=== PATIENT | male | born 1965 | race Caucasian/White ===

== ENCOUNTER 2017-12-09 08:37 | Day surgery (SDC) | payer OTHER, SELFPAY ==
[2017-12-09 08:52] VITALS: BP 101/76; PULSE 89; RESP 16; TEMP 36.6; O2SAT 98; BMI 30.4
--- NOTE | 2017-12-09 10:07 | COLBX_PTH ---
PATIENT: MARIELY ELIZABETH LOC: EN U#:[id number] AGE/SX: 52/M ROOM: RE12/09/[address]: Dr. Edmundo King MD : 1965 BED: DIS: 12/09/2017 SPEC #: [id number] RECD: 12/09/17 11:32 STATUS: ZURI LORENZO #: [id number] CHERY: 12/09/17 10:[address]: Edmundo King DEPT: SURGICAL PATHOLOGY RECD BY: Divya Curtis ENTERED: 12/09/17 12:00 SP TYPE: COLON BX OTHR DR: Dr. Brandon Chen MD Tissues: Cecum, NOS Procedures: Surgery Specimen Level IV HEADER OPERATION: Colonoscopy PRE-OP DIAGNOSIS: Abdominal pain TISSUE SUBMITTED: Cecal polyp MICROSCOPIC DIAGNOSIS Cecal polyp, biopsy: Tubular adenoma. AM:elsi 12/12/17 COMMENT Case has been reviewed in consultation with Dr. Santillan who concurs with the above diagnosis. IDC:SJ MICROSCOPIC DESCRIPTION Slides are reviewed. GROSS DESCRIPTION Received in fixative is one container labeled with the patient's name and designated cecal polyp. The specimen consists of one irregular fragment of light gonzalez soft tissue that measures 0.3 x 0.2 x 0.2 cm. The specimen is totally submitted in one cassette. / CHALO:elsi 12/09/17 TC:5 CPT: 60523
[2017-12-09 10:20] VITALS: BP 101/76; BP 87/58; PULSE 78; RESP 16; TEMP 36.3; O2SAT 97
--- NOTE | 2017-12-09 10:23 | PCM.OPRPT ---
Problem List (1) Colonic thickening Status: Acute Report of Operation Date of Procedure: 12/09/17 Pre-Operative Diagnosis: Thickening of the distal transverse colon on CAT scan Post-Operative Diagnosis: Cecum polyp. Diverticulosis of the entire colon Surgery/Procedure Performed:: Colonoscopy with snare polypectomy Specimen's removed: Cecum polyp Description of Procedure: The major risks and benefits associated with the procedure were explained to the patient in detail. The patient verbalized understanding and agreement with the same. The patient was brought to the endoscopy suite. After adequate sedation was achieved, the patient was placed in the left lateral decubitus position and a digital rectal exam was performed. This examination was within normal limits. A well-lubricated colonoscope was then inserted into the rectum and advanced under direct visualization to the level of the cecum. The bowel prep was good. The cecum was identified by both visual and anatomic landmarks. A photograph was taken of the end of the cecum. The scope was then fully withdrawn while examining the color, texture, anatomy and integrity of the mucosa from the cecum to the anal canal. The findings were consistent with normal colonic mucosa. The patient had diverticulosis of the entire colon. He had a few very large diverticuli in the cecum. One of these contain a polyp which was removed with cautery snare. Over 6 minutes were taken to examine the colonic mucosa. There was no active inflammation. There were no other polyps. There was no thickening of the transverse colon that I identified. I did not find any colitis. Upon reaching the rectum the scope was retroflexed to examine the distal rectal vault. The scope was then straightened and was completely retrieved upon exiting the anal canal and the procedure was terminated. The patient was then transferred to the recovery room in stable condition. Recommendations for follow up: Dependent on pathology
[2017-12-09 10:25] VITALS: BP 101/76; BP 91/62; PULSE 70; RESP 16; O2SAT 99
[2017-12-09 10:30] VITALS: BP 101/76; BP 92/62; PULSE 75; RESP 16; O2SAT 99
[2017-12-09 10:35] VITALS: BP 101/76; BP 90/62; PULSE 64; RESP 16; TEMP 36.3; O2SAT 99
[2017-12-09 10:52] VITALS: BP 101/76
== END 2017-12-09 10:55 | disposition home or self-care (01) ==
LOC: EN 08:37 → AC 08:38
PROVIDERS: Family Provider Family Medicine; PCP Family Medicine; Visit Provider Surgery
PROC: 0DJD8ZZ Inspection of Lower Intestinal Tract, Via Natural or Artificial Opening Endoscopic (ICD-10-PCS; CPT 45378; principal; 2017-12-09 09:40)
DX: D12.0 Benign neoplasm of cecum (principal); K57.30 Diverticulosis of large intestine without perforation or abscess without bleeding; I10 Essential (primary) hypertension; E78.00 Pure hypercholesterolemia, unspecified; F17.220 Nicotine dependence, chewing tobacco, uncomplicated; Z79.899 Other long term (current) drug therapy
CPT/HCPCS: 45385; 88305; J7120

== ENCOUNTER → 2017-12-16 11:02 | Outpatient (CLI) | payer OTHER, SELFPAY ==
[2017-12-16 14:41] LABS: Vitamin B12 547 pg/mL (211-911); Vitamin D,25 Hydroxy 28.2 ng/mL (29.95-100.01)
[2017-12-16 14:52] LABS: ALB/GLOB Ratio 0.8 RATIO (0.9-2.4); AST(SGOT) 118 U/L (15-37); Alanine Aminotransfer ALT/SGPT 130 U/L (16-61); Albumin, Serum 3.6 g/dL (3.2-5.0); Alkaline Phosphatase 103 U/L (45-117); Anion Gap 11 (5-15); BUN 16 mg/dL (7-18); BUN/Creat Ratio 18.2 RATIO (10-20); Calcium,Total 9.1 mg/dL (8.5-10.1); Chloride 106 mmol/L (98-107); Cholesterol 200 mg/dL (200); Creatinine, Serum 0.88 mg/dL (0.70-1.30); EST Glomerular Filtration Rate 96 mL/min (>60); Est Glom Filt Rate - Afr Amer 116 mL/min (>60); Ferritin 771 ng/mL (26-388); GGTP 623 U/L (15-85); Globulin 4.3 g/dL (2.2-4.2); Glucose 87 mg/dL (74-106); High Density Lipoprotein 55 mg/dL; Magnesium 2.3 mg/dL (1.6-2.6); Potassium 3.7 mmol/L (3.5-5.1); Protein, Total 7.9 g/dL (6.4-8.2); Sodium Level 139 mmol/L (136-145); Triglycerides 470 mg/dL
[2017-12-20 14:36] LABS: Iron Binding Capacity,Total 316 ug/dL (250-450)
[2017-12-22 12:53] LABS: Hep C Antibodies <0.1 s/co ratio (0.0-0.9); Transferrin 255 mg/dL (200-370)
== END ==
PROVIDERS: Family Provider Family Medicine; PCP Family Medicine; Visit Provider Family Medicine
DX: I10 Essential (primary) hypertension (principal); E55.9 Vitamin D deficiency, unspecified; F10.10 Alcohol abuse, uncomplicated; R71.8 Other abnormality of red blood cells
CPT/HCPCS: 36415; 80053; 80061; 82306; 82607; 82728; 82977; 83550; 83735; 84466; 86803

== ENCOUNTER → 2018-02-16 11:14 | Outpatient (CLI) | payer OTHER, SELFPAY ==
[2018-02-16 13:18] LABS: Hematocrit 42.1 % (40-54); Hemoglobin 14.4 g/dl (13.0-16.5); Mean Corp Hgb Conc 34.2 g/gl (32-36); Mean Corpuscular Hgb 34.1 pg (27.0-32.0); Mean Corpuscular Volume 99.8 fL (80-94); Mean Platelet Vol. 10.5 fl (6.2-12.0); Platelet Count 160 K/mm3 (150-450); RBC Distribution Width CV 12.5 % (11.6-14.6); RBC Distribution Width SD 45.7 fl (35.1-43.9); Red Blood Count 4.22 M/mm3 (4.6-6.2); Scan Indicated on CBC? Y/N NO; White Blood Count 5.2 K/mm3 (4.4-11.0)
[2018-02-16 13:53] LABS: ALB/GLOB Ratio 0.8 RATIO (0.9-2.4); AST(SGOT) 111 U/L (15-37); Alanine Aminotransfer ALT/SGPT 100 U/L (16-61); Albumin, Serum 3.6 g/dL (3.2-5.0); Alkaline Phosphatase 94 U/L (45-117); Anion Gap 10 (5-15); BUN 13 mg/dL (7-18); BUN/Creat Ratio 12.7 RATIO (10-20); Chloride 102 mmol/L (98-107); Creatinine, Serum 1.02 mg/dL (0.70-1.30); EST Glomerular Filtration Rate 81 mL/min (>60); Est Glom Filt Rate - Afr Amer 98 mL/min (>60); Ferritin 507 ng/mL (26-388); GGTP 595 U/L (15-85); Globulin 4.3 g/dL (2.2-4.2); Glucose 121 mg/dL (74-106); PSA,Total - Annual Screen 0.56 ng/mL (0.00-4.00); Potassium 3.8 mmol/L (3.5-5.1); Protein, Total 7.9 g/dL (6.4-8.2); Sodium Level 134 mmol/L (136-145)
[2018-02-20 09:21] LABS: Iron 158 ug/dL (65-175)
[2018-02-21 09:25] LABS: Transferrin 262 mg/dL (200-370)
== END ==
PROVIDERS: Family Provider Family Medicine; PCP Family Medicine; Visit Provider Family Medicine
DX: R74.8 Abnormal levels of other serum enzymes (principal); Z12.5 Encounter for screening for malignant neoplasm of prostate
CPT/HCPCS: 36415; 80053; 82728; 82977; 83540; 84153; 84466; 85027; G0103

== ENCOUNTER → 2018-04-14 13:51 | Outpatient (CLI) | payer OTHER, SELFPAY ==
--- NOTE | 2018-04-14 13:56 | RAD_ITS ---
STUDY: X-RAY - RIGHT ELBOW REASON FOR EXAM: Male, 53 years old. PT FELL OFF A LADDER A MONTH AGO, CONTINUED PAIN TECHNIQUE: 3 view(s) of the elbow. COMPARISON: None. FINDINGS: Normal visualized humerus, radius and ulna. Normal radiocapitellar and ulnotrochlear articulations. Anterior humeral line and radiocapitellar line are preserved. The soft tissue structures are unremarkable. RAD/Elbow min 3 Views IMPRESSION: Normal x-ray examination of the elbow. Electronically Signed: Armin Gonzalez MD at 20:32 EDT , Service support ,
== END ==
PROVIDERS: Family Provider Family Medicine; PCP Family Medicine; Visit Provider Family Medicine
DX: M25.522 Pain in left elbow (principal)
CPT/HCPCS: 73080

== ENCOUNTER → 2018-08-30 11:54 | Outpatient (CLI) | payer OTHER, SELFPAY ==
[2018-08-30 14:39] LABS: Hematocrit 41.8 % (40-54); Hemoglobin 14.1 g/dl (13.0-16.5); Mean Corp Hgb Conc 33.7 g/gl (32-36); Mean Corpuscular Hgb 34.1 pg (27.0-32.0); Mean Platelet Vol. 10.4 fl (6.2-12.0); Platelet Count 189 K/mm3 (150-450); RBC Distribution Width CV 12.2 % (11.6-14.6); RBC Distribution Width SD 44.5 fl (35.1-43.9); Red Blood Count 4.14 M/mm3 (4.6-6.2); White Blood Count 8.9 K/mm3 (4.4-11.0)
[2018-08-30 14:53] LABS: BUN 20 mg/dL (7-18); Creatinine, Serum 1.14 mg/dL (0.70-1.30); Glucose 106 mg/dL (74-106); Vitamin D,25 Hydroxy 27.8 ng/mL (29.95-100.01)
[2018-08-30 14:54] LABS: ALB/GLOB Ratio 0.8 RATIO (0.9-2.4); AST(SGOT) 78 U/L (15-37); Alanine Aminotransfer ALT/SGPT 98 U/L (16-61); Albumin, Serum 3.7 g/dL (3.2-5.0); Alkaline Phosphatase 85 U/L (45-117); Anion Gap 9 (5-15); BUN/Creat Ratio 17.5 RATIO (10-20); Calcium,Total 8.9 mg/dL (8.5-10.1); Chloride 104 mmol/L (98-107); Cholesterol 205 mg/dL (200); EST Glomerular Filtration Rate 71 mL/min (>60); Est Glom Filt Rate - Afr Amer 86 mL/min (>60); Ferritin 430 ng/mL (26-388); GGTP 590 U/L (15-85); Globulin 4.4 g/dL (2.2-4.2); High Density Lipoprotein 49 mg/dL; Potassium 4.1 mmol/L (3.5-5.1); Protein, Total 8.1 g/dL (6.4-8.2); Sodium Level 134 mmol/L (136-145); Triglycerides 676 mg/dL
[2018-08-30 14:56] LABS: Scan Indicated on CBC? Y/N NO
== END ==
PROVIDERS: Family Provider Family Medicine; PCP Family Medicine; Visit Provider Family Medicine
DX: F10.10 Alcohol abuse, uncomplicated (principal); E78.5 Hyperlipidemia, unspecified; E55.9 Vitamin D deficiency, unspecified; R74.8 Abnormal levels of other serum enzymes
CPT/HCPCS: 36415; 80053; 80061; 82306; 82728; 82977; 85027

== ENCOUNTER → 2019-03-01 10:36 | Outpatient (CLI) | payer OTHER, SELFPAY ==
[2019-03-01 12:41] LABS: Absolute Lymphocyte Count 1.68 X10^3/ul (0.83-4.51); Absolute Neutrophil Count 4.7 X10^3/uL (2.0-7.7); Basophil# 0.06 X10^3/uL; Basophil% 0.8 % (0-1); Eosinophil# 0.09 X10^3/uL; Eosinophils% 1.2 % (0-5); Hematocrit 43.2 % (40-54); Hemoglobin 14.8 g/dl (13.0-16.5); Lymphocyte # 1.68 X10^3/ul (4.0); Lymphocyte % 22.8 % (19-41); Mean Corp Hgb Conc 34.3 g/gl (32-36); Mean Corpuscular Hgb 34.5 pg (27.0-32.0); Mean Corpuscular Volume 100.7 fL (80-94); Mean Platelet Vol. 10.2 fl (6.2-12.0); Monocyte# 0.88 X10^3/uL; Monocyte% 11.9 % (0-10); Neutrophil # 4.65 X10^3/uL (2.7-7.7); Neutrophil % 63.2 % (47-70); Platelet Count 179 K/mm3 (150-450); RBC Distribution Width CV 12.7 % (11.6-14.6); RBC Distribution Width SD 46.6 fl (35.1-43.9); Red Blood Count 4.29 M/mm3 (4.6-6.2); White Blood Count 7.4 K/mm3 (4.4-11.0)
[2019-03-01 12:44] LABS: POSITIVE COUNT NO; POSITIVE DIFFERENTIAL NO; POSITIVE MORPHOLOGY NO
[2019-03-01 12:54] LABS: ALB/GLOB Ratio 0.9 RATIO (0.9-2.4); AST(SGOT) 77 U/L (15-37); Alanine Aminotransfer ALT/SGPT 104 U/L (16-61); Albumin, Serum 3.9 g/dL (3.2-5.0); Alkaline Phosphatase 82 U/L (45-117); Anion Gap 7 (5-15); BUN 10 mg/dL (7-18); BUN/Creat Ratio 9.3 RATIO (10-20); Calcium,Total 9.3 mg/dL (8.5-10.1); Chloride 105 mmol/L (98-107); Creatinine, Serum 1.07 mg/dL (0.70-1.30); EST Glomerular Filtration Rate 76 mL/min (>60); Est Glom Filt Rate - Afr Amer 92 mL/min (>60); GGTP 476 U/L (15-85); Globulin 4.3 g/dL (2.2-4.2); Glucose 97 mg/dL (74-106); PSA,Total - Annual Screen 1.19 ng/mL (0.00-4.00); Potassium 4.1 mmol/L (3.5-5.1); Protein, Total 8.2 g/dL (6.4-8.2); Sodium Level 139 mmol/L (136-145); Uric Acid 7.6 mg/dL (3.5-7.2)
[2019-03-01 12:58] LABS: Vitamin D,25 Hydroxy 37.2 ng/mL (29.95-100.01)
[2019-03-05 09:58] LABS: Vitamin B1, Thiamine 130.1 nmol/L (66.5-200.0)
== END ==
PROVIDERS: Family Provider Family Medicine; PCP Family Medicine; Referring Provider Family Medicine; Visit Provider Family Medicine
DX: Z00.00 Encounter for general adult medical examination without abnormal findings (principal); Z12.5 Encounter for screening for malignant neoplasm of prostate; F10.10 Alcohol abuse, uncomplicated; E55.9 Vitamin D deficiency, unspecified; M10.9 Gout, unspecified
CPT/HCPCS: 36415; 80053; 82306; 82977; 84153; 84425; 84550; 85025; G0103

== ENCOUNTER → 2019-10-01 10:24 | Outpatient (CLI) | payer OTHER, SELFPAY ==
--- NOTE | 2019-10-01 10:29 | RAD_ITS ---
STUDY: X-RAY - UNILATERAL RIBS ( LEFT ) WITH CHEST REASON FOR EXAM: Male, 54 years old. left side rib pain/discomfort for a while, no injury TECHNIQUE - RIBS: 5 view(s) of the ribs. TECHNIQUE - CHEST: Single AP portable view of the chest. COMPARISON: None. FINDINGS - RIBS: Normal visualized ribs without a demonstrated fracture. FINDINGS - CHEST: There is a small left-sided calcified granuloma measuring 0.63 cm. Otherwise normal lungs are clear and expanded. There is no demonstrated pleural abnormality. Normal size heart. Normal mediastinum and petr. Normal visualized pulmonary arteries. Normal visualized aortic arch and descending thoracic aorta. Normal visualized thoracic spine. Normal visualized ribs, clavicles, and shoulders. There is no demonstrated abnormality of the visualized soft tissue structures of the upper abdomen. RAD/Ribs Uni Min 3V w/PA Chest IMPRESSION: RIBS: Unremarkable x-ray examination of the ribs with no acute fracture. CHEST: Small left-sided calcified granuloma, likely sequela of previous granulomatous infection. Otherwise normal x-ray examination of the chest. Electronically Signed: Britney Beckett MD at 2:10 EST , Service support ,
[2019-10-01 13:05] LABS: Absolute Lymphocyte Count 1.74 X10^3/uL (0.83-4.51); Absolute Neutrophil Count 5.9 X10^3/uL (2.0-7.7); Basophil# 0.09 X10^3/uL; Eosinophil# 0.09 X10^3/uL; Hematocrit 45.6 % (40-54); Hemoglobin 15.5 g/dL (13.0-16.5); Lymphocyte # 1.74 X10^3/ul (4.0); Lymphocyte % 19.9 % (19-41); Mean Corpuscular Hgb 33.5 pg (27.0-32.0); Mean Corpuscular Volume 98.7 fL (80-94); Monocyte# 0.89 X10^3/uL; Monocyte% 10.2 % (0-10); NRBC Flagged by Analyzer 0 % (0-5); Neutrophil # 5.92 X10^3/uL (2.7-7.7); Neutrophil % 67.6 % (47-70); Platelet Count 207 K/mm3 (150-450); RBC Distribution Width CV 11.5 % (11.6-14.6); RBC Distribution Width SD 41.9 fl (35.1-43.9); Red Blood Count 4.62 M/mm3 (4.6-6.2); White Blood Count 8.8 K/mm3 (4.4-11.0)
[2019-10-01 13:35] LABS: AST(SGOT) 73 U/L (15-37); Alanine Aminotransfer ALT/SGPT 100 U/L (16-61); Albumin, Serum 4.3 g/dL (3.2-5.0); Alkaline Phosphatase 78 U/L (45-117); Anion Gap 9 (5-15); BUN 15 mg/dL (7-18); Calcium,Total 9.6 mg/dL (8.5-10.1); Chloride 101 mmol/L (98-107); Cholesterol 225 mg/dL (200); Creatinine, Serum 1.07 mg/dL (0.70-1.30); EST Glomerular Filtration Rate 76 mL/min (>60); Est Glom Filt Rate - Afr Amer 92 mL/min (>60); GGTP 362 U/L (15-85); Globulin 4.3 g/dL (2.2-4.2); Glucose 99 mg/dL (74-106); High Density Lipoprotein 71 mg/dL; Potassium 4.5 mmol/L (3.5-5.1); Protein, Total 8.6 g/dL (6.4-8.2); Sodium Level 136 mmol/L (136-145); Triglycerides 476 mg/dL; Uric Acid 6.5 mg/dL (3.5-7.2)
[2019-10-01 13:40] LABS: Vitamin B12 662 pg/mL (211-911); Vitamin D,25 Hydroxy 18.5 ng/mL (29.95-100.01)
== END ==
PROVIDERS: Family Provider Family Medicine; PCP Family Medicine; Referring Provider Family Medicine; Visit Provider Family Medicine
DX: S23.41XA Sprain of ribs, initial encounter (principal); F10.10 Alcohol abuse, uncomplicated; M10.9 Gout, unspecified; E78.5 Hyperlipidemia, unspecified; E55.9 Vitamin D deficiency, unspecified
CPT/HCPCS: 36415; 71101; 80053; 80061; 82306; 82607; 82977; 84550; 85025

== ENCOUNTER → 2020-01-31 10:02 | Outpatient (CLI) | payer OTHER, SELFPAY ==
[2020-01-31 12:12] LABS: Hematocrit 41.6 % (40-54); Hemoglobin 14.1 g/dL (13.0-16.5); Mean Corp Hgb Conc 33.9 g/dL (32-36); Mean Corpuscular Hgb 33.3 pg (27.0-32.0); Mean Corpuscular Volume 98.1 fL (80-94); Platelet Count 173 K/mm3 (150-450); RBC Distribution Width CV 12.3 % (11.6-14.6); RBC Distribution Width SD 44.5 fl (35.1-43.9); Red Blood Count 4.24 M/mm3 (4.6-6.2); White Blood Count 8.6 K/mm3 (4.4-11.0)
[2020-01-31 12:34] LABS: Hemoglobin A1c 5.2 % (4.2-6.3)
[2020-01-31 12:37] LABS: AST(SGOT) 129 U/L (15-37); Alanine Aminotransfer ALT/SGPT 146 U/L (16-61); Albumin, Serum 4.2 g/dL (3.2-5.0); Alkaline Phosphatase 99 U/L (45-117); Anion Gap 9 (5-15); BUN 16 mg/dL (7-18); Calcium,Total 9.7 mg/dL (8.5-10.1); Chloride 106 mmol/L (98-107); Cholesterol 203 mg/dL (200); Creatinine, Serum 1.07 mg/dL (0.70-1.30); EST Glomerular Filtration Rate 76 mL/min (>60); Est Glom Filt Rate - Afr Amer 92 mL/min (>60); GGTP 900 U/L (15-85); Glucose 110 mg/dL (74-106); High Density Lipoprotein 72 mg/dL; PSA,Total - Annual Screen 1.12 ng/mL (0.00-4.00); Potassium 4.2 mmol/L (3.5-5.1); Protein, Total 8.2 g/dL (6.4-8.2); Sodium Level 138 mmol/L (136-145); Triglycerides 360 mg/dL; Very Low Density Lipoprotein 72 mg/dL (5-40)
[2020-01-31 12:49] LABS: Vitamin D,25 Hydroxy 31.9 ng/mL
== END ==
PROVIDERS: PCP Family Medicine; Referring Provider Family Medicine; Visit Provider Family Medicine
DX: Z00.00 Encounter for general adult medical examination without abnormal findings (principal); Z12.5 Encounter for screening for malignant neoplasm of prostate; F10.10 Alcohol abuse, uncomplicated; Y90.9 Presence of alcohol in blood, level not specified; E55.9 Vitamin D deficiency, unspecified; M10.9 Gout, unspecified
CPT/HCPCS: 36415; 80053; 80061; 82306; 82977; 83036; 84153; 85027; G0103

== ENCOUNTER → 2020-07-14 10:25 | Outpatient (CLI) | payer BC, SELFPAY ==
[2020-07-14 12:00] LABS: Hematocrit 38.5 % (40-54); Hemoglobin 13.1 g/dL (13.0-16.5); Mean Corpuscular Hgb 34.5 pg (27.0-32.0); Mean Corpuscular Volume 101.3 fL (80-94); Mean Platelet Vol. 9.6 fl (6.2-12.0); Platelet Count 188 K/mm3 (150-450); RBC Distribution Width CV 12.3 % (11.6-14.6); RBC Distribution Width SD 46.2 fl (35.1-43.9); White Blood Count 7.2 K/mm3 (4.4-11.0)
[2020-07-14 12:27] LABS: ALB/GLOB Ratio 0.8 RATIO (0.9-2.4); AST(SGOT) 106 U/L (15-37); Alanine Aminotransfer ALT/SGPT 109 U/L (16-61); Albumin, Serum 3.7 g/dL (3.2-5.0); Alkaline Phosphatase 81 U/L (45-117); Anion Gap 9 (5-15); BUN 16 mg/dL (7-18); BUN/Creat Ratio 12.3 RATIO (10-20); Calcium,Total 9.4 mg/dL (8.5-10.1); Chloride 106 mmol/L (98-107); Cholesterol 208 mg/dL (200); EST Glomerular Filtration Rate 60 mL/min (>60); Est Glom Filt Rate - Afr Amer 73 mL/min (>60); Ferritin 845 ng/mL (26-388); GGTP 583 U/L (15-85); Globulin 4.6 g/dL (2.2-4.2); Glucose 98 mg/dL (74-106); High Density Lipoprotein 67 mg/dL; Iron 152 ug/dL (65-175); Potassium 4.1 mmol/L (3.5-5.1); Protein, Total 8.3 g/dL (6.4-8.2); Sodium Level 138 mmol/L (136-145); Triglycerides 430 mg/dL
[2020-07-16 09:46] LABS: Vitamin B12 380 pg/mL (211-911); Vitamin D,25 Hydroxy 25.6 ng/mL
== END ==
PROVIDERS: PCP Family Medicine; Visit Provider Family Medicine
DX: F10.10 Alcohol abuse, uncomplicated (principal); R74.8 Abnormal levels of other serum enzymes; E78.5 Hyperlipidemia, unspecified; E55.9 Vitamin D deficiency, unspecified
CPT/HCPCS: 36415; 80053; 80061; 82306; 82607; 82728; 82977; 83540; 85027

== ENCOUNTER → 2020-08-13 10:17 | Outpatient (CLI) | payer BC, SELFPAY ==
--- NOTE | 2020-08-13 10:21 | US_ITS ---
STUDY: ABDOMINAL ULTRASOUND - RIGHT UPPER QUADRANT REASON FOR VISIT: Male, 55 years old H/O ALCOHOL ABUSE TECHNIQUE: Ultrasound evaluation of the right upper quadrant was performed with real-time and static spencer-scale imaging. TECHNICAL QUALITY: Adequate. COMPARISON: None. FINDINGS: Liver: The liver is enlarged and measures 19.2 cm. There is normal echogenicity of the liver. The bile ducts are within normal limits. There is hepatic color flow. The direction of portal flow is hepatopetal. There is no demonstrated mass lesion. Gallbladder: Normal distended gallbladder. The gallbladder wall is slightly thickened and measures 4.0 mm. There is a negative sonographic Prasad''s sign. There is no pericholecystic fluid. There are no gallstones. Common Bile Duct (C.B.D.): The common bile duct measures 7.0 mm. Pancreas: Normal size of the head, body and tail of the pancreas. There is normal echogenicity of the pancreas. There is no demonstrated pancreatic mass or cyst. Right Kidney: Normal size of the right kidney. The right kidney measures 11.5 cm x 6 cm x 7.4 cm. Normal renal cortex. The right cortex measures 2.2 cm. There is no demonstrated renal mass or cyst. There is no right hydronephrosis. US/Liver IMPRESSION: Slightly thickened gallbladder wall. Hepatomegaly. Electronically Signed: Lj Brown, at 15:34 EST , Service support ,
== END ==
PROVIDERS: PCP Family Medicine; Referring Provider Family Medicine; Visit Provider Family Medicine
DX: F10.10 Alcohol abuse, uncomplicated (principal)
CPT/HCPCS: 76705

== ENCOUNTER → 2020-12-29 11:59 | Outpatient (CLI) | payer OTHER, SELFPAY ==
[2020-12-29 15:00] LABS: Hematocrit 40.4 % (40-54); Hemoglobin 13.6 g/dL (13.0-16.5); Mean Corp Hgb Conc 33.7 g/dL (32-36); Mean Corpuscular Hgb 32.2 pg (27.0-32.0); Mean Corpuscular Volume 95.5 fL (80-94); Mean Platelet Vol. 10.2 fl (6.2-12.0); Platelet Count 191 K/mm3 (150-450); RBC Distribution Width CV 12.7 % (11.6-14.6); RBC Distribution Width SD 43.8 fl (35.1-43.9); Red Blood Count 4.23 M/mm3 (4.6-6.2); White Blood Count 9.1 K/mm3 (4.4-11.0)
[2020-12-29 15:09] LABS: International Normalized Ratio 1.1; Partial Thromboplast Time 26.7 Seconds (24.1-36.2); Prothrombin Time (Protime)PT. 13.9 SECONDS (11.7-14.9)
[2020-12-29 15:13] LABS: ALB/GLOB Ratio 1.1 RATIO (0.9-2.4); AST(SGOT) 23 U/L (15-37); Alanine Aminotransfer ALT/SGPT 34 U/L (16-61); Alkaline Phosphatase 61 U/L (45-117); Anion Gap 3 (5-15); BUN 20 mg/dL (7-18); Calcium,Total 9.4 mg/dL (8.5-10.1); Chloride 104 mmol/L (98-107); Creatinine, Serum 0.87 mg/dL (0.70-1.30); EST Glomerular Filtration Rate 96 mL/min (>60); Est Glom Filt Rate - Afr Amer 116 mL/min (>60); Ferritin 128 ng/mL (26-388); GGTP 54 U/L (15-85); Globulin 3.7 g/dL (2.2-4.2); Glucose 93 mg/dL (74-106); Potassium 4.1 mmol/L (3.5-5.1); Protein, Total 7.7 g/dL (6.4-8.2); Sodium Level 136 mmol/L (136-145)
[2020-12-29 15:14] LABS: Vitamin D,25 Hydroxy 24.2 ng/mL
[2020-12-29 15:25] LABS: Alcohol, Blood (Medical)-Serum < 3.0 mg/dL
== END ==
PROVIDERS: PCP Family Medicine; Visit Provider Family Medicine
DX: Z01.812 Encounter for preprocedural laboratory examination (principal); R74.8 Abnormal levels of other serum enzymes; E55.9 Vitamin D deficiency, unspecified; F10.10 Alcohol abuse, uncomplicated
CPT/HCPCS: 36415; 80053; 82077; 82306; 82728; 82977; 85027; 85610; 85730; 87635; U0002

== ENCOUNTER → 2021-05-01 08:46 | Outpatient (CLI) | payer OTHER, SELFPAY ==
[2021-05-01 10:11] LABS: Hematocrit 43.2 % (40-54); Hemoglobin 14.9 g/dL (13.0-16.5); Mean Corp Hgb Conc 34.5 g/dL (32-36); Mean Corpuscular Hgb 33.6 pg (27.0-32.0); Mean Corpuscular Volume 97.3 fL (80-94); Mean Platelet Vol. 10.2 fl (6.2-12.0); Platelet Count 264 K/mm3 (150-450); RBC Distribution Width CV 12.8 % (11.6-14.6); RBC Distribution Width SD 45.5 fl (35.1-43.9); Red Blood Count 4.44 M/mm3 (4.6-6.2); White Blood Count 7.4 K/mm3 (4.4-11.0)
[2021-05-01 10:42] LABS: AST(SGOT) 70 U/L (15-37); Alanine Aminotransfer ALT/SGPT 82 U/L (16-61); Alkaline Phosphatase 80 U/L (45-117); Anion Gap 10 (5-15); BUN 15 mg/dL (7-18); Calcium,Total 9.1 mg/dL (8.5-10.1); Chloride 105 mmol/L (98-107); Cholesterol 146 mg/dL (200); Creatinine, Serum 1.15 mg/dL (0.70-1.30); EST Glomerular Filtration Rate 69 mL/min (>60); Est Glom Filt Rate - Afr Amer 84 mL/min (>60); Globulin 4.2 g/dL (2.2-4.2); Glucose 117 mg/dL (74-106); High Density Lipoprotein 48 mg/dL; Potassium 4.5 mmol/L (3.5-5.1); Protein, Total 8.2 g/dL (6.4-8.2); Sodium Level 137 mmol/L (136-145); Triglycerides 635 mg/dL
[2021-05-01 14:13] LABS: Vitamin D,25 Hydroxy 28.5 ng/mL
== END ==
PROVIDERS: PCP Family Medicine; Referring Provider Family Medicine; Visit Provider Family Medicine
DX: I10 Essential (primary) hypertension (principal); E55.9 Vitamin D deficiency, unspecified; F10.10 Alcohol abuse, uncomplicated; R74.8 Abnormal levels of other serum enzymes
CPT/HCPCS: 36415; 80053; 80061; 82306; 85027

== ENCOUNTER → 2021-09-02 08:40 | Outpatient (CLI) | payer OTHER, SELFPAY ==
[2021-09-02 10:13] LABS: Absolute Lymphocyte Count 1.79 X10^3/uL (0.83-4.51); Absolute Neutrophil Count 3.2 X10^3/uL (2.0-7.7); Basophil# 0.05 X10^3/uL; Basophil% 0.9 % (0-1); Eosinophil# 0.08 X10^3/uL; Eosinophils% 1.4 % (0-5); Hematocrit 35.6 % (40-54); Hemoglobin 12.1 g/dL (13.0-16.5); Lymphocyte # 1.79 X10^3/ul (0.83-4.51); Lymphocyte % 31.5 % (19-41); Mean Platelet Vol. 10.2 fl (6.2-12.0); Monocyte# 0.54 X10^3/uL; Monocyte% 9.5 % (0-10); NRBC Flagged by Analyzer 0 % (0-5); Neutrophil % 56.3 % (47-70); Platelet Count 150 K/mm3 (150-450); RBC Distribution Width SD 51.4 fl (35.1-43.9); Red Blood Count 3.56 M/mm3 (4.6-6.2); White Blood Count 5.7 K/mm3 (4.4-11.0)
[2021-09-02 10:57] LABS: ALB/GLOB Ratio 0.8 RATIO (0.9-2.4); AST(SGOT) 80 U/L (15-37); Alanine Aminotransfer ALT/SGPT 94 U/L (16-61); Albumin, Serum 3.2 g/dL (3.2-5.0); Alkaline Phosphatase 88 U/L (45-117); Anion Gap 10 (5-15); BUN 8 mg/dL (7-18); BUN/Creat Ratio 7.3 RATIO (10-20); Calcium,Total 9.3 mg/dL (8.5-10.1); Chloride 104 mmol/L (98-107); Cholesterol 252 mg/dL (200); EST Glomerular Filtration Rate 73 mL/min (>60); Est Glom Filt Rate - Afr Amer 88 mL/min (>60); GGTP 480 U/L (15-85); Glucose 112 mg/dL (74-106); High Density Lipoprotein 41 mg/dL; PSA,Total - Annual Screen 1.24 ng/mL (0.00-4.00); Potassium 3.7 mmol/L (3.5-5.1); Protein, Total 7.2 g/dL (6.4-8.2); Sodium Level 140 mmol/L (136-145); Triglycerides 723 mg/dL
== END ==
PROVIDERS: PCP Family Medicine; Referring Provider Family Medicine; Visit Provider Family Medicine
DX: E55.9 Vitamin D deficiency, unspecified (principal); I10 Essential (primary) hypertension; F10.10 Alcohol abuse, uncomplicated; Z12.5 Encounter for screening for malignant neoplasm of prostate
CPT/HCPCS: 36415; 80053; 80061; 82977; 84153; 85025; 87086; G0103

== ENCOUNTER → 2022-08-04 | Outpatient (CLI) | payer OTHER, SELFPAY ==
--- NOTE | 2022-08-04 11:58 | RAD_ITS ---
EXAM: XR SOFT TISSUE NECK CLINICAL INDICATION: NODULE TECHNIQUE: Frontal and lateral views of the soft tissues of the neck. This report was created using [employer] report generation technology. COMPARISON: None. FINDINGS: AIRWAY: The visualized paranasal sinuses and visualized upper lungs are clear. BONES/JOINTS: The cervical vertebrae demonstrate normal curvature and alignment. Minimal degenerative disc space narrowing noted at the C5/6 level. The odontoid is intact. SOFT TISSUES: The epiglottis is slightly prominent/rounded, but the aryepiglottic folds are sharply defined, making epiglottitis unlikely. No precervical/retropharyngeal soft tissue swelling is noted. No radiopaque foreign body. VASCULATURE: Atherosclerotic vascular calcification seen in the left side of the neck. There is mild asymmetric soft tissue fullness in the left submandibular region as well as within the left supraclavicular region. RAD/Neck for Soft Tissue IMPRESSION: 1. Asymmetric soft tissue prominence in the left submandibular region and left supraclavicular region, which could be due to submandibular sialadenitis and/or adenopathy. Correlation with a neck CT may be of benefit, as clinically indicated. 2. Atherosclerotic vascular calcification within the neck. Electronically Signed: Torrey Wheatley MD at 6:37 EDT ,
[2022-08-04 15:02] LABS: Erythrocyte Sedimentation Rate 21 mm/hr (0-20)
[2022-08-04 15:04] LABS: Hematocrit 40.2 % (40-54); Hemoglobin 13.5 g/dL (13.0-16.5); Mean Corp Hgb Conc 33.6 g/dL (32-36); Mean Corpuscular Hgb 34.7 pg (27.0-32.0); Mean Corpuscular Volume 103.3 fL (80-94); Mean Platelet Vol. 10.6 fl (6.2-12.0); Platelet Count 154 K/mm3 (150-450); RBC Distribution Width CV 13.2 % (11.6-14.6); Red Blood Count 3.89 M/mm3 (4.6-6.2); White Blood Count 7.7 K/mm3 (4.4-11.0)
[2022-08-04 15:14] LABS: Vitamin B12 479 pg/mL (211-911); Vitamin D,25 Hydroxy 36.1 ng/mL
[2022-08-04 15:28] LABS: ALB/GLOB Ratio 0.8 RATIO (0.9-2.4); AST(SGOT) 164 U/L (15-37); Alanine Aminotransfer ALT/SGPT 145 U/L (16-61); Albumin, Serum 3.5 g/dL (3.2-5.0); Alkaline Phosphatase 150 U/L (45-117); Anion Gap 9 (5-15); BUN 16 mg/dL (7-18); BUN/Creat Ratio 14.2 RATIO (10-20); Calcium,Total 9.4 mg/dL (8.5-10.1); Chloride 102 mmol/L (98-107); Cholesterol 292 mg/dL (200); Creatinine, Serum 1.13 mg/dL (0.70-1.30); EST Glomerular Filtration Rate 71 mL/min (>60); Est Glom Filt Rate - Afr Amer 85 mL/min (>60); Ferritin 1190 ng/mL (26-388); GGTP 1679 U/L (15-85); Globulin 4.4 g/dL (2.2-4.2); Glucose 129 mg/dL (74-106); High Density Lipoprotein 25 mg/dL; Potassium 3.8 mmol/L (3.5-5.1); Protein, Total 7.9 g/dL (6.4-8.2); Sodium Level 135 mmol/L (136-145); Triglycerides 634 mg/dL; Uric Acid 7.3 mg/dL (3.5-7.2)
== END | disposition home or self-care (01) ==
LOC: MTLAB 11:56
PROVIDERS: PCP Family Medicine; Referring Provider Family Medicine; Visit Provider Family Medicine
DX: R22.1 Localized swelling, mass and lump, neck (principal); F10.10 Alcohol abuse, uncomplicated; Y90.9 Presence of alcohol in blood, level not specified; E78.5 Hyperlipidemia, unspecified; E55.9 Vitamin D deficiency, unspecified; M10.9 Gout, unspecified; Z12.5 Encounter for screening for malignant neoplasm of prostate
CPT/HCPCS: 36415; 70360; 80053; 80061; 82306; 82607; 82728; 82977; 84550; 85027; 85652

== ENCOUNTER → 2022-10-12 | Outpatient (CLI) | payer OTHER, SELFPAY ==
--- NOTE | 2022-10-12 07:18 | CT_ITS ---
STUDY: CT SOFT TISSUE NECK WITH CONTRAST REASON FOR EXAM: Male, 57 years old. Left-sided neck swelling. RADIATION DOSAGE (If Supplied By Facility): CTDIvol = ( 18.08 ) mGy, DLP = ( 501.37 ) mGycm TECHNIQUE: The patient was scanned in a multi-detector CT scanner. High resolution transaxial imaging was performed following intravenous administration of IV 75mL Isovue-370. Sagittal and coronal images were reconstructed. Individualized dose optimization techniques were used for this CT. COMPARISON: None. FINDINGS: Normal bilateral parotid glands. Normal bilateral assistant branch manager spaces. Normal bilateral parapharyngeal spaces. Normal bilateral carotid spaces. Normal bilateral sublingual and submandibular glands and spaces. Normal visualized nasopharynx. Normal retropharyngeal space. Normal perivertebral space. Normal visualized bilateral faucial tonsils. The visualized tongue, tongue base and oropharynx are normal. There are minimally enlarged lymph nodes of the neck, with preservation of normal caridad architecture, consistent with a reactive lymph hyperplasia. There is no demonstrated solid or cystic mass lesion. There is no abnormal contrast enhancement. Normal epiglottis, bilateral vallecula and hypopharynx. The pre-epiglottic and paraglottic adipose spaces are normal. Normal visualized bilateral piriform sinuses, aryepiglottic folds, vocal cords, and arytenoid-cricoid articulations. Normal subglottic trachea. Normal bilateral lobes of the thyroid gland. Normal visualized pulmonary apices. Normal visualized paranasal sinuses. Normal visualized cervical spine. CT/Soft Tissue Neck WITH Contrast IMPRESSION: Normal enhanced CT examination of the soft tissues of the neck. Electronically Signed: Lj Brown MD at 13:48 EST ,
--- NOTE | 2022-10-12 07:19 | US_ITS ---
STUDY: ABDOMINAL ULTRASOUND - RIGHT UPPER QUADRANT REASON FOR VISIT: Male, 57 years old FIBROSIS OF LIVER TECHNIQUE: Ultrasound evaluation of the right upper quadrant was performed with real-time and static spencer-scale imaging. TECHNICAL QUALITY: Adequate. COMPARISON: Comparison is made with prior study dated 08/13/2020. FINDINGS: Liver: The liver measures 16.9 cm. There is increased echogenicity consistent with fatty infiltration. The bile ducts are within normal limits. There is hepatic color flow. The direction of portal flow is hepatopetal. There is no demonstrated mass lesion. Gallbladder: Normal distended gallbladder. The gallbladder wall measures 1.2 mm. There is a negative sonographic Prasad''s sign. There is no pericholecystic fluid. There are no gallstones. Common Bile Duct (C.B.D.): The common bile duct measures 8.7 mm. Pancreas: Normal size of the head, body and tail of the pancreas. There is normal echogenicity of the pancreas. There is no demonstrated pancreatic mass or cyst. Right Kidney: Normal size of the right kidney. The right kidney measures 11.4 cm x 5.9 cm x 6.8 cm. Normal renal cortex. The right cortex measures 1.8 cm. There is no demonstrated renal mass or cyst. There is no right hydronephrosis. US/Abdomen Limited IMPRESSION: Fatty infiltration of the liver. Electronically Signed: Lj Brown MD at 13:52 EST ,
--- NOTE | 2022-10-12 07:19 | US_ITS ---
STUDY: ABDOMINAL ULTRASOUND - ELASTOGRAPHY REASON FOR VISIT: Male, 57 years old. Fatty infiltration of the liver. TECHNIQUE: Liver stiffness measurements were obtained on a VivoText RS 85 ultrasound machine using a CA 1-7 probe following the SRU guidelines. 3 measurements were obtained using a 2-D-SWE method. The IQR/M was 15% suggesting a quality data set. TECHNICAL QUALITY: Adequate. COMPARISON: Comparison is made with prior study done earlier today. FINDINGS: Liver: Fatty infiltration of the liver. Median liver stiffness measured 19 kPa. US/Elastography Parenchyma/Organ IMPRESSION: Liver stiffness measures 19 kPa compatible with F3-F4 (Moderate to severe liver fibrosis) Metavir score. Electronically Signed: Lj Brown MD at 13:52 EST ,
[2022-10-12 07:45] LABS: CREATININE FINGERSTICK 1.2 mg/dL (0.70-1.30); EGFR FINGERSTICK > 60.0000 mL/min (>60)
== END | disposition home or self-care (01) ==
LOC: US 07:17
PROVIDERS: PCP Family Medicine; Visit Provider Family Medicine
DX: R22.1 Localized swelling, mass and lump, neck (principal); K74.00 Hepatic fibrosis, unspecified
CPT/HCPCS: 70491; 76705; 76981; Q9967

== ENCOUNTER → 2023-01-31 | Outpatient (CLI) | payer OTHER, SELFPAY ==
[2023-01-31 12:18] LABS: Absolute Lymphocyte Count 1.65 X10^3/uL (0.83-4.51); Absolute Neutrophil Count 3.4 X10^3/uL (2.0-7.7); Basophil# 0.05 X10^3/uL; Basophil% 0.9 % (0-1); Eosinophil# 0.05 X10^3/uL; Eosinophils% 0.9 % (0-5); Hematocrit 40.8 % (40-54); Hemoglobin 14.3 g/dL (13.0-16.5); Lymphocyte # 1.65 X10^3/ul (0.83-4.51); Mean Corpuscular Hgb 34.6 pg (27.0-32.0); Mean Corpuscular Volume 98.8 fL (80-94); Mean Platelet Vol. 10.2 fl (6.2-12.0); Monocyte# 0.53 X10^3/uL; Monocyte% 9.3 % (0-10); NRBC Flagged by Analyzer 0 % (0-5); Neutrophil # 3.38 X10^3/uL (2.7-7.7); Neutrophil % 59.5 % (47-70); Platelet Count 130 K/mm3 (150-450); RBC Distribution Width CV 12.2 % (11.6-14.6); RBC Distribution Width SD 44.9 fl (35.1-43.9); Red Blood Count 4.13 M/mm3 (4.6-6.2); White Blood Count 5.7 K/mm3 (4.4-11.0)
[2023-01-31 12:34] LABS: Vitamin D,25 Hydroxy 28.4 ng/mL
[2023-01-31 14:04] LABS: ALB/GLOB Ratio 0.8 RATIO (0.9-2.4); AST(SGOT) 152 U/L (15-37); Alanine Aminotransfer ALT/SGPT 130 U/L (16-61); Albumin, Serum 3.3 g/dL (3.2-5.0); Alkaline Phosphatase 156 U/L (45-117); Anion Gap 8 (5-15); BUN 18 mg/dL (7-18); BUN/Creat Ratio 17.6 RATIO (10-20); Calcium,Total 8.7 mg/dL (8.5-10.1); Chloride 104 mmol/L (98-107); Creatinine, Serum 1.02 mg/dL (0.70-1.30); EST Glomerular Filtration Rate 79 mL/min (>60); Est Glom Filt Rate - Afr Amer 96 mL/min (>60); Ferritin 754 ng/mL (26-388); GGTP 1550 U/L (15-85); Globulin 4.3 g/dL (2.2-4.2); Glucose 140 mg/dL (74-106); Potassium 3.8 mmol/L (3.5-5.1); Protein, Total 7.6 g/dL (6.4-8.2); Sodium Level 130 mmol/L (136-145)
[2023-02-06 15:07] LABS: Vitamin B1, Thiamine 163.1 nmol/L (66.5-200.0)
== END | disposition home or self-care (01) ==
LOC: MTLAB 10:36
PROVIDERS: PCP Family Medicine; Referring Provider Family Medicine; Visit Provider Family Medicine
DX: F10.10 Alcohol abuse, uncomplicated (principal)
CPT/HCPCS: 36415; 80053; 82306; 82728; 82977; 84425; 85025

== ENCOUNTER → 2023-02-07 | Outpatient (CLI) | payer OTHER, SELFPAY ==
[2023-02-07 15:08] LABS: International Normalized Ratio 1.3; Prothrombin Time (Protime)PT. 16.2 SECONDS (11.7-14.9)
[2023-02-07 15:36] LABS: CRP < 2.90 mg/L (0.0-3.0); LDH 316 U/L (87-241)
[2023-02-07 15:44] LABS: Erythrocyte Sedimentation Rate 15 mm/hr (0-20)
[2023-02-07 15:56] LABS: HIV - WCH Non-Reactive (Nonreactive)
[2023-02-09 14:09] LABS: Anti-Centromere B Ab <0.2 AI (0.0-0.9); Anti-Chromatin <0.2 AI (0.0-0.9); Anti-Jo <0.2 AI (0.0-0.9); Anti-Mitochondrial AB <20.0 Units (0.0-20.0); Anti-Scleroderma-70 AB <0.2 AI (0.0-0.9); Anti-dsDNA Ab 1 IU/mL (0-9); RNP Ab <0.2 AI (0.0-0.9); SJOGREN'S Anti-SS-A test < 0.2 AI (0.0-0.9); SJOGREN'S Anti-SS-B test < 0.2 AI (0.0-0.9); Smith Ab <0.2 AI (0.0-0.9)
[2023-02-10 21:07] LABS: AFP, Tumor Marker 7.3 ng/mL (0.0-8.4); Angiotensin Convert Enzyme 120 U/L (14-82); Anti-Smooth Muscle ABS 10 Units (0-19); Copper, Serum or Plasma 72 ug/dL (69-132); Cytoplasmic Ab (C-ANCA) <1:20 titer (Neg:<1:20); HEPATITIS B SURFACE AG Negative (Negative); Haptoglobin 99 mg/dL (29-370); Hep C Antibodies Non Reactive (Non Reactive); Hepatitis A IgM Antibody Negative (Negative); Hepatitis B Core AB IgM Negative (Negative); Perinuclear Ab (P-ANCA) <1:20 titer (Neg:<1:20)
== END | disposition home or self-care (01) ==
LOC: LAB 14:29
PROVIDERS: Nurse Practitioner Adult Health; PCP Family Medicine; Referring Provider Internal Medicine Gastroenterology; Visit Provider Internal Medicine Gastroenterology
DX: K74.00 Hepatic fibrosis, unspecified (principal); R74.8 Abnormal levels of other serum enzymes
CPT/HCPCS: 80074; 82105; 82140; 82164; 82390; 82525; 83010; 83036; 83516; 83615; 85610; 85652; 86140; 86225; 86235; 86256; 86703

== ENCOUNTER → 2023-02-25 | Outpatient (CLI) | payer OTHER, SELFPAY ==
[2023-02-25] VITALS (8 sets, daily range): BP systolic 104–121; BP diastolic 67–83; PULSE 81–87; RESP 16–18; TEMP 36.8; O2SAT 93–97; BMI 31.3
--- NOTE | 2023-02-25 08:01 | CT_ITS ---
PROCEDURE: CT DIRECTED CORE LIVER BIOPSY INDICATION: Male, 58 years old. Liver stiffness 19 kpa PHYSICIAN: Dr. Kevin Pink CONSENT: Written informed consent was obtained having explained the risks, benefits and alternatives in detail with the patient who accepted the risks and agreed to proceed. Laboratory review and clinical assessment was performed. CONSCIOUS SEDATION PROTOCOL: The Drugs used were: 2 mg Versed, IV., and 50 mcg Fentanyl, IV. The sedation time was: 22 minutes. Conscious sedation was started at 8:50 AM and terminated at 9:12 AM The conscious sedation protocol was independently monitored. RADIATION DOSAGE (If Supplied By Facility): CTDIvol = ( 24 ) mGy, DLP = ( 680.45 ) mGycm Individualized dose optimization techniques were used for this CT. TECHNIQUE: Using CT image guidance with image documentation, a suitable location in the left lobe of the liver was identified. Using an anterior approach, puncture of the liver was uneventful with an 18-gauge core needle system. 3, 18-gauge core samples were obtained, and submitted in formalin to the pathologist for further assessment. Followup CT scan revealed no distinct sequelae. CT/Biopsy/Inj or Needle Placement IMPRESSION: 1. CT directed core needle biopsy of the liver, using CT image guidance with image documentation as described. 2. Conscious Sedation protocol utilized with independent monitoring. Electronically Signed: Lj Brown MD at 9:46 EDT ,
[2023-02-25 08:27] LABS: Platelet Count 154 K/mm3 (150-450)
[2023-02-25] MEDS: fentaNYL 100 MCG/2 ML Ampul IV (08:51)
[2023-02-25] MEDS: Midazolam 2 MG/2 ML Syringe IV (08:51)
[2023-02-25 09:04] LABS: International Normalized Ratio 1.4
[2023-02-25] MEDS: Lidocaine 2% (20 ml mdv) 20 ML Vial INFILT (09:05)
--- NOTE | 2023-02-25 09:10 | LIV_PTH ---
PATIENT: MARIELY ELIZABETH LOC: [place] U#:[id number] AGE/SX: 58/M ROOM: RE02/25/[address]: ADRIAN Ellison : 1965 BED: DIS: 02/25/2023 SPEC #: [id number] RECD: 02/25/23 09:35 STATUS: ZURI REAmy #: [id number] CHERY: 02/25/23 09:[address]: Jaylene Win NP DEPT: SURGICAL PATHOLOGY RECD BY: Mercedes Bellamy ENTERED: 02/25/23 10:37 SP TYPE: LIVER RES OTHR DR: Dr. Brandon Chen MD Tissues: Liver, NOS Procedures: PAS with Diastase (control) Trichrome (control) Special Stain Group II PAS Stain (control) Surgery Specimen Level V Retic (control) Iron Stain (control) HEADER OPERATION: CT-guided liver biopsy PRE-OP DIAGNOSIS: Cirrhosis TISSUE SUBMITTED: Liver 13-gauge x3 MICROSCOPIC DIAGNOSIS Liver, CT-guided core biopsy: Consistent with cirrhosis. See microscopic description and comment. CHALO:elsi 02/28/2023 COMMENT Correlation with clinical, radiologic and laboratory findings and appropriate follow up are necessary. MICROSCOPIC DESCRIPTION Slides are reviewed. The specimen shows liver parenchymal tissue with distortion of normal lobular architecture into multiple nodules divided by fibrous septae. Hepatocytes show focal macrovesicular steatosis. Fibrous septae show mild to focal moderate chronic inflammation predominantly consisting of lymphocytes. Interface inflammation is not seen. Iron stain shows trace amount of iron in the hepatocytes. Trichrome and reticulin stains highlight the fibrous septae. PAS and PASD do not show any abnormal accumulation of protein. All stains are performed with appropriate matched controls. GROSS DESCRIPTION Received is one container labeled with the patient's name and not further designated. The specimen consists of three elongated fragments of gonzalez soft tissue each measuring 2.0 cm in length and 0.1 cm in diameter. The specimen is totally submitted in one cassette. / CHALO:elsi 02/25/2023 TC:5 CPT: 13326, 56035 x5
[2023-02-25 09:21] LABS: Partial Thromboplast Time 30.1 Seconds (24.1-36.2)
== END | disposition home or self-care (01) ==
PROVIDERS: PCP Family Medicine; Referring Provider Nurse Practitioner Adult Health; Visit Provider Nurse Practitioner Adult Health
DX: K74.60 Unspecified cirrhosis of liver (principal)
CPT/HCPCS: 47000; 36415; 77012; 85049; 85610; 85730; 88307; 88313; 99156; J7050

== ENCOUNTER → 2023-04-11 | Outpatient (CLI) | payer OTHER, SELFPAY ==
--- NOTE | 2023-04-11 08:31 | CT_ITS ---
EXAM: CT ABDOMEN AND PELVIS WITHOUT AND WITH INTRAVENOUS CONTRAST CLINICAL INDICATION: cirrhosis, diarrhea -- triple phase TECHNIQUE: Helically acquired images were obtained of the abdomen and pelvis without and with intravenous contrast. This CT exam was performed using one or more of the following dose reduction techniques: automated exposure control, adjustment of the mA and/or kV according to patient size, and/or use of iterative reconstruction technique. CONTRAST: IV 100mL Isovue-370 COMPARISON: No relevant prior studies available. FINDINGS: LOWER THORAX: Unremarkable. Lung bases are clear. No cardiomegaly. No significant pericardial effusion. ABDOMEN: LIVER: Unremarkable. Homogeneous. No focal mass. GALLBLADDER AND BILE DUCTS: Unremarkable. No calcified gallstones. No gallbladder distention or wall edema. No intra- or extrahepatic biliary ductal dilation. PANCREAS: Unremarkable. No focal cystic or solid mass. SPLEEN: Unremarkable. Normal size without focal cystic or solid mass. ADRENALS: Unremarkable. No nodules. KIDNEYS AND URETERS: There is a nonobstructing calyceal stone in the right kidney. Normal renal size and position. STOMACH AND BOWEL: There is sigmoid diverticulosis with no evidence of diverticulitis. No stomach or bowel distention. PELVIS: APPENDIX: No evidence of acute appendicitis. BLADDER: Unremarkable. REPRODUCTIVE: Unremarkable as visualized. No mass. ABDOMEN and PELVIS: INTRAPERITONEAL SPACE: Unremarkable. No ascites or other fluid collection. No free air. BONES/JOINTS: Unremarkable. No suspicious lytic or blastic abnormality. SOFT TISSUES: Unremarkable. No discrete abdominal or pelvic wall hernia. VASCULATURE: Unremarkable. Abdominal aorta is non-dilated. LYMPH NODES: Unremarkable. No enlarged lymph nodes. CT/CT Abd/Pelvis W/WO Contrast IMPRESSION: No acute findings in the abdomen or pelvis. Electronically Signed: Karel Dale MD at 23:46 EDT ,
[2023-04-11 08:55] LABS: CREATININE FINGERSTICK 1.4 mg/dL (0.70-1.30)
== END | disposition home or self-care (01) ==
LOC: CT 08:28
PROVIDERS: PCP Family Medicine; Referring Provider Internal Medicine Gastroenterology; Visit Provider Internal Medicine Gastroenterology
DX: K74.60 Unspecified cirrhosis of liver (principal); R19.7 Diarrhea, unspecified
CPT/HCPCS: 74178; Q9967; A4216

== ENCOUNTER 2023-05-02 06:54 | Day surgery (SDC) | payer OTHER, SELFPAY ==
[2023-05-02] VITALS (7 sets, daily range): BP systolic 109–121; BP diastolic 70–76; PULSE 78–98; RESP 16; TEMP 36.5–36.8; O2SAT 96–99; BMI 30.9
--- NOTE | 2023-05-02 07:11 | HP.PCM_ITS ---
History and Physical Date of Admission: 05/02/23 MARIELY ELIZABETH, is a 58 M who presents to the office today for liver fibrosis. He is accompanied by his . He has elevated liver enzymes. He drinks 12 beers per day, not interested in quitting or cutting back. Liver elastography in 10/2022 shows severe liver stiffness of 19 kpa. Recent platelets are low. He denies jaundice; but said she thinks his eyes have looked yellow. No bleeding, no ascites, no confusion, no edema, no skin changes. No nausea, vomiting, dysphagia, abd pain. He denies bowel concerns, but notes he has watery diarrhea every morning, pt blames the beer. PRN loperamide. No melena or hematochezia. Hx of tubular adenoma in cecum 5 yrs ago. He has elevated triglycerides, not on medication for cholesterol. 01/2023 labs: platelets 130, sodium 130, ferritin 754, GGT 1550, AST 152, ALT 130, alk phos 156 07/2022 labs: trigs 634 2017 colonoscopy: diverticulosis, cecal tubular adenoma 10/12/22 Liver elastography 19 kpa, liver US fatty liver, liver measures 16.9 cm Comorbidities: alcohol abuse, gout, dyslipidemia, HTN PSH: hemorrhoidectomy, umbilical hernia repair ROS Const Constitutional: No fatigue ENT ENT: No difficulty swallowing Gastro GI: Positive for diarrhea; No abdominal pain, belching, bloating, change in bowel habits, change in stool character, coffee ground emesis, constipation, cramping, heartburn, difficulty swallowing, feeling full early, excessive flatus, incontinent of stools, Vomiting blood/hematemesis, Blood in stool, loose stools, Black,tarry stools, nausea/dyspepsia, pain with swallowing, vomiting or other Musc Musculoskeletal: No joint pain Skin Skin: No yellowing of the eye or itchy eyes Psych Psychiatric: No anxiety and No depression Endo Endocrine: No fatigue Aller/Imm Allergy/Immunologic: No itchy eyes Butch/Lymp Hematologic/Lymphatic: No easy bleeding or easy bruising Exam Const General: cooperative and no acute distress Orientation: alert, awake and oriented x3 Eyes Sclera: sclerae normal Resp Effort & Inspection: normal respiratory effort GI Inspection: distended Skin General: no rashes or lesions noted Neuro Gait: normal gait Psych Mood: congruent mood Quality Reporting Tobacco Screening ([facility] 138) Smoking Status: Current every day smoker Assessment and Plan Assessment and Plan (1) Liver fibrosis: Status: Chronic Plan: 58 yr old male w/ liver fibrosis, likely cirrhosis, due to alcohol abuse. Comorbid hypertriglceridemia. Not interested in quitting/cutting back on alcohol, 12 beers per day. Labs to complete liver eval Liver biopsy, expect cirrhosis Will call pt with results of labs and bx EGD and Colonoscopy, office f/u 2 wks after Needs med(s) for elevated trigs He is on NSBB for HTN. Will eval for varices on EGD Consider CT abd (2) Abnormal liver enzymes: Status: Acute Orders: Orders HIV - [facility] Today K74.00 - Hepatic fibrosis, unspecified, R74.8 - Abnormal levels of other serum enzymes CRP Today K74.00 - Hepatic fibrosis, unspecified, R74.8 - Abnormal levels of other serum enzymes LDH Today K74.00 - Hepatic fibrosis, unspecified, R74.8 - Abnormal levels of other serum enzymes Hemoglobin A1c Today K74.00 - Hepatic fibrosis, unspecified, R74.8 - Abnormal levels of other serum enzymes Prothrombin Time w/INR Today K74.00 - Hepatic fibrosis, unspecified, R74.8 - Abnormal levels of other serum enzymes Erythrocyte Sed Rate Today K74.00 - Hepatic fibrosis, unspecified, R74.8 - Abnormal levels of other serum enzymes Anti-Mitochondrial AB Today K74.00 - Hepatic fibrosis, unspecified, R74.8 - Abnormal levels of other serum enzymes DUSTIN Comprehensive Panel Today K74.00 - Hepatic fibrosis, unspecified, R74.8 - Abnormal levels of other serum enzymes Hepatitis Panel Acute Today K74.00 - Hepatic fibrosis, unspecified, R74.8 - Abnormal levels of other serum enzymes Angiotensin Convert Enzyme Today K74.00 - Hepatic fibrosis, unspecified, R74.8 - Abnormal levels of other serum enzymes AFP, Tumor Marker Today K74.00 - Hepatic fibrosis, unspecified, R74.8 - Abnormal levels of other serum enzymes ANCA Today K74.00 - Hepatic fibrosis, unspecified, R74.8 - Abnormal levels of other serum enzymes Anti-Smooth Muscle ABS Today K74.00 - Hepatic fibrosis, unspecified, R74.8 - Abnormal levels of other serum enzymes Ceruloplasmin Today K74.00 - Hepatic fibrosis, unspecified, R74.8 - Abnormal levels of other serum enzymes Copper, Serum or Plasma Today K74.00 - Hepatic fibrosis, unspecified, R74.8 - Abnormal levels of other serum enzymes Haptoglobin Today K74.00 - Hepatic fibrosis, unspecified, R74.8 - Abnormal levels of other serum enzymes Ammonia Today K74.00 - Hepatic fibrosis, unspecified, R74.8 - Abnormal levels of other serum enzymes Biopsy/Inj or Needle Placement Today K74.00 - Hepatic fibrosis, unspecified, R74.8 - Abnormal levels of other serum enzymes Medications: Discontinued hydroxyzine HCl Discontinued Reason: Pt no longer taking 25 mg PO QHS I have examined the patient and the H&P has been reviewed. There are no clinical changes since date of exam.
[2023-05-02] MEDS: Lactated Ringers 1,000 ML 15 ML IV (07:35)
--- NOTE | 2023-05-02 08:00 | COLBX_PTH ---
PATIENT: MARIELY ELIZABETH LOC: EN U#:[id number] AGE/SX: 58/M ROOM: RE05/02/[address]: Dr. Juarez Mcdowell DO : 1965 BED: DIS: 05/02/2023 SPEC #: [id number] RECD: 05/02/23 11:21 STATUS: ZURI BJ #: [id number] CHERY: 05/02/23 08:[address]: Juarez Mcdowell DEPT: SURGICAL PATHOLOGY RECD BY: Divya uCrtis ENTERED: 05/02/23 13:29 SP TYPE: COLON BX OTHR DR: Dr. Brandon Chen MD Tissues: A - Gastric mucous membrane B - POLYP C - Ascending colon Procedures: Surgery Specimen Level IV HEADER OPERATION: Colonoscopy, EGD ([facility]), biopsy, polypectomy PRE-OP DIAGNOSIS: Liver fibrosis, abnormal liver enzymes TISSUE SUBMITTED: A - Gastric body biopsy, B - Polyp splenic flexure, C - Polyp ascending colon MICROSCOPIC DIAGNOSIS A. Gastric body, biopsy: Mild gastritis. See microscopic description and comment. B. Splenic flexure polyp, polypectomy: Tubular adenoma. C. Ascending colon polyp, polypectomy: Fragments of tubular adenoma. SJ:rg 05/03/2023 COMMENT A. The results of immunohistochemistry for Helicobacter pylori will be reported separately ([id number]). MICROSCOPIC DESCRIPTION Slides are reviewed. A. The specimen shows fragments of gastric mucosa with chronic inflammatory cell infiltrates in the lamina propria consisting of lymphocytes and plasma cells, consistent with mild chronic gastritis. GROSS DESCRIPTION A - Received in fixative is one container labeled with the patient's name and designated gastric body. The specimen consists of two irregular fragments of light gonzalez soft tissue that in aggregate measure 0.8 x 0.4 x 0.1 cm. The specimen is totally submitted in one cassette. B - Received in fixative is one container labeled with the patient's name and designated polyp splenic flexure. The specimen consists of a gonzalez-pink polyp measuring 0.6 x 0.5 x 0.3 cm. The specimen is totally submitted in one cassette. C - Received in fixative is one container labeled with the patient's name and designated polyp ascending colon. The specimen consists of multiple irregular fragments of light gonzalez soft tissue that in aggregate measure 1.0 x 0.6 x 0.3 cm. The specimen is totally submitted in one cassette. / SJ:rg 05/02/2023 TC:1 CPT: 93540 x3
--- NOTE | 2023-05-02 08:46 | OP.EGD_ITS ---
Patient Name: Johnathon Bhandari Procedure Date: 05/02/2023 8:13 AM Date of : 1965 Age: 58 Procedure: Upper GI endoscopy Indications: Follow-up of esophageal varices Providers: Juarez Mcdowell DO Medicines: Monitored Anesthesia Care Patient Profile: This is a 58 year old male. Refer to note in patient chart for documentation of history and physical. Patient has symptoms of chronic nausea. Complications: No immediate complications. Procedure: Pre-Anesthesia Assessment: - Prior to the procedure, a History and Physical was performed, and patient medications and allergies were reviewed. The risks and benefits of the procedure and the sedation options and risks were discussed with the patient. All questions were answered and informed consent was obtained. Patient identification and proposed procedure were verified by the physician. Mental Status Examination: normal. Prophylactic Antibiotics: The patient does not require prophylactic antibiotics. Prior Anticoagulants: The patient has taken no previous anticoagulant or antiplatelet agents. After reviewing the risks and benefits, the patient was deemed in satisfactory condition to undergo the procedure. The anesthesia plan was to use monitored anesthesia care (MAC). Immediately prior to administration of medications, the patient was re-assessed for adequacy to receive sedatives. The heart rate, respiratory rate, oxygen saturations, blood pressure, adequacy of pulmonary ventilation, and response to care were monitored throughout the procedure. The physical status of the patient was re-assessed after the procedure. After obtaining informed consent, the endoscope was passed under direct vision. Throughout the procedure, the patient's blood pressure, pulse, and oxygen saturations were monitored continuously. The Endoscope was introduced through the mouth, and advanced to the second part of duodenum. The upper GI endoscopy was accomplished without difficulty. The patient tolerated the procedure well. Scope In: 8:23:37 AM Scope Out: 8:25:21 AM Total Procedure Duration Time 0 hours 1 minute 44 seconds Findings: Non-severe esophagitis with no bleeding was found 39 to 40 cm from the incisors. Severe portal hypertensive gastropathy was found in the entire examined stomach. Biopsies were taken with a cold forceps for histology. Verification of patient identification for the specimen was done. Estimated blood loss was minimal. Many non-bleeding superficial duodenal ulcers with no stigmata of bleeding were found in the duodenal bulb. The largest lesion was 6 mm in largest dimension. Impression: - Non-severe reflux esophagitis. - Portal hypertensive gastropathy. Biopsied. - Multiple non-bleeding duodenal ulcers with no stigmata of bleeding. Recommendation: - Use Protonix (pantoprazole) 20 mg PO BID. - Continue present medications. Procedure Code(s): --- Professional --- 12865, Esophagogastroduodenoscopy, flexible, transoral; with biopsy, single or multiple CPT copyright 2017 [employer]. All rights reserved. The codes documented in this report are preliminary and upon cushion builder review may be revised to meet current compliance requirements. Juarez Mcdowell DO 05/02/2023 8:46:08 AM This report has been signed electronically. Number of Addenda: 0 Note Initiated On: 05/02/2023 8:13 AM
--- NOTE | 2023-05-02 08:47 | OP.CCLET_ITS ---
05/02/2023 Serge Chen [address] [place] [address] Re : Upper GI endoscopy procedure for Johnathon Bhandari Dear Dr. Chen This procedure was performed on Tuesday, May 02, 2023. My impressions and recommendations are as follows: Impressions : - Non-severe reflux esophagitis. - Portal hypertensive gastropathy. Biopsied. - Multiple non-bleeding duodenal ulcers with no stigmata of bleeding. Recommendations : - Use Protonix (pantoprazole) 20 mg PO BID. - Continue present medications. My findings are described in the full procedure note, which is enclosed. If I can be of further assistance, please feel free to contact me at . Sincerely, Juarez Mcdowell, 05/02/2023 8:46:08 AM This report has been signed electronically.
--- NOTE | 2023-05-02 08:52 | OP.COLON_ITS ---
Patient Name: Johnathon Bhandari Procedure Date: 05/02/2023 8:26 AM Date of : 1965 Age: 58 Procedure: Colonoscopy Indications: High risk colon cancer surveillance: Personal history of colonic polyps Providers: Juarez Mcdowell DO Medicines: Monitored Anesthesia Care Patient Profile: This is a 58 year old male. Refer to note in patient chart for documentation of history and physical. Patient has symptoms of chronic nausea. Last Colonoscopy: 3 years ago. Complications: No immediate complications. Procedure: Pre-Anesthesia Assessment: - Prior to the procedure, a History and Physical was performed, and patient medications and allergies were reviewed. The risks and benefits of the procedure and the sedation options and risks were discussed with the patient. All questions were answered and informed consent was obtained. Patient identification and proposed procedure were verified by the physician. Mental Status Examination: normal. Prophylactic Antibiotics: The patient does not require prophylactic antibiotics. Prior Anticoagulants: The patient has taken no previous anticoagulant or antiplatelet agents. After reviewing the risks and benefits, the patient was deemed in satisfactory condition to undergo the procedure. The anesthesia plan was to use monitored anesthesia care (MAC). Immediately prior to administration of medications, the patient was re-assessed for adequacy to receive sedatives. The heart rate, respiratory rate, oxygen saturations, blood pressure, adequacy of pulmonary ventilation, and response to care were monitored throughout the procedure. The physical status of the patient was re-assessed after the procedure. After I obtained informed consent, the scope was passed under direct vision. Throughout the procedure, the patient's blood pressure, pulse, and oxygen saturations were monitored continuously. The pediatric colonoscope was introduced through the anus and advanced to the cecum, identified by the appendiceal orifice, IC valve and transillumination. The colonoscopy was performed without difficulty. The patient tolerated the procedure well. The quality of the bowel preparation was adequate. Scope In: 8:28:00 AM Scope Withdrawal Time 0 hours 5 minutes 37 seconds Scope Out: 8:39:12 AM Total Procedure Duration Time 0 hours 11 minutes 12 seconds Findings: The perianal and digital rectal examinations were normal. Non-bleeding internal hemorrhoids were found during retroflexion. The hemorrhoids were Grade II (internal hemorrhoids that prolapse but reduce spontaneously). Two sessile polyps were found in the splenic flexure and ascending colon. The polyps were 1 to 2 mm in size. These polyps were removed with a hot snare. Resection and retrieval were complete. Verification of patient identification for the specimen was done. Estimated blood loss was minimal. Multiple small and large-mouthed diverticula were found in the entire colon. Impression: - Non-bleeding internal hemorrhoids. - Two 1 to 2 mm polyps at the splenic flexure and in the ascending colon, removed with a hot snare. Resected and retrieved. - Diverticulosis in the entire examined colon. Recommendation: - Discharge patient to home. - Resume previous diet. - Continue present medications. - Await pathology results. - Repeat colonoscopy in 3 years for surveillance. Procedure Code(s): --- Professional --- 22511, RT, Colonoscopy, flexible; with removal of tumor(s), polyp(s), or other lesion(s) by snare technique CPT copyright 2017 [employer]. All rights reserved. The codes documented in this report are preliminary and upon explosive ordnance technician review may be revised to meet current compliance requirements. Juarez Mcdowell DO 05/02/2023 8:52:10 AM This report has been signed electronically. Number of Addenda: 0 Note Initiated On: 05/02/2023 8:26 AM
--- NOTE | 2023-05-02 08:53 | OP.CCLET_ITS ---
05/02/2023 Serge Chen [address] [place] [address] Re : Colonoscopy procedure for Johnathon Bhandari Dear Dr. Chen This procedure was performed on Tuesday, May 02, 2023. My impressions and recommendations are as follows: Impressions : - Non-bleeding internal hemorrhoids. - Two 1 to 2 mm polyps at the splenic flexure and in the ascending colon, removed with a hot snare. Resected and retrieved. - Diverticulosis in the entire examined colon. Recommendations : - Discharge patient to home. - Resume previous diet. - Continue present medications. - Await pathology results. - Repeat colonoscopy in 3 years for surveillance. My findings are described in the full procedure note, which is enclosed. If I can be of further assistance, please feel free to contact me at . Sincerely, Juarez Mcdowell, 05/02/2023 8:52:10 AM This report has been signed electronically.
--- NOTE | 2023-05-02 09:00 | IMM_PTH ---
PATIENT: MARIELY ELIZABETH LOC: EN U#:[id number] AGE/SX: 58/M ROOM: RE05/02/[address]: Dr. Juarez Mcdowell DO : 1965 BED: DIS: 05/02/2023 SPEC #: [id number] RECD: 05/02/23 14:21 STATUS: ZURI REAmy #: [id number] CHERY: 05/02/23 09:[address]: Juarez Mcdowell DEPT: IMMUNOHISTOCHEMISTRY RECD BY: Katy Somers ENTERED: 05/02/23 14:22 SP TYPE: IMMUNO OTHR DR: Dr. Brandon Chen MD Tissues: A - Stomach, NOS Procedures: H Pylori (initial) PHYSICIAN & INSTITUTION [place] [address] SPECIMEN INFORMATION: Tissue Source: A - Gastric body Clinical Info: Liver fibrosis, abnormal liver enzymes Specimen Number: [id number] CPT code: 89824 METHODOLOGY: Deparaffinized sections of prefer/formalin-fixed tissue or PAP/DQ stained slides are incubated with monoclonal/polyclonal antibodies/oligonucleotide probes. Localization is made via biotin free immunoperoxidase method. Appropriate controls are performed and reacted as expected. Results on target cell population are indicated in the following table: RESULTS: ANTIBODY / CLONE RESULT Block A H Pylori (polyclonal) negative These tests were developed and their performance characteristics determined by [facility]. They may not have been cleared or approved by the U.S. Food and Drug Administration. The FDA has determined that such clearance or approval is not necessary. The above immunohistochemical/dualISH markers are ordered and reviewed by the Pathologist. INTERPRETATION: A. Gastric body, biopsy: Negative for Helicobacter pylori organisms. SJ:elsi 05/03/2023
== END 2023-05-02 09:37 | disposition home or self-care (01) ==
LOC: EN 07:01 → AC 07:02
PROVIDERS: PCP Family Medicine; Referring Provider Family Medicine; Visit Provider Internal Medicine Gastroenterology
PROC: 0DJD8ZZ Inspection of Lower Intestinal Tract, Via Natural or Artificial Opening Endoscopic (ICD-10-PCS; CPT 45378; principal; 2023-05-02 07:55)
DX: Z12.11 Encounter for screening for malignant neoplasm of colon (principal); K76.6 Portal hypertension; D12.2 Benign neoplasm of ascending colon; D12.3 Benign neoplasm of transverse colon; K31.89 Other diseases of stomach and duodenum; K21.00 Gastro-esophageal reflux disease with esophagitis, without bleeding; K26.9 Duodenal ulcer, unspecified as acute or chronic, without hemorrhage or perforation; K64.1 Second degree hemorrhoids; K57.30 Diverticulosis of large intestine without perforation or abscess without bleeding; K74.00 Hepatic fibrosis, unspecified; K29.70 Gastritis, unspecified, without bleeding; I10 Essential (primary) hypertension; F10.10 Alcohol abuse, uncomplicated; Y90.9 Presence of alcohol in blood, level not specified; F17.220 Nicotine dependence, chewing tobacco, uncomplicated; Z79.899 Other long term (current) drug therapy; Z86.010 Personal history of colon polyps
CPT/HCPCS: 45385; 43239; 88305; 88342; J7120; J2405

== ENCOUNTER → 2023-07-15 | Outpatient (CLI) | payer OTHER, SELFPAY ==
[2023-07-15 11:39] LABS: Erythrocyte Sedimentation Rate 5 mm/hr (0-20)
[2023-07-15 11:40] LABS: Absolute Lymphocyte Count 1.74 X10^3/uL (0.83-4.51); Absolute Neutrophil Count 4.6 X10^3/uL (2.0-7.7); Basophil# 0.09 X10^3/uL; Basophil% 1.3 % (0-1); Eosinophil# 0.05 X10^3/uL; Eosinophils% 0.7 % (0-5); Hematocrit 43.1 % (40-54); Hemoglobin 14.9 g/dL (13.0-16.5); Lymphocyte # 1.74 X10^3/ul (0.83-4.51); Lymphocyte % 24.2 % (19-41); Mean Corp Hgb Conc 34.6 g/dL (32-36); Mean Corpuscular Hgb 34.6 pg (27.0-32.0); Mean Platelet Vol. 9.6 fl (6.2-12.0); Monocyte% 9.7 % (0-10); NRBC Flagged by Analyzer 0 % (0-5); Neutrophil # 4.59 X10^3/uL (2.7-7.7); Neutrophil % 63.8 % (47-70); Platelet Count 170 K/mm3 (150-450); RBC Distribution Width CV 12.4 % (11.6-14.6); RBC Distribution Width SD 45.9 fl (35.1-43.9); Red Blood Count 4.31 M/mm3 (4.6-6.2); White Blood Count 7.2 K/mm3 (4.4-11.0)
[2023-07-15 11:50] LABS: International Normalized Ratio 1.3; Prothrombin Time (Protime)PT. 16.6 SECONDS (11.7-14.9)
[2023-07-15 12:22] LABS: ALB/GLOB Ratio 0.8 RATIO (0.9-2.4); AST(SGOT) 116 U/L (15-37); Alanine Aminotransfer ALT/SGPT 131 U/L (16-61); Albumin, Serum 3.9 g/dL (3.2-5.0); Alkaline Phosphatase 123 U/L (45-117); Anion Gap 7 (5-15); BUN 17 mg/dL (7-18); BUN/Creat Ratio 14.3 RATIO (10-20); CRP < 2.90 mg/L (0.0-3.0); Calcium,Total 9.3 mg/dL (8.5-10.1); Chloride 102 mmol/L (98-107); Cholesterol 205 mg/dL (200); Creatinine, Serum 1.19 mg/dL (0.70-1.30); EST Glomerular Filtration Rate 66 mL/min (>60); Est Glom Filt Rate - Afr Amer 80 mL/min (>60); Globulin 4.7 g/dL (2.2-4.2); Glucose 131 mg/dL (74-106); High Density Lipoprotein 42 mg/dL; LDH 226 U/L (87-241); Potassium 4.3 mmol/L (3.5-5.1); Protein, Total 8.6 g/dL (6.4-8.2); Sodium Level 135 mmol/L (136-145); Triglycerides 932 mg/dL
== END | disposition home or self-care (01) ==
LOC: LAB 10:19
PROVIDERS: PCP Family Medicine; Referring Provider Internal Medicine Gastroenterology; Visit Provider Internal Medicine Gastroenterology
DX: K70.30 Alcoholic cirrhosis of liver without ascites (principal); R74.8 Abnormal levels of other serum enzymes; R19.7 Diarrhea, unspecified
CPT/HCPCS: 36415; 80053; 80061; 82140; 83615; 85025; 85610; 85652; 86140

== ENCOUNTER → 2023-08-19 | Outpatient (CLI) | payer OTHER, SELFPAY ==
--- NOTE | 2023-08-19 09:20 | US_ITS ---
STUDY: ABDOMINAL ULTRASOUND - RIGHT UPPER QUADRANT; ELASTOGRAPHY REASON FOR VISIT: Male, 58 years old. Fatty infiltration of the liver. TECHNIQUE: Ultrasound evaluation of the right upper quadrant was performed with real-time and static spencer-scale imaging. Point quantification shear wave elastography was performed ([facility]). TECHNICAL QUALITY: Adequate. COMPARISON: Comparison is made with prior ultrasound dated October 12, 2022. FINDINGS: Liver: The liver is enlarged and measures 19.3 cm. There is increased echogenicity consistent with fatty infiltration. The bile ducts are within normal limits. There is hepatic color flow. The direction of portal flow is hepatopetal. There is no demonstrated mass lesion. Median liver stiffness measured 25 kPa. Gallbladder: Normal distended gallbladder. The gallbladder wall measures 2.7 mm. There is a negative sonographic Prasad''s sign. There is no pericholecystic fluid. There are no gallstones. Common Bile Duct (C.B.D.): The common bile duct measures 8.4 mm. Pancreas: There is increased echogenicity of the pancreas. There is no demonstrated pancreatic mass or cyst. Right Kidney: Normal size of the right kidney. The right kidney measures 11.1 cm x 7.3 cm x 6.6 cm. Normal renal cortex. The right cortex measures 1.4 cm. There is no demonstrated renal mass or cyst. There is no right hydronephrosis. US/ABD Limited w/ Elastography IMPRESSION: 1. Liver stiffness measures 25 kPa compatible with F3-F4 (Moderate to severe liver fibrosis) Metavir score. Electronically Signed: Lj Brown MD at 15:08 EST ,
[2023-08-23 14:09] LABS: Pancreatic Elastase, Fecal 249 (>200)
[2023-08-25 13:08] LABS: Calprotectin, Stool 68 ug/g (0-120)
== END | disposition home or self-care (01) ==
LOC: US 09:12
PROVIDERS: PCP Family Medicine; Referring Provider Internal Medicine Gastroenterology; Visit Provider Internal Medicine Gastroenterology
DX: K70.30 Alcoholic cirrhosis of liver without ascites (principal); R19.7 Diarrhea, unspecified
CPT/HCPCS: 76705; 76981; 82653; 83630; 83993; 87177; 87209; 87329; 87493; 87506

== ENCOUNTER → 2023-10-24 | Outpatient (CLI) | payer OTHER, SELFPAY ==
--- OUTSIDE RECORDS SUMMARY | 2023-10-24 08:19 | XMS RPT_ITS | CCD ---
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 0 06/01/2023 Active Problems Problem Classification Problem Date Documented Date Episodic/Chronic Alcohol-related disorders (2 sources) Ascites due to alcoholic hepatitis; Translations: [Alcoholic hepatitis with ascites] Onset: 08-19-2023 08-18-2023 Chronic Noninfectious gastroenteritis (2 sources) Chronic diarrhea; Translations: [Noninfective gastroenteritis and colitis, unspecified] Onset: 08-19-2023 08-18-2023 Episodic Results Test Name Value Interpretation Reference Range Facil ity Vital Signs Date Time Vital Sign Value Performing Clinician Faci lity 08-18-2023 16:08-0500 Body height 175.3 cm Corina Doe MD Work Phone: [facility] 08-18-2023 16:08-0500 Body weight 100.06 kg Corina Doe MD Work Phone: [facility] 08-18-2023 16:08-0500 Diastolic blood pressure 84 mm[Hg] Corina Doe MD Work Phone: [facility] 08-18-2023 16:08-0500 Heart rate 89 /min Corina Doe MD Work Phone: [facility] 08-18-2023 16:08-0500 Systolic blood pressure 138 mm[Hg] Corina Doe MD Work Phone: [facility] Encounters Encounter Date Encounter Type Care Provider Facility Start: 08-19-2023 End: 08-20-2023 [facility] Start: 08-18-2023 End: 08-18-2023 ambulatory [facility] Facility:[facility] Start: 08-18-2023 End: 08-18-2023 Office outpatient new 60 minutes Corina Doe MD Work Phone: [facility] [place] Plan of Treatment Date Care Activity Detail Author Start: 08-18-2023 End: 11-17-2023 C reactive protein [Mass/volume] in Serum or Plasma C-REACTIVE PROTEIN (CRP) Lab Routine Chronic diarrhea Expected: 08/18/2023, Expires: 11/17/2023 [facility] Work Phone: Payers Date Payer Category Payer Private Health Insurance [employer] ETNA POS [id number] 2020-Present [phone] [address] [place] [address] POS [id number] 2020 Private Health Insurance [id number] Social History Date Type Detail Facility Start: 08-18-2023 Tobacco smoking stat us NHIS Never smoked tobacco [facility] Start: 08-18-2023 Tobacco use and exposure User of smo keless tobacco [facility] of tobacco use [facility] Start: 08-18-2023 Alcohol intake Current drinke r of alcohol (finding) [facility] Start: 08-18-2023 [facility] Start: 08-18-2023 Tobacco use panel [facility] National Score (1-10 0), lower number is lower risk 59 [facility] Start: 08-18-2023 Tobacco Comment Chewing tobacc o 30 years, daily use [facility] Start: 08-18-2023 Alcohol Comment Has cut back f rom 12 pk daily in the last 3/4 weeks, as of 08/18/23 [facility] Start: 1965 Sex Assigned At Not on file [facility] Progress note 08-18-2023 Note Date & Type Note Facility 08-18-2023 Note HNO ID: [id number] Author: Corina Doe MD Service: ? Author Type: Physician Type: Progress Notes Filed: 08/20/2023 4:41 PM Note Text: CHIEF COMPLAINT: Patient presents with: Liver Disease: Cirrhosis stage 4, [place] workup[facility] [place] [facility] Johnathon Bhandari is a 58 year old male who presents for Liver Disease (Cirrhosis stage 4, full workup, [place] [facility] HPI 58 YOM with alcoholic hepatitis and likeley cirrhosis MELD 3.0 11. Per previous notes He drinks 12 beers per day, not interested in quitting or cutting back . Liver elastography in Oct 2022 with 19 kPa. (F4) Comprehensive workup done in [place]. EtOH use disorder. Associated with diarrhea when he drinks. For second opinion. He knows that he needs to get help to stop drinking. AST and ALT x2-3 ULN. EGD and colonoscopy April 2023 ([facility]) Impression: - Non-severe reflux esophagitis. - Portal hypertensive gastropathy. Biopsied. - Multiple non-bleeding duodenal ulcers with no stigmata of bleeding. - Non-bleeding internal hemorrhoids. - Two 1 to 2 mm polyps at the splenic flexure and in the ascending colon, removed with a hot snare. Resected and retrieved. - Diverticulosis in the entire examined colon. Recommendation: - Discharge patient to home. - Resume previous diet. Path A. Gastric body, biopsy: Mild gastritis. See microscopic description and comment. B. Splenic flexure polyp, polypectomy: Tubular adenoma. C. Ascending colon polyp, polypectomy: Fragments of tubular adenoma. CTAP April 2023 LOWER THORAX: Unremarkable. Lung bases are clear. No cardiomegaly. No significant pericardial effusion. ABDOMEN: LIVER: Unremarkable. Homogeneous. No focal mass. GALLBLADDER AND BILE DUCTS: Unremarkable. No calcified gallstones. No gallbladder distention or wall edema. No intra- or extrahepatic biliary ductal dilation. PANCREAS: Unremarkable. No focal cystic or solid mass. Record Review: [facility] / Outside records reviewed. PAST MEDICAL HISTORY Diagnosis Date Cirrhosis with alcoholism (HCC) Essential hypertension Mixed hyperlipidemia Neck nodule Nicotine dependence Wears glasses PAST SURGICAL HISTORY Procedure Laterality Date COLONOSCOPY SCREENING 05/02/2023 2 tubular adenomas, internal hemorrhoids, diverticulosis throughout colon EGD W/O BRSH SPEC VARICIES INJ 05/02/2023 severe portal hypertenive gastropathy in entire examined stomach, reflux esophagitis HEMORRHOIDECTOMY HERNIA REPAIR HX LIVER BIOPSY 02/25/2023 results consistent with cirrhosis, [facility] LIVER ELASTOGRAPHY 10/12/2022 F 3-4, [facility] REPAIR ROTATOR CUFF,ACUTE Right Allergies: ALLERGIES Not on File Medications: amLODIPine (NORVASC) 5 mg tablet Take 1 tablet by mouth every afternoon. carvedilol (COREG) 12.5 mg tablet Take 1 tablet by mouth every 12 hours. ergocalciferol 50,000 unit capsule (VITAMIN D2, DRISDOL) 1 (ONE) CAPSULE EVERY WEEK losartan (COZAAR) 100 mg tablet Take 1 tablet by mouth every afternoon. XIFAXAN 550 mg tablet 550 MG ORALLY TWICE A DAY pantoprazole DR (PROTONIX) 20 mg tablet Take 1 tablet by mouth every 12 hours. sildenafil (VIAGRA) 100 mg tablet 1 (ONE) TABLET 1 HOUR BEFORE DESIRED INTERCOURSE. FAMILY HISTORY Problem Relation Age of Onset Breast Cancer Mother Cancer Maternal Grandmother smoked/alcohol usage Cancer Maternal Grandfather smoked/alcohol usage Colon Cancer No Family History Pancreatic Cancer No Family History Employer And Job Title: None on file Years Of Education Completed: Not specified Marital Status: Social History Tobacco Use Smoking status: Never Smokeless tobacco: Current Types: Chew Tobacco comments: Chewing tobacco 30 years, daily use Substance Use Topics Alcohol use: Yes Alcohol/week: 4.0 standard drinks of alcohol Types: 4 Cans of beer per week Comment: Has cut back from 12 pk daily in the last 3/4 weeks, as of 08/18/23 Drug use: Never Review of Systems: Review of Systems Gastrointestinal: Positive for diarrhea. All other systems reviewed and are negative. Are you taking any blood thinners? No Physical Examination: BP 138/84 Pulse 89 Ht 5' 9 (1.75m) Wt 220 lb 9.6 oz (100.1kg) BMI 32.56 kg/(m2). Physical Exam HENT: Head: Normocephalic. Abdominal: General: There is no distension. Tenderness: There is no abdominal tenderness. Neurological: Mental Status: He is alert. ASSESSMENT: 1. Alcoholic hepatitis - With possible cirrhosis. - Discussed the need to stop EtOH and repeating labs and imaging to see if F4 -> F3/2. - CBC + DIFF; Future - COMP METABOLIC PANEL; Future - PROTHROMBIN TIME/PT; Future 2. Chronic diarrhea - DDX maldigestion, malabsorption, infalmmatory diarrhea. - Will start workup. - He will follow up in [place], but will think about following up at [facility] at [place]. - C. DIFFICILE PCR - CALPROT (more content not included)... [facility] History of Present illness Narrative 08-18-2023 Corina Doe MD - 08/18/2023 4:06 PM EST Note Date & Type Note Facility 08-18-2023 History of Presen t illness Narrative CHIEF COMPLAINT: Patient presents with: Liver Disease: Cirrhosis stage 4, full workup, [place] [facility] Johnathon Bhandari is a 58 year old male who presents for Liver Disease (Cirrhosis stage 4, full workup, [place] [facility] HPI 58 YOF with alcoholic hepatitis and likeley cirrhosis MELD 3.0 11. Per previous notes He drinks 12 beers per day, not interested in quitting or cutting back . Liver elastography in Oct 2022 with 19 kPa. (F4) Comprehensive workup done in [place]. EtOH use disorder. Associated with diarrhea when he drinks. For second opinion. He knows that he needs to get help to stop drinking. AST and ALT x2-3 ULN. EGD and colonoscopy April 2023 ([facility]) Impression: - Non-severe reflux esophagitis. - Portal hypertensive gastropathy. Biopsied. - Multiple non-bleeding duodenal ulcers with no stigmata of bleeding. - Non-bleeding internal hemorrhoids. - Two 1 to 2 mm polyps at the splenic flexure and in the ascending colon, removed with a hot snare. Resected and retrieved. - Diverticulosis in the entire examined colon. Recommendation: - Discharge patient to home. - Resume previous diet. Path A. Gastric body, biopsy: Mild gastritis. See microscopic description and comment. B. Splenic flexure polyp, polypectomy: Tubular adenoma. C. Ascending colon polyp, polypectomy: Fragments of tubular adenoma. CTAP April 2023 LOWER THORAX: Unremarkable. Lung bases are clear. No cardiomegaly. No significant pericardial effusion. ABDOMEN: LIVER: Unremarkable. Homogeneous. No focal mass. GALLBLADDER AND BILE DUCTS: Unremarkable. No calcified gallstones. No gallbladder distention or wall edema. No intra- or extrahepatic biliary ductal dilation. PANCREAS: Unremarkable. No focal cystic or solid mass. Record Review: [facility] / Outside records reviewed. PAST MEDICAL HISTORY Diagnosis Date Cirrhosis with alcoholism (HCC) Essential hypertension Mixed hyperlipidemia Neck nodule Nicotine dependence Wears glasses PAST SURGICAL HISTORY Procedure Laterality Date COLONOSCOPY SCREENING 05/02/2023 2 tubular adenomas, internal hemorrhoids, diverticulosis throughout colon EGD W/O BRSH SPEC VARICIES INJ 05/02/2023 severe portal hypertenive gastropathy in entire examined stomach, reflux esophagitis HEMORRHOIDECTOMY HERNIA REPAIR HX LIVER BIOPSY 02/25/2023 results consistent with cirrhosis, [facility] LIVER ELASTOGRAPHY 10/12/2022 F 3-4, [facility] REPAIR ROTATOR CUFF,ACUTE Right Allergies: ALLERGIES Not on File Medications: amLODIPine (NORVASC) 5 mg tablet Take 1 tablet by mouth every afternoon. carvedilol (COREG) 12.5 mg tablet Take 1 tablet by mouth every 12 hours. ergocalciferol 50,000 unit capsule (VITAMIN D2, DRISDOL) 1 (ONE) CAPSULE EVERY WEEK losartan (COZAAR) 100 mg tablet Take 1 tablet by mouth every afternoon. XIFAXAN 550 mg tablet 550 MG ORALLY TWICE A DAY pantoprazole DR (PROTONIX) 20 mg tablet Take 1 tablet by mouth every 12 hours. sildenafil (VIAGRA) 100 mg tablet 1 (ONE) TABLET 1 HOUR BEFORE DESIRED INTERCOURSE. FAMILY HISTORY Problem Relation Age of Onset Breast Cancer Mother Cancer Maternal Grandmother smoked/alcohol usage Cancer Maternal Grandfather smoked/alcohol usage Colon Cancer No Family History Pancreatic Cancer No Family History Employer And Job Title: None on file Years Of Education Completed: Not specified Marital Status: Social History Tobacco Use Smoking status: Never Smokeless tobacco: Current Types: Chew Tobacco comments: Chewing tobacco 30 years, daily use Substance Use Topics Alcohol use: Yes Alcohol/week: 4.0 standard drinks of alcohol Types: 4 Cans of beer per week Comment: Has cut back from 12 pk daily in the last 3/4 weeks, as of 08/18/23 Drug use: Never Review of Systems: Review of Systems Gastrointestinal: Positive for diarrhea. All other systems reviewed and are negative. Are you taking any blood thinners? No Physical Examination: BP 138/84 Pulse 89 Ht 5' 9 (1.75m) Wt 220 lb 9.6 oz (100.1kg) BMI 32.56 kg/(m^2). Physical Exam HENT: Head: Normocephalic. Abdominal: General: There is no distension. Tenderness: There is no abdominal tenderness. Neurological: Mental Status: He is alert. ASSESSMENT: 1. Alcoholic hepatitis - With possible cirrhosis. - Discussed the need to stop EtOH and repeating labs and imaging to see if F4 -> F3/2. - CBC + DIFF; Future - COMP METABOLIC PANEL; Future - PROTHROMBIN TIME/PT; Future 2. Chronic diarrhea - DDX maldigestion, malabsorption, infalmmatory diarrhea. - Will start workup. - He will follow up in [place], but will think about following up at [facility] at [place]. - C. DIFFICILE PCR - CALPROTECTIN,FECAL - CELIAC SCREEN WITH REFLEX; Future - C-REACTIVE PROTEIN (CRP); Future - ENTERIC BACTERIAL PANEL BY PCR - FAT, FECAL QUAL - PANC ELASTASE, FECAL - POTASSIUM STOOL - SODIUM, STOOL - TSH BLD; Future RTC PRN Corina Doe MD DATE: 08/18/23 TIME: 4:08 PM documented in this encounter [facility] Evaluation note Note Date & Type Note Facility documented in this encounter [facility] Summary Purpose Family History No Family History Records Found Advance Directives No Advanced Directives Records Found Additional Source Comments Source Comments (unrecognize d section and content) In the event this informatio n is protected by the Federal Confidentiality of Alcohol and Drug Abuse Patient Records regulations: The Federal rules restrict any use of the information to criminally investigate or prosecute any alcohol or drug abuse patient.[facility] Reason for Visit (unrecogniz ed section and content) Care Teams (unrecognized sec tion and content) (unrecognized sect ion and content) No Status Records Found INFORMATION SOURCE (unrecogn ized section and content) FOR RECORDS PERTAINING TO PATIENTS WHO ARE OR HAVE BEEN ENROLLED IN A CHEMICAL DEPENDENCY/SUBSTANCEABUSE PROGRAM, SOME INFORMATION MAY BE OMITTED. This clinical summary was aggregated from multiple sources. Caution should be exercised in using it in the provision of clinical care. This summary normalizes information from multiple sources, and as a consequence, information in this document may materially change the coding, format and clinical context of patient data. In addition, data may be omitted in some cases. CLINICAL DECISIONS SHOULD BE BASED ON THE PRIMARY CLINICAL RECORDS. [employer] [facility]. provides no warranty or guarantee of the accuracy or completeness of information in this document.
[2023-10-24 08:39] LABS: Absolute Lymphocyte Count 1.67 X10^3/uL (0.83-4.51); Absolute Neutrophil Count 3.7 X10^3/uL (2.0-7.7); Basophil# 0.07 X10^3/uL; Basophil% 1.1 % (0-1); Eosinophil# 0.16 X10^3/uL; Eosinophils% 2.5 % (0-5); Hematocrit 41.6 % (40-54); Hemoglobin 13.9 g/dL (13.0-16.5); Lymphocyte # 1.67 X10^3/ul (0.83-4.51); Lymphocyte % 26.3 % (19-41); Mean Corp Hgb Conc 33.4 g/dL (32-36); Mean Corpuscular Hgb 33.9 pg (27.0-32.0); Mean Corpuscular Volume 101.5 fL (80-94); Mean Platelet Vol. 9.4 fl (6.2-12.0); Monocyte# 0.68 X10^3/uL; Monocyte% 10.7 % (0-10); NRBC Flagged by Analyzer 0 % (0-5); Neutrophil # 3.74 X10^3/uL (2.7-7.7); Neutrophil % 59.1 % (47-70); Platelet Count 124 K/mm3 (150-450); RBC Distribution Width CV 11.7 % (11.6-14.6); RBC Distribution Width SD 43.8 fl (35.1-43.9); White Blood Count 6.3 K/mm3 (4.4-11.0)
[2023-10-24 08:50] LABS: International Normalized Ratio 1.2; Prothrombin Time (Protime)PT. 15.2 SECONDS (11.7-14.9)
[2023-10-24 13:02] LABS: ALB/GLOB Ratio 0.9 RATIO (0.9-2.4); AST(SGOT) 65 U/L (15-37); Alanine Aminotransfer ALT/SGPT 84 U/L (16-61); Albumin, Serum 3.8 g/dL (3.2-5.0); Alkaline Phosphatase 105 U/L (45-117); Anion Gap 9 (5-15); BUN 11 mg/dL (7-18); BUN/Creat Ratio 10.8 RATIO (10-20); CRP < 2.90 mg/L (0.0-3.0); Calcium,Total 9.4 mg/dL (8.5-10.1); Chloride 107 mmol/L (98-107); Creatinine, Serum 1.02 mg/dL (0.70-1.30); EST Glomerular Filtration Rate 79 mL/min (>60); Est Glom Filt Rate - Afr Amer 96 mL/min (>60); Globulin 4.2 g/dL (2.2-4.2); Glucose 122 mg/dL (74-106); Potassium 3.9 mmol/L (3.5-5.1); Sodium Level 139 mmol/L (136-145)
[2023-10-25 04:08] LABS: AFP, Tumor Marker 5.2 ng/mL (0.0-8.4)
[2023-10-25 13:07] LABS: ANTINUCLEAR ANTIBODIES DIRECT Negative (Negative)
== END | disposition home or self-care (01) ==
LOC: LAB 08:04
PROVIDERS: PCP Family Medicine; Referring Provider Internal Medicine; Visit Provider Internal Medicine
DX: K70.30 Alcoholic cirrhosis of liver without ascites (principal)
CPT/HCPCS: 36415; 80053; 82105; 82140; 85025; 85610; 86038; 86140; 86225; 86235

== ENCOUNTER → 2024-02-13 | Outpatient (CLI) | payer OTHER, SELFPAY ==
[2024-02-13 11:13] LABS: Absolute Lymphocyte Count 2.23 X10^3/uL (0.83-4.51); Absolute Neutrophil Count 3.2 X10^3/uL (2.0-7.7); Basophil# 0.04 X10^3/uL; Basophil% 0.6 % (0-1); Eosinophil# 0.15 X10^3/uL; Eosinophils% 2.3 % (0-5); Hematocrit 40.7 % (40-54); Hemoglobin 13.6 g/dL (13.0-16.5); Lymphocyte # 2.23 X10^3/ul (0.83-4.51); Lymphocyte % 34.4 % (19-41); Mean Corp Hgb Conc 33.4 g/dL (32-36); Mean Corpuscular Volume 101.8 fL (80-94); Mean Platelet Vol. 9.7 fl (6.2-12.0); Monocyte# 0.86 X10^3/uL; Monocyte% 13.3 % (0-10); NRBC Flagged by Analyzer 0 % (0-5); Neutrophil % 49.2 % (47-70); Platelet Count 123 K/mm3 (150-450); RBC Distribution Width CV 12.4 % (11.6-14.6); White Blood Count 6.5 K/mm3 (4.4-11.0)
[2024-02-13 11:24] LABS: International Normalized Ratio 1.3; Prothrombin Time (Protime)PT. 15.8 SECONDS (11.7-14.9)
[2024-02-13 11:34] LABS: Hemoglobin A1c 4.6 % (3.8-5.6)
[2024-02-13 11:58] LABS: Vitamin B12 488 pg/mL (211-911)
[2024-02-13 12:37] LABS: ALB/GLOB Ratio 0.9 RATIO (0.9-2.4); AST(SGOT) 64 U/L (15-37); Alanine Aminotransfer ALT/SGPT 64 U/L (16-61); Albumin, Serum 3.8 g/dL (3.2-5.0); Alkaline Phosphatase 93 U/L (45-117); Anion Gap 6 (5-15); BUN 16 mg/dL (7-18); BUN/Creat Ratio 15.4 RATIO (10-20); CRP < 2.90 mg/L (0.0-3.0); Calcium,Total 9.5 mg/dL (8.5-10.1); Chloride 103 mmol/L (98-107); Cholesterol 134 mg/dL (200); Creatinine, Serum 1.04 mg/dL (0.70-1.30); EST Glomerular Filtration Rate 77 mL/min (>60); Est Glom Filt Rate - Afr Amer 93 mL/min (>60); Ferritin 156 ng/mL (26-388); GGTP 585 U/L (15-85); Globulin 4.4 g/dL (2.2-4.2); Glucose 106 mg/dL (74-106); High Density Lipoprotein 57 mg/dL; Iron 121 ug/dL (65-175); Iron Binding Capacity,Total 431 ug/dL (250-450); Magnesium 2.5 mg/dL (1.6-2.6); PERCENT IRON SATURATION 28.1 % (15.0-55.0); Phosphorus 2.3 mg/dL (2.5-4.9); Potassium 3.8 mmol/L (3.5-5.1); Protein, Total 8.2 g/dL (6.4-8.2); Sodium Level 133 mmol/L (136-145); Thyroid Stim Hormone (TSH) 1.41 uIU/mL (0.358-3.74); Triglycerides 162 mg/dL; Very Low Density Lipoprotein 32 mg/dL (5-40)
[2024-02-16 04:07] LABS: AFP, Tumor Marker 7.6 ng/mL (0.0-8.4); Vitamin B1, Thiamine 114.8 nmol/L (66.5-200.0)
== END | disposition home or self-care (01) ==
LOC: LAB 10:29
PROVIDERS: PCP Family Medicine; Referring Provider Internal Medicine; Visit Provider Internal Medicine
DX: E78.1 Pure hyperglyceridemia (principal); K70.30 Alcoholic cirrhosis of liver without ascites
CPT/HCPCS: 80053; 80061; 82105; 82607; 82728; 82746; 82977; 83036; 83540; 83550; 83735; 84100; 84425; 84443; 85025; 85610; 86140

== ENCOUNTER → 2024-03-27 | Outpatient (CLI) | payer OTHER, SELFPAY ==
--- NOTE | 2024-03-27 07:34 | US_ITS ---
STUDY: ABDOMINAL ULTRASOUND - RIGHT UPPER QUADRANT; ELASTOGRAPHY REASON FOR VISIT: Male, 59 years old. Alcoholic sclerosis. TECHNIQUE: Ultrasound evaluation of the right upper quadrant was performed with real-time and static spencer-scale imaging. Point quantification shear wave elastography was performed ([employer]). TECHNICAL QUALITY: Adequate. COMPARISON: Comparison is made with prior study August 19, 2023. FINDINGS: Liver: The liver is enlarged and measures 21.1 cm. There is increased echogenicity consistent with fatty infiltration. The bile ducts are within normal limits. There is hepatic color flow. The direction of portal flow is hepatopetal. There is no demonstrated mass lesion. Median liver stiffness measured 14.3 kPa. Gallbladder: Normal distended gallbladder. The gallbladder wall measures 1.8 mm. There is a negative sonographic Prasad''s sign. There is no pericholecystic fluid. There are no gallstones. Common Bile Duct (C.B.D.): The common bile duct measures 7.9 mm. Pancreas: There is normal echogenicity of the visualized pancreas. There is no demonstrated pancreatic mass or cyst. Right Kidney: Normal size of the right kidney. The right kidney measures 11.4 cm x 6.3 cm x 6.7 cm. Normal renal cortex. The right cortex measures 1.5 cm. There is no demonstrated renal mass or cyst. There is no right hydronephrosis. US/ABD Limited w/ Elastography IMPRESSION: 1. Liver stiffness measures 14.3 kPa compatible with F3-F4 (Moderate to severe liver fibrosis) Metavir score. Electronically Signed: Lj Brown MD at 13:29 EDT ,
== END | disposition home or self-care (01) ==
LOC: US 07:28
PROVIDERS: PCP Family Medicine; Referring Provider Internal Medicine; Visit Provider Internal Medicine
DX: K70.30 Alcoholic cirrhosis of liver without ascites (principal)
CPT/HCPCS: 76705; 76981

== ENCOUNTER → 2024-08-27 | Outpatient (CLI) | payer OTHER, SELFPAY ==
--- NOTE | 2024-08-27 07:47 | ECHOD_ITS ---
Reason For Study: Edema Procedure This was a 2D Doppler, Color Flow transthoracic echocardiogram. Exam performed in department. Left Ventricle Normal LV size. Left ventricular systolic function is normal. The left ventricular ejection fraction is 65 %. No regional wall motion abnormalities noted. Right Ventricle Normal RV size. Normal systolic function. Atria Normal left atrium. Normal right atrium. Mitral Valve Normal mitral valve. Tricuspid Valve Normal tricuspid valve. Aortic Valve Normal aortic valve. Pulmonic Valve Normal pulmonic valve. Great Vessels Normal aortic root. The pulmonary artery is normal size. Inferior vena cava collapse with respiration. Pericardium/Pleural No pericardial effusion. MMode/2D Measurements & Calculations LVIDd: 5.2 cm IVSd: 1.0 cm Ao root diam: 3.7 cm LVIDs: 3.3 cm LVPWd: 0.98 cm RVDd: 3.9 cm FS: 35.7 % LAV(MOD-bp): 62.8 ml LVAd ap4: 33.4 cm2 SV(MOD-sp4): 68.1 ml LAV(MOD-bp) Indexed: 28.9 ml/m2 LVLd ap4: 8.0 cm SI(MOD-sp4): 31.4 ml/m2 LAV(MOD-sp2): 60.4 ml EDV(MOD-sp4): 111.0 ml LAV(MOD-sp4): 61.5 ml EDV(sp4-el): 118.2 ml LVAs ap4: 19.0 cm2 LVLs ap4: 7.1 cm ESV(MOD-sp4): 42.9 ml ESV(sp4-el): 42.9 ml EF(MOD-sp4): 61.4 % EF(sp4-el): 63.7 % SV(sp4-el): 75.3 ml LA A4 area: 21.1 cm2 LA dimension(2D): 4.3 cm RA A4 area: 17.7 cm2 Time Measurements MV dec time: 0.25 sec Doppler Measurements & Calculations MV E max nish: 78.7 cm/sec Lat Peak E' Nish: 11.7 cm/sec Med Peak E' Nish: 8.5 cm/sec MV A max nish: 86.7 cm/sec E/E' lat: 6.7 E/E' med: 9.3 MV E/A: 0.91 MV V2 max: 107.1 cm/sec MV P1/2t max nish: 88.0 cm/sec Ao V2 max: 138.4 cm/sec MV max P.6 mmHg MV P1/2t: 83.0 msec Ao max P.7 mmHg MV V2 mean: 59.7 cm/sec Ao V2 mean: 97.4 cm/sec MV mean P.7 mmHg MV dec slope: 310.7 cm/sec2 Ao mean P.3 mmHg MV V2 VTI: 27.1 cm MVA(P1/2t): 2.7 cm2 Ao V2 VTI: 33.3 cm AV (velocity ratio): 0.81 LV V1 max: 115.4 cm/sec PA V2 max: 113.6 cm/sec LV V1 max P.3 mmHg PI dec slope: 135.1 cm/sec2 LV V1 mean P.6 mmHg LV V1 mean: 75.9 cm/sec LV V1 VTI: 26.9 cm ECHO/Echo Complete Interpretation Summary Normal LV size. Left ventricular systolic function is normal. The left ventricular ejection fraction is 65 %. Structurally normal valves. Ordering Physician: Miladys Knapp Referring Physician: Miladys Knapp Performed By: Steven Skinner RCS
--- NOTE | 2024-08-27 07:47 | US_ITS ---
INDICATION: acsites EXAMINATION: Ultrasound US Abdomen Limited (quadrant) TECHNIQUE: Lynch scale and color doppler imaging was performed of the 4 abdominal quadrants. COMPARISON: October 12, 2022 FINDINGS: No free fluid is visualized. No discrete solid or cystic lesions are identified. US/Abdomen Limited IMPRESSION: No ascites identified. Electronically Signed: Carmenza Fox MD at 8:03 EST ,
[2024-08-27 09:33] LABS: Absolute Lymphocyte Count 1.95 X10^3/uL (0.83-4.51); Absolute Neutrophil Count 3.7 X10^3/uL (2.0-7.7); Basophil# 0.07 X10^3/uL; Basophil% 1.1 % (0-1); Eosinophil# 0.14 X10^3/uL; Eosinophils% 2.1 % (0-5); Hematocrit 42.9 % (40-54); Hemoglobin 14.4 g/dL (13.0-16.5); Lymphocyte # 1.95 X10^3/ul (0.83-4.51); Lymphocyte % 29.3 % (19-41); Mean Corp Hgb Conc 33.6 g/dL (32-36); Mean Corpuscular Hgb 32.3 pg (27.0-32.0); Mean Corpuscular Volume 96.2 fL (80-94); Mean Platelet Vol. 9.6 fl (6.2-12.0); Monocyte# 0.73 X10^3/uL; NRBC Flagged by Analyzer 0 % (0-5); Neutrophil # 3.73 X10^3/uL (2.7-7.7); Platelet Count 128 K/mm3 (150-450); RBC Distribution Width CV 13.7 % (11.6-14.6); RBC Distribution Width SD 48.9 fl (35.1-43.9); Red Blood Count 4.46 M/mm3 (4.6-6.2); White Blood Count 6.7 K/mm3 (4.4-11.0)
[2024-08-27 09:44] LABS: Color, Urine Straw (Yellow); Glucose, Dipstick Normal (Normal); Ketone-Dipstick Negative (Negative); Leukocyte Esterase-Dipstick Negative /ul (Negative); Nitrite-Dipstick Negative (Negative); Occult Blood-Urine 25 /ul (Negative); Protein-Dipstick Negative (Negative); Specific Gravity, Urine 1.015 (1.002-1.030); Urine Bilirubin Dipstick Negative (Negative); Urine Clarity Clear (Clear); Urine Urobilinogen Normal (Normal)
[2024-08-27 09:45] LABS: International Normalized Ratio 1.2; Prothrombin Time (Protime)PT. 14.8 SECONDS (11.7-14.9)
[2024-08-27 09:53] LABS: Erythrocyte Sedimentation Rate 21 mm/hr (0-20)
[2024-08-27 10:10] LABS: Vitamin B12 491 pg/mL (211-911)
[2024-08-27 10:15] LABS: Hemoglobin A1c 5.2 % (3.8-5.6)
[2024-08-27 10:31] LABS: ALB/GLOB Ratio 0.8 RATIO (0.9-2.4); AST(SGOT) 82 U/L (15-37); Alanine Aminotransfer ALT/SGPT 77 U/L (16-61); Albumin, Serum 3.8 g/dL (3.2-5.0); Alkaline Phosphatase 121 U/L (45-117); Anion Gap 6 (5-15); BUN 15 mg/dL (7-18); BUN/Creat Ratio 14.2 RATIO (10-20); CRP < 2.90 mg/L (0.0-3.0); Calcium,Total 9.4 mg/dL (8.5-10.1); Chloride 104 mmol/L (98-107); Cholesterol 159 mg/dL (200); Creatinine, Serum 1.06 mg/dL (0.70-1.30); EST Glomerular Filtration Rate 75 mL/min (>60); Est Glom Filt Rate - Afr Amer 91 mL/min (>60); Ferritin 180 ng/mL (26-388); Globulin 4.5 g/dL (2.2-4.2); Glucose 117 mg/dL (74-106); High Density Lipoprotein 63 mg/dL; Iron 264 ug/dL (65-175); Iron Binding Capacity,Total 410 ug/dL (250-450); Magnesium 1.9 mg/dL (1.6-2.6); PERCENT IRON SATURATION 64.4 % (15.0-55.0); Phosphorus 2.8 mg/dL (2.5-4.9); Potassium 4.2 mmol/L (3.5-5.1); Protein, Total 8.3 g/dL (6.4-8.2); Sodium Level 138 mmol/L (136-145); Triglycerides 164 mg/dL; Very Low Density Lipoprotein 33 mg/dL (5-40)
[2024-08-30 14:10] LABS: AFP, Tumor Marker 6.9 ng/mL (0.0-8.4); GGTP 510 IU/L (0-65); Vitamin B1, Thiamine 125.9 nmol/L (66.5-200.0)
== END | disposition home or self-care (01) ==
PROVIDERS: PCP Family Medicine; Referring Provider Student in an Organized Health Care Education/Training Program; Visit Provider Student in an Organized Health Care Education/Training Program
DX: K70.31 Alcoholic cirrhosis of liver with ascites (principal)
CPT/HCPCS: 36415; 76705; 80053; 80061; 81002; 82105; 82607; 82728; 82746; 82977; 83036; 83540; 83550; 83735; 84100; 84425; 84443; 85025; 85610; 85652; 86140; 87086; 93306

== ENCOUNTER 2025-04-01 08:33 | Outpatient (CLI) | payer OTHER, SELFPAY ==
[2025-04-01 10:28] LABS: Hematocrit 41.7 % (40-54); Hemoglobin 14.1 g/dL (13.0-16.5); Mean Corp Hgb Conc 33.8 g/dL (32-36); Mean Corpuscular Hgb 33.6 pg (27.0-32.0); Mean Corpuscular Volume 99.3 fL (80-94); Mean Platelet Vol. 9.9 fl (6.2-12.0); Platelet Count 133 K/mm3 (150-450); RBC Distribution Width CV 13.2 % (11.6-14.6); RBC Distribution Width SD 48.2 fl (35.1-43.9); White Blood Count 8.2 K/mm3 (4.4-11.0)
[2025-04-01 11:11] LABS: Uric Acid 6.9 mg/dL (3.5-7.2)
[2025-04-01 11:13] LABS: PSA,Total - Annual Screen 1.04 ng/mL (0.02-4.00); Vitamin D,25 Hydroxy 41.4 ng/mL (30-100)
[2025-04-01 11:13] LABS: ALB/GLOB Ratio 1.2 RATIO (0.9-2.4); AST(SGOT) 78 U/L (<=37); Alanine Aminotransfer ALT/SGPT 79 U/L (<=46); Albumin, Serum 4.2 g/dL (3.4-4.8); Alkaline Phosphatase 124 U/L (40-129); Anion Gap 13 (5-15); BUN 12 mg/dL (4-19); BUN/Creat Ratio 12.6 RATIO (10-20); Calcium,Total 9.6 mg/dL (7.6-11.0); Carbon Dioxide 21.2 mmol/L (21.0-32.0); Chloride 106 mmol/L (98-108); Creatinine, Serum 0.99 mg/dL (0.70-1.20); EST Glomerular Filtration Rate 87 (>60); Ferritin 193 ng/mL (37-417); Globulin 3.5 g/dL (2.2-4.2); Glucose 114 mg/dL (70-99); Protein, Total 7.7 g/dL (5.9-8.4); Sodium Level 140 mmol/L (133-145); Total Bilirubin 0.79 mg/dL (0.00-1.30); Vitamin B12 526 pg/mL (180-914)
[2025-04-02 04:07] LABS: GGTP 490 IU/L (0-65)
== END 2025-04-01 23:59 | disposition home or self-care (01) ==
LOC: MFPLAB 08:33
PROVIDERS: PCP Family Medicine; Visit Provider Family Medicine
DX: M10.9 Gout, unspecified (principal); Z12.5 Encounter for screening for malignant neoplasm of prostate; F10.10 Alcohol abuse, uncomplicated; E55.9 Vitamin D deficiency, unspecified
CPT/HCPCS: 36415; 80053; 82306; 82607; 82728; 82977; 84153; 84550; 85027; G0103

== ENCOUNTER → 2025-04-25 | Outpatient (CLI) | payer OTHER, SELFPAY ==
--- NOTE | 2025-04-25 15:06 | RAD_ITS ---
EXAM: XR Lumbosacral Spine Complete with Flexion/Extension, 6 or More Views CLINICAL INDICATION: DORSALGIA TECHNIQUE: Lateral, frontal, oblique and lateral flexion/extension views of the lumbar spine and sacrum. COMPARISON: No relevant prior studies available. FINDINGS: VERTEBRAE: Anterior spondylolisthesis of L4 over L5 by 5 mm, which reduces to 1 mm with extension and increases to 8 mm on flexion. Multilevel endplate degenerative changes and disc degeneration visualized spine, most prominent at L5-S1. Moderate facet arthropathy of L3-S1. No acute fracture. SACRUM/COCCYX: Unremarkable as visualized. No acute fracture. DISC SPACES: See above. SOFT TISSUES: Unremarkable. RAD/L/S Spine w Bend Min 6 Vw IMPRESSION: 1. Anterior spondylolisthesis of L4 over L5 by 5 mm, which reduces to 1 mm wit h extension and increases to 8 mm on flexion. 2. Degenerative changes as above. Reading Location: [facility]
== END | disposition home or self-care (01) ==
LOC: MTRAD 15:05
PROVIDERS: PCP Family Medicine; Referring Provider Family Medicine; Visit Provider Family Medicine
DX: M54.50 Low back pain, unspecified (principal)
CPT/HCPCS: 72114

== ENCOUNTER 2025-05-16 08:30 | Outpatient (RCR) | payer OTHER, SELFPAY ==
--- NOTE | 2025-05-10 08:46 | HP.PTEVAL_ITS ---
Patient's Visit Information Visit Information Visit Information: MARIELY ELIZABETH is a 60 year old M referred to Physical Therapy by Dr. Brandon Chen MD with a diagnosis of LBP. Date of Evaluation: 05/10/25 Physical Therapist: Toni Cowart, DPT, OCS, CSCS Visit Plan Frequency: 2x /Week Duration: 4-6 Weeks Plan: 2x/week for 3-6 weeks IEE HEP: trunk rotation, PPU, pelvic tilt all 10-20x 2x/day, more improtantly, sit only with towel roll and minimize sitting in favor of walking and hook lying or prone lying t0o relax. treeat with instruction in and progression of pelvic and lumbar ROM, mat based core strength and HS, quad stretches to HEP with pics. May use TENs and ice if needed. Subjective Subjective: R sided scaitic pain. Preseent for 2-3 weeks starting in butt. H/o back pain but not this bad. Hurts to sit and has to stop after 15 min and walk around when driving. Walking is no problem. Sleep is not a problem. Morning is OK. No numbness or tingling then says knee down and has to wait when stands up for curculation. 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 Hobbies: farming and woodworking and can do them, careful with lifting heavier items. Basic aDLs: sits dwon to get shoes on b/c cannot stand on R leg Pain R leg and back.: Pain Intensity (Out of 10): 4 Pain Intensity Range: 0 and 7 Comment: walking is OK, sitting is worse. Objective Objective: R antalgia in gait is obvious today adn worse after sitting, I gait. Trasnfer bed and chair I, but slow. Very stiff spine, pelvis and walking. Minimal peelvic motion supine. Posture is lordotic lumbar and kyphotic thoracic region with a forward head. Lumbar AROM ext is mod limited and feels good, Flexion is poor and hesitant, SB is WFL. repeated ext feeels good, NE on motion. reflexes 1/3 patella and achilles B Sensation LE WNL to gross light touch B strength LE knees and ankles 5/5, hip flexion abd, ext 3+, weakness evident in core but painful to rotate (especially R)and trnsition out of chair. No myotomal abnormalities in LE. + R SLR and slump test. HS max tight at -40 90/90 test, quads mod tight with hip pain R side on femoral neerve stretch Balance/Special Test Scores Oswestry Low Back Score: 13 Goals Goal 1:: I appropriate HEP to limit future problems with back(strength, pelvic and l/s ROM, leg streetches) Goal Time Frame: 4-6 Weeks Goal 2:: Pain in LB 80% better at 1/10 at worst and able to sit 20 minutes without increased pain Goal Time Frame: 4-6 Weeks Goal 3:: walk without antalgia in R LE Goal Time Frame: 4-6 Weeks Goal 4:: oswestry score 3 or better Goal Time Frame: 4-6 Weeks Goal 5:: drive 30 minutes without having to stop Goal Time Frame: 4-6 Weeks Rehabilitation Potential Physical Therapy Diagnosis: instability in spine causing pain and difficult funciton. Rehabilitation Potential: Fair Anticipated Interventions Patient/Client Instruction: Educate patient on: Condition and Plan of Care For the Purpose of:: To decrease pain, To increase ROM, To improve nutrient delivery to tissue, To improve muscle performance and motor function, To increase tolerance to activity/condition/position and To improve gait and locomotor functions Therapeutic Exercise to Include: Strength training, Postural training, Flexibilty training, Passive ROM, Active ROM and Dynamic Lumbar Stabilization For the Purpose of:: To decrease pain, To increase ROM, To improve nutrient delivery to tissue, To improve muscle performance and motor function and To increase tolerance to activity/condition/position Manual Therapy Techniques to Include: Mobilization, Passive ROM and Soft tissue mobilization For the Purpose of:: To decrease pain, To increase ROM, To improve nutrient delivery to tissue, To improve muscle performance and motor function, To increase tolerance to activity/condition/position, To improve ability of physical actions for home/community/work/leisure and To improve gait and locomotor functions Cryotherapy (ice pack, ice massage): Yes For the Purpose of:: To decrease pain and To decrease swelling/inflammation Text: Thank you for the opportunity to evaluate your patient. For Medicare and Medicare HMO plans, please review the plan of care and approve it. It will need to be FAXED BACK to us at [phone] for Medicare purposes. For Medicare only, by signing this I certify the plan of care. Please let me know if there are questions or concerns regarding this plan of care. Physician Signature: Date:
--- NOTE | 2025-08-06 10:23 | HP.PT.NRP ---
Patient Information Patient Information: MARIELY ELIZABETH was seen in my office for initial evaluation on 05/10/25. The following Plan of Care was established for this patient: POC Established Initial Frequency: 2x /Week Initial Duration: 4-6 Weeks Anticipated Interventions Patient/Client Instruction: Educate patient on: Condition and Plan of Care For the Purpose of:: To decrease pain, To increase ROM, To improve nutrient delivery to tissue, To improve muscle performance and motor function, To increase tolerance to activity/condition/position and To improve gait and locomotor functions Therapeutic Exercise to Include: Strength training, Postural training, Flexibilty training, Passive ROM, Active ROM and Dynamic Lumbar Stabilization For the Purpose of:: To decrease pain, To increase ROM, To improve nutrient delivery to tissue, To improve muscle performance and motor function and To increase tolerance to activity/condition/position Manual Therapy Techniques to Include: Mobilization, Passive ROM and Soft tissue mobilization For the Purpose of:: To decrease pain, To increase ROM, To improve nutrient delivery to tissue, To improve muscle performance and motor function, To increase tolerance to activity/condition/position, To improve ability of physical actions for home/community/work/leisure and To improve gait and locomotor functions Cryotherapy (ice pack, ice massage): Yes For the Purpose of:: To decrease pain and To decrease swelling/inflammation Last Seen Last Seen: This patient was last seen in our office 05/16/25. Pertinent comments regarding their Physical therapy will appear below: Pt seen 2 visits of POC and then no showed 2x. At this point, it has elizabeth over 2 months and I will disocntinue from my care. At this point I will be discontinuing this patient from physical therapy. I would be happy to see this patient again in the future if found appropriate by the physician. Thank you! Toni Cowart, DPT, OCS, CSCS Balance/Gait/Functional tests Balance/Special Test Scores Oswestry Low Back Score: 13
== END 2025-05-16 19:00 | disposition home or self-care (01) ==
LOC: PT 08:30
PROVIDERS: PCP Family Medicine; Referring Provider Family Medicine; Visit Provider Family Medicine
DX: M54.9 Dorsalgia, unspecified (principal)
CPT/HCPCS: 97110; 97161

== ENCOUNTER 2025-10-01 09:27 | Outpatient (CLI) | payer OTHER, SELFPAY ==
--- OUTSIDE RECORDS SUMMARY | 2025-10-01 09:50 | XMS RPT_ITS | CCD ---
Author Organization [facility] Care Team Providers Care Production Machine Computer Operator Name Role Phone Dr. Serge Chen Primary Care Provider [phone] Dr. Serge Chen Referring Provider Audelia SUPERVISOR FUNCTIONAL TESTING, SUPERVISOR FUNCTIONAL TESTING-C Jaylene Carballo Attending Provider [phone] Friend[address] Pizarro Attending Provider [phone] Pizarro Other Provider [phone] Kayleen Chen MD Primary Care Provider CORINA STOLL Attending Unavailable KAYLEEN CHEN Primary Care UnavailCORINA Conley Referring Unavailable KAYLEEN CHEN Primary Care UnavailDr. Serge Odonnell Primary Care Provider [phone] Dr. Serge Chen Referring Provider FriendDr. Pizarro Attending Provider FriendDr. Pizarro Other Provider [phone] Serge Chen Primary Care Provider [phone] Dr. Serge Chen Referring Provider FriendDr. Pizarro Attending Provider Dr. Chris Costello Attending Provider Dr. Kayleen Chen Primary Care Provider [phone] Dr. Kayleen Chen Referring Provider Dr. Chris Costello Attending Provider [phone] Dr. Kayleen Chen MD Primary Care Provider Dr. Kayleen Chen MD Attending Provider Dr. Kayleen Chen MD Referring Provider Kayleen Chen Primary Care Unavailable Will Lopes Attending Unavailable Kayleen Chen Primary Care Unavailable Lisbeth Wyatt Attending Unavailable Kayleen Chen Referring Unavailable Miladys Knapp Attending Unavailable Miladys Knapp Referring Unavailable Kayleen Chen Primary Care Unavailable Kayleen Chen Primary Care Unavailable Kayleen Chen Attending Unavailable Kayleen Chen Referring Unavailable Kayleen Chen Primary Care Unavailable Kayleen Chen Attending Unavailable Kayleen Chen Referring Unavailable Kayleen Chen Primary Care Unavailable Kayleen Chen Attending Unavailable Medications Current Medications Medication Drug Class(es) Dates Sig (Normalized) Sig (Original) amLODIPine 5 mg oral tablet (11 sources) Dihydropyridine Calcium Channel Francisco Start: 10-21-2017 take 1 tablet by mouth once daily Amlodipine 5 mg tablet Active 5 mg PO daily October 21, 2017 1:00am Comment on above: Take 1 tablet by carlton th every afternoon. carvedilol 12.5 mg oral tablet (13 sources) alpha-Adrenergic Francisco, beta-Adrenergic Francisco Start: 09-03-2024 take 1 tablet by mouth twice daily Carvedilol 12.5 mg tablet Active 12.5 mg PO TWICE A DAY September 03, 2024 9:02am Start: 06-01-2023 take 1 tablet by carlton th every twelve hours carvedilol (COREG) 12.5 mg tablet Take 1 tablet by mouth every 12 hours. 0 06/01/2023 Active Start: 10-21-2017 End: 09-03-2024 take 1 tablet by mouth once daily Carvedilol 12.5 mg tablet Discontinued 12.5 mg PO DAILY October 21, 2017 1:00am September 03, 2024 9:05am Start: 10-21-2017 take 12.5 mg by mout h twice daily Carvedilol Active 12.5 MG PO TWICE A DAY October 21, 2017 12:00am Comment on above: Take 1 tablet by carlton th every 12 hours. cholecalciferol 1.25 mg oral capsule (10 sources) Vitamin D Start: 09-03-20 take 1 capsule by mouth every week Cholecalciferol (Vitamin D3) 1,250 mcg (50,000 unit) capsule Active 1250 ug PO EVERY WEEK September 03, 2024 9:03am Start: 11-09-2022 End: 09-03-2024 take 1 capsule by mouth every month Cholecalciferol (Vitamin D3) 1,250 mcg (50,000 unit) capsule Discontinued 1250 ug PO EVERY MONTH November 09, 2022 1:00am September 03, 2024 9:05am escitalopram 10 mg oral tablet (4 sources) Serotonin Reuptake Inhibitor Start: 09-26-2024 take 2 tablets by mouth once daily Escitalopram Oxalate 10 mg tablet Active 20 mg PO daily September 26, 2024 12:27pm Start: 09-03-2024 End: 09-26-2024 take 1 tablet by mouth once daily Escitalopram Oxalate 10 mg tablet Discontinued 10 mg PO daily September 03, 2024 1:00am September 26, 2024 12:34pm fenofibrate 54 mg oral tablet (6 sources) Peroxisome Proliferator Receptor alpha Agonist Start: 10-24-2023 End: 05-12-2024 take 1 tablet by mouth once daily Fenofibrate 54 mg tablet Active 54 mg PO DAILY 30 6 May 12, 2024 9:56pm icosapent ethyl 1000 mg oral capsule (2 sources) Start: 09-24-2024 Icosapent Ethy l (Vascepa) 1 gram capsule Active 2 g PO TWICE A DAY September 24, 2024 1:00am losartan potassium 100 mg oral tablet (9 sources) Angiotensin 2 Receptor Francisco Start: 11-09-2022 take 1 tablet by mouth once daily Losartan 100 mg tablet Active 100 mg PO DAILY November 09, 2022 1:00am Comment on above: Take 1 tablet by carlton th every afternoon. Epoiskyf-Zwi-Lgiot- Vit K-Lycop 400-20-370 mcg tablet (2 sources) Start: 09-03-2024 Fvsrjiac-Hqd-S olic -Vit K-Lycop 400-20-370 mcg tablet Active 1 {tbl} PO daily September 03, 2024 1:00am pantoprazole 20 mg delayed release oral tablet (20 sources) Proton Pump Inhibitor Start: 06-10-2024 End: 09-03-2024 take 1 tablet by mouth twice daily Pantoprazole 20 mg tablet,delayed release (DR/EC) Active 20 mg PO TWICE A DAY 180 September 03, 2024 9:34am Start: 05-02-2023 End: 06-10-2024 take 1 tablet by mouth every twelve hours Pantoprazole 20 mg tablet,delayed release (/EC) Discontinued 0 .ROUTE .COMPLEX 180 November 28, 2023 1:23pm June 10, 2024 10:41am 20 MG ORALLY EVERY 12 HOURS Comment on above: Take 1 tablet by carlton th every 12 hours. Vit C,Z-Xy-Mixge-Lutein -Zeaxan (Preservision Areds-2) 250-90-40-1 mg capsule (2 sources) Start: 09-03-2024 take 2 capsules by mouth twice daily Vit C,J-Ju-Prbnt-Lutein -Zeaxan (Preservision Areds-2) 250-90-40-1 mg capsule Active 1 {tbl} PO TWICE A DAY September 03, 2024 1:00am Completed/Discontinued Medications Medication Drug Class(es) Dates Sig (Normalized) Sig (Original) atorvastatin 20 mg oral tablet (10 sources) HMG-CoA Reductase Inhibitor Start: 10-21-2017 End: 11-09-2022 take 1 tablet by mouth once daily Atorvastatin 20 mg tablet Discontinued 20 mg PO daily October 21, 2017 1:00am November 09, 2022 2:15pm ergocalciferol 1.25 mg oral capsule (1 source) Provitamin D2 Compound Start: 06-01-2023 ergocalciferol 50,000 unit capsule (VITAMIN D2, DRISDOL) 1 (ONE) CAPSULE EVERY WEEK 0 06/01/2023 Active Comment on above: 1 (ONE) CAPSULE EVER Y WEEK gemfibrozil 600 mg oral tablet (10 sources) Peroxisome Proliferator Receptor alpha Agonist Start: 10-21-2017 End: 11-09-2022 take 1 tablet by mouth twice daily Gemfibrozil 600 mg tablet Discontinued 600 mg PO TWICE A DAY October 21, 2017 1:00am November 09, 2022 2:15pm hydrOXYzine hydrochloride 25 mg oral tablet (8 sources) Antihistamine Start: 11-09-2022 End: 02-07-2023 take 1 tablet by mouth at bedtime Hydroxyzine Hcl 25 mg tablet Discontinued 25 mg PO AT BEDTIME November 09, 2022 1:00am February 07, 2023 2:09pm irbesartan 300 mg oral tablet (10 sources) Angiotensin 2 Receptor Francisco Start: 10-21-2017 End: 11-09-2022 take 1 tablet by mouth once daily Irbesartan 300 mg tablet Discontinued 300 mg PO daily October 21, 2017 1:00am November 09, 2022 2:15pm potassium phosphate 155 mg / sodium phosphate, dibasic 852 mg / sodium phosphate, monobasic 130 mg oral tablet (3 sources) Start: 02-13-2024 End: 02-20-2024 Sod Phos Di, Barnwell-K Phos Barnwell 250 mg tablet Discontinued 1 {tbl} PO TWICE A DAY 14 7 0 February 13, 2024 12:00am February 19, 2024 12:00am February 20, 2024 12:06am rifAXIMin 550 mg oral tablet (20 sources) Rifamycin Antibacterial Start: 03-02-2023 End: 09-03-2024 take 1 tablet by mouth twice daily Rifaximin (Xifaxan) 550 mg tablet Discontinued 550 mg PO TWICE A DAY 60 30 6 May 12, 2024 9:55pm September 03, 2024 9:34am Comment on above: 550 MG ORALLY TWICE A DAY sildenafil 100 mg oral tablet (1 source) Phosphodiesterase 5 Inhibitor Start: 04-23-2023 sildenafil (VIAGRA) 100 mg tablet 1 (ONE) TABLET 1 HOUR BEFORE DESIRED INTERCOURSE. 0 04/23/2023 Active Comment on above: 1 (ONE) TABLET 1 NAMAN R BEFORE DESIRED INTERCOURSE. Problems Active Problems Problem Classification Problem Date Documented Da te Episodic/Chronic Alcohol-related disorders (14 sources) Ascites due to alcoholic hepatitis; Translations: [Alcoholic hepatitis with ascites] Onset: 08-19-2023 08-18-2023 Chronic Disorders of lipid metabolism (7 sources) Hypertriglyceridemia; Translations: [Pure hyperglyceridemia] 10-24-2023 Chronic Gout and other crystal arthropathies (2 sources) Gout, unspecified; Translations: [Gout, unspecified] Onset: 04-05-2025 Chronic Noninfectious gastroenteritis (2 sources) Chronic diarrhea; Translations: [Noninfective gastroenteritis and colitis, unspecified] Onset: 08-19-2023 08-18-2023 Episodic Other gastrointestinal disorders (10 sources) Disorder of colon; Translations: [Disease of intestine, unspecified] 12-09-2017 Episodic Other gastrointestinal disorders (8 sources) Diarrhea; Translations: [Diarrhea, unspecified] 03-02-2023 Episodic Other gastrointestinal disorders (2 sources) Diarrhea, unspecified; Translations: [Diarrhea] 07-15-2023 Episodic Other liver diseases (8 sources) Cirrhosis of liver; Translations: [Unspecified cirrhosis of liver] 03-02-2023 Chronic Other liver diseases (11 sources) Hepatic fibrosis; Translations: [Hepatic fibrosis] 02-07-2023 Chronic Other liver diseases (8 sources) Liver enzymes abnormal; Translations: [Abnormal levels of other serum enzymes] 02-07-2023 Episodic Other liver diseases (3 sources) Abnormal levels of other serum enzymes; Translations: [Other nonspecific abnormal serum enzyme levels] 02-07-2023 Episodic Unclassified (1 source) Low back pain, unspecified; Translations: [Low back pain, unspecified] Onset: 04-30-2025 Past or Other Problems Problem Classification Problem Date Documented Da te Episodic/Chronic Other screening for suspected conditions (not mental disorders or infectious disease) (2 sources) Encounter for screening for malignant neoplasm of prostate; Translations: [Screening for malignant neoplasms of prostate] Onset: 04-05-2025 Episodic Results Test Name Value Interpretation Reference Range Facility Inital Evaluation (1) - PTon 05-10-2025 Inital Evaluation (1) - PT [facility] [address] [place] [address] [address] [place] [address] / REHABILITATION SERVICES INITIAL EVALUATION MR#: [id number] Acct: [id number] Name: MARIELY BHANDARI Rep #: [id number] : 1965 60 From: Toni Cowart DPT, VINITA, CSCS Referring Dr.: Dr. Kayleen Chen MD Status: REG RCR Insurance: [employer] SELF PAY INSURANCE Patient's Visit Information Visit Information Visit Information: MARIELY BHANDARI is a 60 year old M referred to Physical Therapy by Dr. Kayleen Chen MD with a diagnosis of LBP. Date of Evaluation: 05/10/25 Physical Therapist: Toni Cowart DPT, OCS, CSCS Visit Plan Frequency: 2x /Week Duration: 4-6 Weeks Plan: 2x/week for 3-6 weeks IEE HEP: trunk rotation, PPU, pelvic tilt all 10-20x 2x/day, more improtantly, sit only with towel roll and minimize sitting in favor of walking and hook lying or prone lying t0o relax. treeat with instruction in and progression of pelvic and lumbar ROM, mat based core strength and HS, quad stretches to HEP with pics. May use TENs and ice if needed. Subjective Subjective: R sided scaitic pain. Preseent for 2-3 weeks starting in butt. H/o back pain but not this bad. Hurts to sit and has to stop after 15 min and walk around when driving. Walking is no problem. Sleep is not a problem. Morning is OK. No numbness or tingling then says knee down and has to wait when stands up for curculation. 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 Hobbies: farming and woodworking and can do them, careful with lifting heavier items. Basic aDLs: sits dwon to get shoes on b/c cannot stand on R leg Pain R leg and back.: Pain Intensity (Out of 10): 4 Pain Intensity Range: 0 and 7 Comment: walking is OK, sitting is worse. Objective Objective: R antalgia in gait is obvious today adn worse after sitting, I gait. Trasnfer bed and chair I, but slow. Very stiff spine, pelvis and walking. Minimal peelvic motion supine. Posture is lordotic lumbar and kyphotic thoracic region with a forward head. Lumbar AROM ext is mod limited and feels good, Flexion is poor and hesitant, SB is WFL. repeated ext feeels good, NE on motion. reflexes 1/3 patella and achilles B Sensation LE WNL to gross light touch B strength LE knees and ankles 5/5, hip flexion abd, ext 3+, weakness evident in core but painful to rotate (especially R)and trnsition out of chair. No myotomal abnormalities in LE. + R SLR and slump test. HS max tight at -40 90/90 test, quads mod tight with hip pain R side on femoral neerve stretch Balance/Special Test Scores Oswestry Low Back Score: 13 Goals Goal 1:: I appropriate HEP to limit future problems with back(strength, pelvic and l/s ROM, leg streetches) Goal Time Frame: 4-6 Weeks Goal 2:: Pain in LB 80% better at 1/10 at worst and able to sit 20 minutes without increased pain Goal Time Frame: 4-6 Weeks Goal 3:: walk without antalgia in R LE Goal Time Frame: 4-6 Weeks Goal 4:: oswestry score 3 or better Goal Time Frame: 4-6 Weeks Goal 5:: drive 30 minutes without having to stop Goal Time Frame: 4-6 Weeks Rehabilitation Potential Physical Therapy Diagnosis: instability in spine causing pain and difficult funciton. Rehabilitation Potential: Fair Anticipated Interventions Patient/Client Instruction: Educate patient on: Condition and Plan of Care For the Purpose of:: To decrease pain, To increase ROM, To improve nutrient delivery to tissue, To improve muscle performance and motor function, To increase tolerance to activity/condition/posit ion and To improve gait and locomotor functions Therapeutic Exercise to Include: Strength training, Postural training, Flexibilty training, Passive ROM, Active ROM and Dynamic Lumbar Stabilization For the Purpose of:: To decrease pain, To increase ROM, To improve nutrient delivery to tissue, To improve muscle performance and motor function and To increase tolerance to activity/condi tion/position Manual Therapy Techniques to Include: Mobilization, Passive ROM and Soft tissue mobilization For the Purpose of:: To decrease pain, To increase ROM, To improve nutrient delivery to tissue, To improve muscle performance and motor function, To increase tolerance to activity/condition/posit ion, To improve ability of physical actions for home/community/work/leis ure and To improve gait and locomotor functions Cryotherapy (ice pack, ice massage): Yes For the Purpose of:: To decrease pain and To decrease swelling/inflammation Text: Thank you for the opportunity to evaluate your patient. For Medicare and Medicare HMO plans, please review the plan of care and approve it. It will need to be FAXED BACK to us at [phone] for Medicare purposes. For Medicare only, by signing this I certify the plan of care. Please let me know if th (more content not included)... Normal [facility] L/S Spine w Bend Min 6 Vwon 04-25-2025 L/S Spine w Bend Min 6 Vw [facility] [address] [place] [address] L/S Spine w Bend Min 6 Vw MR#: [id number] Acct: [id number] Name: MARIELY BHANDARI Rep #: [id number] : 1965 M 60 From: Yaw Arroyo MD PCP: Dr. Kayleen Chen MD Status: REG CLI Study: L/S Spine w Bend Min 6 Vw Date of Exam: Exam# [id number] Ordering Dr: Kayleen Chen EXAM: XR Lumbosacral Spine Complete with Flexion/Extension, 6 or More Views CLINICAL INDICATION: DORSALGIA TECHNIQUE: Lateral, frontal, oblique and lateral flexion/extension views of the lumbar spine and sacrum. COMPARISON: No relevant prior studies available. FINDINGS: VERTEBRAE: Anterior spondylolisthesis of L4 over L5 by 5 mm, which reduces to 1 mm with extension and increases to 8 mm on flexion. Multilevel endplate degenerative changes and disc degeneration visualized spine, most prominent at L5-S1. Moderate facet arthropathy of L3-S1. No acute fracture. SACRUM/COCCYX: Unremarkable as visualized. No acute fracture. DISC SPACES: See above. SOFT TISSUES: Unremarkable. RAD/L/S Spine w Bend Min 6 Vw IMPRESSION: 1. Anterior spondylolisthesis of L4 over L5 by 5 mm, which reduces to 1 mm with extension and increases to 8 mm on flexion. 2. Degenerative changes as above. Reading Location: [facility] CC: Dr. Kayleen Chen MD Butcher: Signed Normal [facility] L501.5101on 04-02-2025 GGTP 490 IU/L Abnormal 0-65 [facility] Comment on above: Order Comment: Order Date: 04/01/25 Order Info: [id number] - GGTP Result Comment: Perf ormed at: - [facility] [address] [id number] [place], [place] [id number] Direct Entry Midwife: Mil Hinton PhD, Phone: [phone] Performed By: #### L 501.6822, L1000500, L500.2892, L547.4961 #### [facility] [address] [place] [address], [id number] Anion gap in Serum or Plasma Ordered By: aKyleen Chen on 04-01-2025 Anion gap [Moles/Vol] 13 mmol/L 5-15 [facility] BUN/creatinine ratioOrdered By: Kayleen Chen on 04-01-2025 Urea nitrogen/Creatinine [Mass ratio] 12.6 mg/mg 10-20 [facility] Bilirubin, totalOrdered By: Kayleen Chen on 04-01-2025 Bilirubin [Mass/Vol] 0.79 mg/dL 0.00-1.30 [facility] CBC-Complete Blood Cnt No Di ffon 04-01-2025 Erythrocyte distribution width (RBC) [Ratio] 13.2 % Normal 11.6-14.6 [facility] Comment on above: Order Comment: Order Date: 04/01/25 Order Info: [id number] - CBC Performed By: #### L 501.5101, L100.0500, L500.4050, L503.6550 #### [facility] [address] [place], [address] Hematocrit (Bld) [Volume fraction] 41.7 % Normal 40-54 [facility] Comment on above: Order Comment: Order Date: 04/01/25 Order Info: [id number] - CBC Performed By: #### L 501.5101, L100.0500, L500.4050, L503.6550 #### [facility] [address] [place], [address] Hemoglobin (Bld) [Mass/Vol] 14.1 g/dL Normal 13.0-16.5 [facility] Comment on above: Order Comment: Order Date: 04/01/25 Order Info: [id number] - CBC Performed By: #### L 501.5101, L100.0500, L500.4050, L503.6550 #### [facility] [address] [place], [address] MCH (RBC) [Entitic mass] 33.6 pg High 27.0-32.0 [facility] Comment on above: Order Comment: Order Date: 04/01/25 Order Info: [id number] - CBC Performed By: #### L 501.5101, L100.0500, L500.4050, L503.6550 #### [facility] [address] [place], [address] MCHC (RBC) [Mass/Vol] 33.8 g/dL Normal 32-36 [facility] Comment on above: Order Comment: Order Date: 04/01/25 Order Info: [id number] - CBC Performed By: #### L 501.5101, L100.0500, L500.4050, L503.6550 #### [facility] [address] [place], [address] MCV (RBC) [Entitic vol] 99.3 fL High 80-94 [facility] Comment on above: Order Comment: Order Date: 04/01/25 Order Info: [id number] - CBC Performed By: #### L 501.5101, L100.0500, L500.4050, L503.6550 #### [facility] [address] [place], [address] Platelet mean volume (Bld) [Entitic vol] 9.9 fL Normal 6.2-12.0 [facility] Comment on above: Order Comment: Order Date: 04/01/25 Order Info: [id number] - CBC Performed By: #### L 501.5101, L100.0500, L500.4050, L503.6550 #### [facility] [address] [place], [address] Platelets (Bld) [#/Vol] 133 10*3/uL Low 150-450 [facility] Comment on above: Order Comment: Order Date: 04/01/25 Order Info: [id number] - CBC Performed By: #### L 501.5101, L100.0500, L500.4050, L503.6550 #### [facility] [address] [place], [address] RBC (Bld) [#/Vol] 4.20 10*6/uL Low 4.6-6.2 [facility] Comment on above: Order Comment: Order Date: 04/01/25 Order Info: [id number] - CBC Performed By: #### L 501.5101, L100.0500, L500.4050, L503.6550 #### [facility] [address] [place], [address] RDW SD 48.2 fl High 35.1-43.9 [facility] Comment on above: Order Comment: Order Date: 04/01/25 Order Info: [id number] - CBC Performed By: #### L 501.5101, L100.0500, L500.4050, L503.6550 #### [facility] [address] [place], [address] WBC (Bld) [#/Vol] 8.2 10*3/uL Normal 4.4-11.0 [facility] Comment on above: Order Comment: Order Date: 04/01/25 Order Info: [id number] - CBC Performed By: #### L 501.5101, L100.0500, L500.4050, L503.6550 #### [facility] [address] [place], [address] Carbon dioxide, total [Moles /volume] in Central venous bloodOrdered By: Kayleen Chen on 04-01-2025 CO2 [Moles/Vol] 21.2 mmol/L 21.0-32.0 [facility] Chloride assayOrdered By: Sherita Chen on 04-01-2025 Chloride [Moles/Vol] 106 mmol/L 98-108 [facility] Comprehensive Metabolic Prof ilon 04-01-2025 Albumin [Mass/Vol] 4.2 g/dL Normal 3.4-4.8 [facility] Comment on above: Order Comment: Order Date: 04/01/25 Order Info: [id number] - CMP Order Info: [id number] - CRISTHIAN Performed By: #### L 501.5101, L100.0500, L500.4050, L503.6550 #### [facility] [address] [place], [address] Albumin/Globulin [Mass ratio] 1.2 {ratio} Normal 0.9-2.4 [facility] Comment on above: Order Comment: Order Date: 04/01/25 Order Info: [id number] - CMP Order Info: [id number] - CRISTHIAN Performed By: #### L 501.5101, L100.0500, L500.4050, L503.6550 #### [facility] [address] [place], [address] ALK PHOS 124 U/L Normal 40-129 [facility] Comment on above: Order Comment: Order Date: 04/01/25 Order Info: [id number] - CMP Order Info: [id number] - CRISTHIAN Performed By: #### L 501.5101, L100.0500, L500.4050, L503.6550 #### [facility] [address] [place], [address] ALT [Catalytic activity/Vol] 79 U/L High <=46 [facility] Comment on above: Order Comment: Order Date: 04/01/25 Order Info: [id number] - CMP Order Info: [id number] - CRISTHIAN Performed By: #### L 501.5101, L100.0500, L500.4050, L503.6550 #### [facility] [address] [place], [address] AST [Catalytic activity/Vol] 78 U/L High <=37 [facility] Comment on above: Order Comment: Order Date: 04/01/25 Order Info: [id number] - CMP Order Info: 4 - CRISTHIAN Performed By: #### L 501.5101, L100.0500, L500.4050, L503.6550 #### [facility] [address] [place], [address] Bilirubin [Mass/Vol] 0.79 mg/dL Normal 0.00-1.30 [facility] Comment on above: Order Comment: Order Date: 04/01/25 Order Info: [id number]- - CMP Order Info: [id number] - CRISTHIAN Performed By: #### L 501.5101, L100.0500, L500.4050, L503.6550 #### [facility] [address] [place], [address] BUN/CRE 12.6 RATIO Normal 10-20 [facility] Comment on above: Order Comment: Order Date: 04/01/25 Order Info: [id number]- - CMP Order Info: [id number] - CRISTHIAN Performed By: #### L 501.5101, L100.0500, L500.4050, L503.6550 #### [facility] [address] [place], [address] Calcium [Mass/Vol] 9.6 mg/dL Normal 7.6-11.0 [facility] Comment on above: Order Comment: Order Date: 04/01/25 Order Info: [id number]- - CMP Order Info: [id number] - CRISTHIAN Performed By: #### L 501.5101, L100.0500, L500.4050, L503.6550 #### [facility] [address] [place], [address] Chloride [Moles/Vol] 106 mmol/L Normal 98-108 [facility] Comment on above: Order Comment: Order Date: 04/01/25 Order Info: [id number]- - CMP Order Info: [id number] - CRISTHIAN Performed By: #### L 501.5101, L100.0500, L500.4050, L503.6550 #### [facility] [address] [place], [address] CO2 [Moles/Vol] 21.2 mmol/L Normal 21.0-32.0 [facility] Comment on above: Order Comment: Order Date: 04/01/25 Order Info: 07 - [facility] Order Info: [id number] - CRISTHIAN Performed By: #### L 501.5101, L100.0500, L500.4050, L503.6550 #### [facility] [address] [place], [address] Creatinine [Mass/Vol] 0.99 mg/dL Normal 0.70-1.20 [facility] Comment on above: Order Comment: Order Date: 04/01/25 Order Info: [id number] - [facility] Order Info: [id number] - CRISTHIAN Performed By: #### L 501.5101, L100.0500, L500.4050, L503.6550 #### [facility] [address] [place], [address] GAP 13 Normal 5-15 [facility] Comment on above: Order Comment: Order Date: 04/01/25 Order Info: 07 - [facility] Order Info: 2276-01 - CRISTHIAN Performed By: #### L 501.5101, L100.0500, L500.4050, L503.6550 #### [facility] [address] [place], [address] GFR/1.73 sq M.predicted among non-blacks MDRD (S/P/Bld) [Vol rate/Area] 87 mL/min/{1.73_m2} Normal >60 [facility] Comment on above: Order Comment: Order Date: 04/01/25 Order Info: 07 - [facility] Order Info: [id number] - CRISTHIAN Result Comment: mL/m in/1.73m2 CKD-EPI Creatinine Equation (2020) Performed By: #### L 501.5101, L100.0500, L500.4050, L503.6550 #### [facility] [address] [place], [address] Globulin (S) [Mass/Vol] 3.5 g/dL Normal 2.2-4.2 [facility] Comment on above: Order Comment: Order Date: 04/01/25 Order Info: 0786-1 - [facility] Order Info: 2276-01 - CRIST[place]AN Performed By: #### L 501.5101, L100.0500, L500.4050, L503.6550 #### [facility] [address] [place], [address] Glucose [Mass/Vol] 114 mg/dL High 70-99 [facility] Comment on above: Order Comment: Order Date: 04/01/25 Order Info: 0786-1 - [facility] Order Info: 2276-01 - CRIST[place] Performed By: #### L 501.5101, L100.0500, L500.4050, L503.6550 #### [facility] [address] [place], [address] Potassium [Moles/Vol] 4.0 mmol/L Normal 3.3-5.1 [facility] Comment on above: Order Comment: Order Date: 04/01/25 Order Info: 0786-1 - [facility] Order Info: 2276-01 - C[place] Performed By: #### L 501.5101, L100.0500, L500.4050, L503.6550 #### [facility] [address] [place], [address] Sodium [Moles/Vol] 140 mmol/L Normal 133-145 [facility] Comment on above: Order Comment: Order Date: 04/01/25 Order Info: 0786-1 - [facility] Order Info: 2276-01 - [place] Performed By: #### L 501.5101, L100.0500, L500.4050, L503.6550 #### [facility] [address] [place], [address] T PROT 7.7 g/dL Normal 5.9-8.4 [facility] Comment on above: Order Comment: Order Date: 04/01/25 Order Info: 0786-1 - CMP Order Info: 2276-01 - [place] Performed By: #### L 501.5101, L100.0500, L500.4050, L503.6550 #### [facility] [address] [place], [place], [address] Urea nitrogen [Mass/Vol] 12 mg/dL Normal 4-19 [facility] Comment on above: Order Comment: Order Date: 04/01/25 Order Info: 0786-1 - CMP Order Info: [id number] - C[place]AN Performed By: #### L 501.5101, L100.0500, L500.4050, L503.6550 #### [facility] [address] [place], [place], [address] Erythrocyte distribution wid th ratioOrdered By: Kayleen Chen on 04-01-2025 Erythrocyte distribution width (RBC) [Ratio] 13.2 % 11.6-14.6 [facility] Erythrocyte distribution wid th standard deviationOrdered By: Kayleen Chen on 04-01-2025 Erythrocyte distribution width (RBC) [Ratio] 48.2 fl High 35.1-43.9 [facility] Ferritinon 04-01-2025 Ferritin [Mass/Vol] 193 ng/mL Normal 37-417 [facility] Comment on above: Order Comment: Order Date: 04/01/25 Order Info: 0786-1 - CMP Order Info: [id number] - CRISTHIAN Performed By: #### L 501.5101, L100.0500, L500.4050, L503.6550 #### [facility] [address] [place], [place], [id number] Gamma glutamyl transferase ( GGT) measurementOrdered By: Kayleen Chen on 04-01-2025 Amylase [Catalytic activity/Vol] 490 U/L High 0-65 [facility] Comment on above: Performed at: [address] [id number] Director: Mil Hinton PhD, Phone: [phone] Glomerular filtration rate ( GFR) estimation/1.73 sq m using serum, plasma, or whole bOrdered By: Kayleen Chen on 04-01-2025 GFR/1.73 sq M.predicted among non-blacks MDRD (S/P/Bld) [Vol rate/Area] 87 mL/min/{1.73_m2} >60 [facility] Comment on above: mL/min/1.73m2 CKD-EP I Creatinine Equation (2020) Hematocrit Auto (Bld) [Volum e fraction]Ordered By: Kayleen Chen on 04-01-2025 Hematocrit (Bld) [Volume fraction] 41.7 % 40-54 [facility] Hemoglobin measurementOrdere d By: Kayleen Chen on 04-01-2025 Hemoglobin (Bld) [Mass/Vol] 14.1 g/dL 13.0-16.5 [facility] - Chemistry and C hemistry - challengeOrdered By: Kayleen Chen on 04-01-2025 AST [Catalytic activity/Vol] 78 U/L High <38 [facility] MCV (mean corpuscular volume ) determinationOrdered By: [facility] Chen on 04-01-2025 MCV (RBC) [Entitic vol] 99.3 fL High 80-94 [facility] Mean corpuscular hemoglobin (MCH) determinationOrdered By: [facility] Chen on 04-01-2025 MCH (RBC) [Entitic mass] 33.6 pg High 27.0-32.0 [facility] Mean corpuscular hemoglobin concentration (MCHC) determinationOrdered By: Kayleen Chen on 04-01-2025 MCHC (RBC) [Mass/Vol] 33.8 g/dL 32-36 [facility] Mean platelet volume determi nationOrdered By: Kayleen Chen on 04-01-2025 Platelet mean volume (Bld) [Entitic vol] 9.9 fL 6.2-12.0 [facility] PSA,Total - Annual Screenon 04-01-2025 PSA,TOT SCREEN 1.04 ng/mL Normal 0.02-4.00 [facility] Comment on above: Order Comment: Order Date: 09/24/24Order Info: [id number] - URICOrder Info: 2857-1 - PSA Result Comment: This test was performed using the [employer] tPSA method. Measured values of a patient??sample can vary depending on the testing procedure used. PSA values determined on patient samples by different testing procedures cannot be used interchangeably. If there is a change in PSA assays while monitoring therapy, sequential testing should be performed to confirm baseline values. Performed By: #### L 501.9910 ####[facility] [address] [place], [address] Platelet countOrdered By: Sherita Chen on 04-01-2025 Platelets (Bld) [#/Vol] 133 10*3/uL Low 150-450 [facility] Potassium measurement (mass/ volume)Ordered By: Kayleen Chen on 04-01-2025 Potassium (Unsp spec) [Mass/Vol] 4.0 mmol/L 3.3-5.1 [facility] RBC Auto (Bld) [#/Vol]Ordere d By: Kayleen Chen on 04-01-2025 RBC (Bld) [#/Vol] 4.20 10*6/uL Low 4.6-6.2 [facility] Serum creatinine measurement (mass/volume)Ordered By: Kayleen Chen on 04-01-2025 Creatinine [Mass/Vol] 0.99 mg/dL 0.70-1.20 [facility] Serum globulin measurementOr dered By: Kayleen Chen on 04-01-2025 Globulin (S) [Mass/Vol] 3.5 g/dL 2.2-4.2 [facility] Serum glucose measurement (m ass/volume)Ordered By: Kayleen Chen on 04-01-2025 Glucose [Mass/Vol] 114 mg/dL High 70-99 [facility] Serum or plasma alanine edmondson otransferase (ALT) measurementOrdered By: Kayleen Chen on 04-01-2025 ALT [Catalytic activity/Vol] 79 U/L High <47 [facility] Serum or plasma albumin suzie urement (mass/volume)Ordered By: Kayleen Chen on 04-01-2025 Albumin [Mass/Vol] 4.2 g/dL 3.4-4.8 [facility] Serum or plasma albumin/glob ulin mass ratioOrdered By: Kayleen Chen on 04-01-2025 Albumin/Globulin [Mass ratio] 1.2 {ratio} 0.9-2.4 [facility] Serum or plasma alkaline sher sphatase measurementOrdered By: Kayleen Chen on 04-01-2025 ALP [Catalytic activity/Vol] 124 U/L 40-129 [facility] Serum or plasma calcium suzie urement (mass/volume)Ordered By: Kayleen Chne on 04-01-2025 Calcium [Mass/Vol] 9.6 mg/dL 7.6-11.0 [facility] Serum or plasma ferritin phuc surement (mass/volume)Ordered By: Kayleen Chen on 04-01-2025 Ferritin [Mass/Vol] 193 ng/mL 37-417 [facility] Serum or plasma urea nitroge n measurement (mass/volume)Ordered By: Kayleen Chen on 04-01-2025 Urea nitrogen [Mass/Vol] 12 mg/dL 4-19 [facility] Serum or plasma uric acid me asurement (mass/volume)Ordered By: Kayleen Chen on 04-01-2025 Urate [Mass/Vol] 6.9 mg/dL 3.5-7.2 [facility] Comment on above: The drugs N-Acetylcy steine and Metamizole may falsely depress this assay. Sodium levelOrdered By: Mya Chen on 04-01-2025 Sodium [Moles/Vol] 140 mmol/L 133-145 [facility] Total proteinOrdered By: Padmini Chen on 04-01-2025 Protein [Mass/Vol] 7.7 g/dL 5.9-8.4 [facility] Uric Acidon 04-01-2025 URIC 6.9 mg/dL Normal 3.5-7.2 [facility] Comment on above: Order Comment: Order Date: 09/24/24 Order Info: 3084-1 - URIC Order Info: [id number] - PSA Result Comment: The drugs N-Acetylcysteine and Metamizole may falsely depress this assay. Performed By: #### L 501.1400 #### [facility] [address] [place], [address] Vitamin B12on 04-01-2025 Cobalamin (Vitamin B12) [Mass/Vol] 526 pg/mL Normal 180-914 [facility] Comment on above: Order Comment: Order Date: 04/01/25Order Info: [id number] - CMPOrder Info: 2276-4 - [place]AN Performed By: #### L 503.0106 ####[facility] [address] [place], [address] Vitamin B12 ser/plasOrdered By: Kayleen Chen on 04-01-2025 Cobalamin (Vitamin B12) [Mass/Vol] 526 pg/mL 180-914 [facility] Vitamin D,25 Hydroxyon 04-01 Vitamin D 25-OH 41.4 ng/mL Normal 30-100 [facility] Comment on above: Order Comment: Order Date: 09/24/24Order Info: 3084-1 - URICOrder Info: 2857-1 - PSA Result Comment: Darlene min D Status Deficiency: <20 ng/mL (50nmol/L) Insufficiency: 20-30 ng/mL (50-75 nmol/L) Sufficiency: 30-100 ng/mL (75-250 nmol/L) Toxicity: >100 ng/mL (>250 nmol/L) Performed By: #### L 506.1001 ####[facility] [address] [place], [address] White blood cell (WBC) count Ordered By: Kayleen Chen on 04-01-2025 WBC (Bld) [#/Vol] 8.2 10*3/uL 4.4-11.0 [facility] Gastroenterology Visit Repor ton 09-03-2024 Gastroenterology Visit Report [facility] [address] [place] [address] OFFICE VISIT Date of Service: 09/03/24 MR#: [id number] Acct: [id number] Name: MARIELY BHANDARI Rep #: [id number] : 1965 Provider: ADRIAN shankar Age/Sex: 59/M [place] [facility] [place] Status: Signed Intake Vital Signs 02/13/24 10:06 09/03/24 07:58 Height 5 ft 9 in Weight: 239 lb 6 oz BP 151/92 H Respiration 18 Pulse 107 H Pulse Oximetry (%) 95 Oxygen Delivery Method room air Intake Visit Reasons: 3 M FU Chief Complaint: Alcholic Cirrhosis Subscription Agent Required: No Is patient in pain?: No Allergies No Known Allergies Allergy (Verified 09/03/24 08:01) Medications ???Medication ???Instructions ???Recorded ???Confirmed ???Type amlodipine 5 mg tablet 5 mg PO QDAY 10/21/17 09/03/24 History losartan 100 mg tablet 100 mg PO DAILY 11/09/22 09/03/24 History fenofibrate 54 mg tablet 54 mg PO DAILY 1 month #30 tabs 05/12/24 09/03/24 Rx carvedilol 12.5 mg tablet 12.5 mg PO BID 09/03/24 09/03/24 History cholecalciferol (vitamin D3) 1,250 1,250 mcg PO QWEEK 09/03/24 09/03/24 History mcg (50,000 unit) capsule escitalopram oxalate 10 mg tablet 10 mg PO QDAY 09/03/24 09/03/24 History dskbugigcmie-vww-ivajp acid-vit 1 tab PO QDAY 09/03/24 09/03/24 History K-lycop 400 mcg-20 mcg-370 mcg tablet pantoprazole 20 mg tablet,delayed 20 mg PO BID #180 TABLETS 09/03/24 09/03/24 Rx release rifaximin 550 mg tablet (Xifaxan) 550 mg PO BID 1 month #60 tabs 09/03/24 09/03/24 Rx vit C 250 mg-vit E 90 mg-zinc 40 1 tab PO BID 09/03/24 09/03/24 History mg-copper 1 oj-obfsmy-fnbbqx capsule (PreserVision AREDS-2) Nurse's Note: Patient denies swelling of feet/ankles/hands. Says he bloats when he drinks, has about 6 beers a day. [facility] Medical History Abdominal pain Alcohol abuse Chewing tobacco nicotine dependence Colonic thickening Erectile dysfunction Gout History of stress test Hyperlipemia Hypertension Leg cramps Neck nodule Wears glasses Surgical History History of hemorrhoidectomy History of umbilical hernia repair Hx of colonoscopy Hx of rotator cuff surgery Family History Mother Breast cancer Social History Smoking Status: Current every day smoker tobacco type: smokeless tobacco quit status: not considering quitting alcohol intake: current alcohol intake frequency: 3 or more drinks per day Alcohol type: beer substance use type: does not use HPI HPI Chief Complaint: Alcholic Cirrhosis Details: 59y/o male presents for 3 month follow-up of alcoholic cirrhosis. He was last seen by Miladys Knapp on 06/04/2024 with complaints of increased abdominal bloating and muscle cramps. OV 06/04/2024 Guille Knapp Patient is here today for f/u. Liver elastography . with liver stiffness of 14.3 which is decreased from prior. MELD score 10 from February 2024. Patient has been doing well but now has complaints of abdominal bloating and muscle cramps. -Ordered lab work for patient to get before next f/u -Spoke with Dr. Mcdowell regarding increasing abdominal distention. He recommended KUB, abdominal US, TTE, UA and culture. Pending results we will consider starting Lasix 20mg BID and Aldactone 25 mg BID. Will call patient to discuss this plan. -Recommended he start vitamin E 800 IU daily for muscles spasms -He continues to take pantoprazole, Xifaxan, carvedilol, and fenofibrate -He will f/u in 3 months MELD 11 CBC: 08/27/2024 PLT 128 CMP: 08/27/2024 Na 138, Albumin 3.8, AST 82, ALT 77, ALP 121 INR: 08/27/2024 WNL Fe: 264 / 64% AFP: 08/27/2024 6.9 ABD US: 03/27/2024 negative for hepatoma 08/27/2024 negative for ascites Elastography: 03/27/2024 kPa 14.3 down from 28 October 2023 MEDS: Pantoprazole BID, Milk Thistle, EGD: 05/02/2023 Severe portal hypertensive gastropathy was found in the entire examined stomach. Many non-bleeding superficial duodenal ulcers with no stigmata of bleeding were found in the duodenal bulb. The largest lesion was 6 mm in largest dimension. Negative fro H. pylori Colon: 05/02/2023 TA RECALL COLON: April 2026 - continues to drink 6 beers a day - for the past 45 years - only bloats when he drinks - hard to button his pants - denies any pain - denies any N/V - denies any bleeding - denies any weight loss - reports a weight gain of 12lbs in the past year - reports very little added salt to foods - denies any change in bowel habits - reports when he drinks a lot of beer he has increased diarrhea - reports doing a rehab in the past x2 - he was able to stop (more content not included)... Normal [facility] AFP, Tumor Markeron 08-30-20 AFP TUMOR YAW 6.9 ng/mL Normal 0.0-8.4 [facility] Comment on above: Order Comment: Test( s) 589723-Wah. B1, Whole Bloodwas developed and its performance characteristicsdetermined by [employer]. It has not been cleared or approvedby the Food and Drug Administration.N Result Comment: [employer] Electrochemiluminescence Immunoassay (ECLIA) Values obtained with different assay methods or kits cannot be used interchangeably. Results cannot be interpreted as absolute evidence of the presence or absence of malignant disease. This test is not interpretable in females. Performed By: #### L 100.0100, L506.0250, M100.2200, L400.2011, L3300.8000, L501.9985, L503.6030, L501.2300, L503.0105, L500.4100, L501.5200, L501.9520, L501.5101, L501.6710, L300.3900, L3300.0700, L500.4050, L101.9900, L503.6550 ####[facility] [address] [place], [address] L501.5101on 08-30-2024 GGTP 510 IU/L Abnormal 0-65 [facility] Comment on above: Order Comment: Test( s) 077659-Rpn. B1, Whole Bloodwas developed and its performance characteristicsdetermined by [employer] It has not been cleared or approvedby the Food and Drug Administration.N Result Comment: Perf ormed at: [address] [id number] Direct Entry Midwife: Mil Hinton PhD, Phone: [phone] Performed at: [address] [id number] Direct Entry Midwife: Bindu Charles MD, Phone: [phone] Performed By: #### L 100.0100, L506.0250, M100.2199, L4.2010, L3300.8000, L501.9985, L503.6030, L501.2300, L503.0105, L500.4100, L501.5200, L501.9520, L501.5101, L501.6710, L300.3900, L3300.0700, L500.4050, L101.9900, L503.6550 ####[facility] [address] [place], [place], [id number] Vitamin B1, Thiamineon 08-30 VIT B1 THIAMINE 125.9 nmol/L Normal 66.5-200.0 [facility] Comment on above: Order Comment: Test( s) 727036-Nmx. B1, Whole Bloodwas developed and its performance characteristicsdetermined by [employer] It has not been cleared or approvedby the Food and Drug Administration.N Performed By: #### L 100.0100, L506.0250, M1.2199, L4.2010, L3300.8000, L501.9985, L503.6030, L501.2300, L503.0105, L500.4100, L501.5200, L501.9520, L501.5101, L501.6710, L300.3900, L3300.0700, L500.4050, L101.9900, L503.6550 ####[facility] [address] [place], [address] Urine Cultureon 08-28-2024 URC Culture exhibits no growth. Normal [facility] Comment on above: Performed By: #### L 100.0100, L506.0250, M100.2200, L400.2011, L3300.8000, L501.9985, L503.6030, L501.2300, L503.0105, L500.4100, L501.5200, L501.9520, L501.5101, L501.6710, L300.3900, L3300.0700, L500.4050, L101.9900, L503.6550 ####[facility] [address] [place], [address] Abdomen Limitedon 08-27-2024 Abdomen Limited [facility] [address] [place], [place] [address] Abdomen Limited MR#: [id number] Acct: [id number] Name: MARIELY BHANDARI Rep #: [id number] : 1965 M 59 From: Carmenza Fox MD PCP: Dr. Kayleen Chen MD Status: [facility] Study: Abdomen Limited Date of Exam: 08/27/24 Exam# [id number] Ordering Dr: Miladys Knapp [id number] INDICATION: acsites EXAMINATION: Ultrasound US Abdomen Limited (quadrant) TECHNIQUE: Lynch scale and color doppler imaging was performed of the 4 abdominal quadrants. COMPARISON: October 12, 2022 FINDINGS: No free fluid is visualized. No discrete solid or cystic lesions are identified. US/Abdomen Limited IMPRESSION: No ascites identified. Electronically Signed: Carmenza Fox MD at 8:03 EST , CC: Dr. Kayleen Chen MD; AMBER Carney Butcher: Signed Normal [facility] CBC W/Diff, Automatedon 11- Absolute Lymph 1.95 X10 3/uL Normal 0.83-4.51 [facility] Comment on above: Performed By: #### L 100.0100, L506.0250, M100.2200, L400.2011, L3300.8000, L501.9985, L503.6030, L501.2300, L503.0105, L500.4100, L501.5200, L501.9520, L501.5101, L501.6710, L300.3900, L3300.0700, L500.4050, L101.9900, L503.6550 ####[facility] [address] [place], [place], [phone] Absolute Neut 3.7 X10 3/uL Normal 2.0-7.7 [facility] Comment on above: Performed By: #### L 100.0100, L506.0250, M100.2200, L400.2010, L3300.8000, L501.9985, L503.6030, L501.2300, L503.0105, L500.4100, L501.5200, L501.9520, L501.5101, L501.6710, L300.3900, L3300.0700, L500.4050, L101.9900, L503.6550 ####[facility] [address] [place], [place], [phone]) Basophils/100 WBC (Bld) 1.1 % High 0-1 [facility] Comment on above: Performed By: #### L 100.0100, L506.0250, M100.2200, L400.2010, L3300.8000, L501.9985, L503.6030, L501.2300, L503.0105, L500.4100, L501.5200, L501.9520, L501.5101, L501.6710, L300.3900, L3300.0700, L500.4050, L101.9900, L503.6550 ####[facility] [address] [place], [place], [phone] Eosinophils/100 WBC (Bld) 2.1 % Normal 0-5 [facility] Comment on above: Performed By: #### L 100.0100, L506.0250, M100.2200, L400.2011, L3300.8000, L501.9985, L503.6030, L501.2300, L503.0105, L500.4100, L501.5200, L501.9520, L501.5101, L501.6710, L300.3900, L3300.0700, L500.4050, L101.9900, L503.6550 ####[facility] [address] [place], [place], [phone]) Erythrocyte distribution width (RBC) [Ratio] 13.7 % Normal 11.6-14.6 [facility] Comment on above: Performed By: #### L 100.0100, L506.0250, M100.2200, L400.2011, L3300.8000, L501.9985, L503.6030, L501.2300, L503.0105, L500.4100, L501.5200, L501.9520, L501.5101, L501.6710, L300.3900, L3300.0700, L500.4050, L101.9900, L503.6550 ####[facility] [address] [place], [place], [phone]) Hematocrit (Bld) [Volume fraction] 42.9 % Normal 40-54 [facility] Comment on above: Performed By: #### L 100.0100, L506.0250, M100.2200, L400.2011, L3300.8000, L501.9985, L503.6030, L501.2300, L503.0105, L500.4100, L501.5200, L501.9520, L501.5101, L501.6710, L300.3900, L3300.0700, L500.4050, L101.9900, L503.6550 ####[facility] [address] [facility] [place], [place], [phone] Hemoglobin (Bld) [Mass/Vol] 14.4 g/dL Normal 13.0-16.5 [facility] Comment on above: Performed By: #### L 100.0100, L506.0250, M100.2200, L400.2010, L3300.8000, L501.9985, L503.6030, L501.2300, L503.0105, L500.4100, L501.5200, L501.9520, L501.5101, L501.6710, L300.3900, L3300.0700, L500.4050, L101.9900, L503.6550 ####[facility] [address] [facility] [place], [place], [phone] IG% 0.500 Normal 0.0-0.9 [facility] Comment on above: Result Comment: IG% - Immature Granulocytes (promyelocytes, myelocytes and metamyelocytes) > 1% indicates that a LEFT SHIFT is Present. Performed By: #### L 100.0100, L506.0250, M100.2200, L400.2011, L3300.8000, L501.9985, L503.6030, L501.2300, L503.0105, L500.4100, L501.5200, L501.9520, L501.5101, L501.6710, L300.3900, L3300.0700, L500.4050, L101.9900, L503.6550 ####[facility] [address] [facility] [place], [address] Lymphocytes/100 WBC (Bld) 29.3 % Normal 19-41 [facility] Comment on above: Performed By: #### L 100.0100, L506.0250, M100.2200, L400.2010, L3300.8000, L501.9985, L503.6030, L501.2300, L503.0105, L500.4100, L501.5200, L501.9520, L501.5101, L501.6710, L300.3900, L3300.0700, L500.4050, L101.9900, L503.6550 ####[facility] [address] [place], [place], [phone] MCH (RBC) [Entitic mass] 32.3 pg High 27.0-32.0 [facility] Comment on above: Performed By: #### L 100.0100, L506.0250, M100.2200, L400.2010, L3300.8000, L501.9985, L503.6030, L501.2300, L503.0105, L500.4100, L501.5200, L501.9520, L501.5101, L501.6710, L300.3900, L3300.0700, L500.4050, L101.9900, L503.6550 ####[facility] [address] [place], [place], [phone] MCHC (RBC) [Mass/Vol] 33.6 g/dL Normal 32-36 [facility] Comment on above: Performed By: #### L 100.0100, L506.0250, M100.2200, L400.2010, L3300.8000, L501.9985, L503.6030, L501.2300, L503.0105, L500.4100, L501.5200, L501.9520, L501.5101, L501.6710, L300.3900, L3300.0700, L500.4050, L101.9900, L503.6550 ####[facility] [address] [place], [address] MCV (RBC) [Entitic vol] 96.2 fL High 80-94 [facility] Comment on above: Performed By: #### L 100.0100, L506.0250, M100.2200, L400.2010, L3300.8000, L501.9985, L503.6030, L501.2300, L503.0105, L500.4100, L501.5200, L501.9520, L501.5101, L501.6710, L300.3900, L3300.0700, L500.4050, L101.9900, L503.6550 ####[facility] [address] [place], [address] Monocytes/100 WBC (Bld) 11.0 % High 0-10 [facility] Comment on above: Performed By: #### L 100.0100, L506.0250, M100.2200, L400.2010, L3300.8000, L501.9985, L503.6030, L501.2300, L503.0105, L500.4100, L501.5200, L501.9520, L501.5101, L501.6710, L300.3900, L3300.0700, L500.4050, L101.9900, L503.6550 ####[facility] [address] [place], [address] Neutrophils/100 WBC (Bld) 56.0 % Normal 47-70 [facility] Comment on above: Performed By: #### L 100.0100, L506.0250, M100.2200, L400.2010, L3300.8000, L501.9985, L503.6030, L501.2300, L503.0105, L500.4100, L501.5200, L501.9520, L501.5101, L501.6710, L300.3900, L3300.0700, L500.4050, L101.9900, L503.6550 ####[facility] [address] [place], [place], [phone](851) Nucleated RBC (Bld) [#/Vol] 0 10*3/uL Normal 0-5 [facility] Comment on above: Performed By: #### L 100.0100, L506.0250, M100.2200, L400.2011, L3300.8000, L501.9985, L503.6030, L501.2300, L503.0105, L500.4100, L501.5200, L501.9520, L501.5101, L501.6710, L300.3900, L3300.0700, L500.4050, L101.9900, L503.6550 ####[facility] [address] [place], [place], [phone]) Platelet mean volume (Bld) [Entitic vol] 9.6 fL Normal 6.2-12.0 [facility] Comment on above: Performed By: #### L 100.0100, L506.0250, M100.2200, L400.2010, L3300.8000, L501.9985, L503.6030, L501.2300, L503.0105, L500.4100, L501.5200, L501.9520, L501.5101, L501.6710, L300.3900, L3300.0700, L500.4050, L101.9900, L503.6550 ####[facility] [address] [facility] [address] [place], [place], [phone]) Platelets (Bld) [#/Vol] 128 10*3/uL Low 150-450 [facility] Comment on above: Performed By: #### L 100.0100, L506.0250, M100.2200, L400.2010, L3300.8000, L501.9985, L503.6030, L501.2300, L503.0105, L500.4100, L501.5200, L501.9520, L501.5101, L501.6710, L300.3900, L3300.0700, L500.4050, L101.9900, L503.6550 ####[facility] [address] [place], [place], [phone]) RBC (Bld) [#/Vol] 4.46 10*6/uL Low 4.6-6.2 [facility] Comment on above: Performed By: #### L 100.0100, L506.0250, M100.2200, L400.2011, L3300.8000, L501.9985, L503.6030, L501.2300, L503.0105, L500.4100, L501.5200, L501.9520, L501.5101, L501.6710, L300.3900, L3300.0700, L500.4050, L101.9900, L503.6550 ####[facility] [address] [place], [place], [phone](900) RDW SD 48.9 fl High 35.1-43.9 [facility] Comment on above: Performed By: #### L 100.0100, L506.0250, M100.2200, L400.2011, L3300.8000, L501.9985, L503.6030, L501.2300, L503.0105, L500.4100, L501.5200, L501.9520, L501.5101, L501.6710, L300.3900, L3300.0700, L500.4050, L101.9900, L503.6550 ####[facility] [address] [place], [place], [phone]) WBC (Bld) [#/Vol] 6.7 10*3/uL Normal 4.4-11.0 [facility] Comment on above: Performed By: #### L 100.0100, L506.0250, M100.2200, L400.2011, L3300.8000, L501.9985, L503.6030, L501.2300, L503.0105, L500.4100, L501.5200, L501.9520, L501.5101, L501.6710, L300.3900, L3300.0700, L500.4050, L101.9900, L503.6550 ####[facility] [address] [facility] [place], [place], [phone] CRPon 08-27-2024 C-REACTIVE PROT < 2.90 Normal 0.0-3.0 [facility] Comment on above: Order Comment: N Result Comment: C-Re active Protein (CRP) provides useful information for the diagnosis, therapy and monitoring of inflammatory processes and associated diseases. For the evaluation of Relative Risk for Cardiovascular Disease, a High Sensitivity CRP (HSCRP) should be ordered. Performed By: #### L 100.0100, L506.0250, M100.2200, L400.2010, L3300.8000, L501.9985, L503.6030, L501.2300, L503.0105, L500.4100, L501.5200, L501.9520, L501.5101, L501.6710, L300.3900, L3300.0700, L500.4050, L101.9900, L503.6550 ####[facility] [address] [facility] [place], [place], [phone] Comprehensive Metabolic Prof ilon 08-27-2024 Albumin [Mass/Vol] 3.8 g/dL Normal 3.2-5.0 [facility] Comment on above: Order Comment: N Performed By: #### L 100.0100, L506.0250, M100.2200, L400.2011, L3300.8000, L501.9985, L503.6030, L501.2300, L503.0105, L500.4100, L501.5200, L501.9520, L501.5101, L501.6710, L300.3900, L3300.0700, L500.4050, L101.9900, L503.6550 ####[facility] [address] [place], [place], [phone] Albumin/Globulin [Mass ratio] 0.8 {ratio} Low 0.9-2.4 [facility] Comment on above: Order Comment: N Performed By: #### L 100.0100, L506.0250, M100.2200, L400.2010, L3300.8000, L501.9985, L503.6030, L501.2300, L503.0105, L500.4100, L501.5200, L501.9520, L501.5101, L501.6710, L300.3900, L3300.0700, L500.4050, L101.9900, L503.6550 ####[facility] [address] [place], [place], [phone] ALK P 121 U/L High 45-117 [facility] Comment on above: Order Comment: N Performed By: #### L 100.0100, L506.0250, M100.0, L4.2010, L3300.8000, L501.9985, L503.6030, L501.2300, L503.0105, L500.4100, L501.5200, L501.9520, L501.5101, L501.6710, L300.3900, L3300.0700, L500.4050, L101.9900, L503.6550 ####[facility] [address] [place], [place], [phone] ALT [Catalytic activity/Vol] 77 U/L High 16-61 [facility] Comment on above: Order Comment: N Performed By: #### L 100.0100, L506.0250, M100.2200, L4.2010, L3300.8000, L501.9985, L503.6030, L501.2300, L503.0105, L500.4100, L501.5200, L501.9520, L501.5101, L501.6710, L300.3900, L3300.0700, L500.4050, L101.9900, L503.6550 ####[facility] [address] [place], [place], [phone] AST [Catalytic activity/Vol] 82 U/L High 15-37 [facility] Comment on above: Order Comment: N Performed By: #### L 100.0100, L506.0250, M100.2200, L400.2011, L3300.8000, L501.9985, L503.6030, L501.2300, L503.0105, L500.4100, L501.5200, L501.9520, L501.5101, L501.6710, L300.3900, L3300.0700, L500.4050, L101.9900, L503.6550 ####[facility] [address] [place], [place], [phone] Bilirubin [Mass/Vol] 1.50 mg/dL High 0.20-1.00 [facility] Comment on above: Order Comment: N Result Comment: For patients on eltrombopag therapy, use of Dimension Ringold TBIL is not recommended. Performed By: #### L 100.0100, L506.0250, M100.2200, L400.2010, L3300.8000, L501.9985, L503.6030, L501.2300, L503.0105, L500.4100, L501.5200, L501.9520, L501.5101, L501.6710, L300.3900, L3300.0700, L500.4050, L101.9900, L503.6550 ####[facility] [address] [place], [place], [phone] BUN/CRE 14.2 RATIO Normal 10-20 [facility] Comment on above: Order Comment: N Performed By: #### L 100.0100, L506.0250, M100.2200, L400.2011, L3300.8000, L501.9985, L503.6030, L501.2300, L503.0105, L500.4100, L501.5200, L501.9520, L501.5101, L501.6710, L300.3900, L3300.0700, L500.4050, L101.9900, L503.6550 ####[facility] [address] [place], [place], [phone](703) CA,Total 9.4 mg/dL Normal 8.5-10.1 [facility] Comment on above: Order Comment: N Performed By: #### L 100.0100, L506.0250, M100.2200, L400.2010, L3300.8000, L501.9985, L503.6030, L501.2300, L503.0105, L500.4100, L501.5200, L501.9520, L501.5101, L501.6710, L300.3900, L3300.0700, L500.4050, L101.9900, L503.6550 ####[facility] [address] [place], [place], [phone] Chloride [Moles/Vol] 104 mmol/L Normal 98-107 [facility] Comment on above: Order Comment: N Performed By: #### L 100.0100, L506.0250, M100.2200, L400.2010, L3300.8000, L501.9985, L503.6030, L501.2300, L503.0105, L500.4100, L501.5200, L501.9520, L501.5101, L501.6710, L300.3900, L3300.0700, L500.4050, L101.9900, L503.6550 ####[facility] [address] [place], [place], [phone] CO2 [Moles/Vol] 27.0 mmol/L Normal 21.0-32.0 [facility] Comment on above: Order Comment: N Performed By: #### L 100.0100, L506.0250, M100.2200, L400.2010, L3300.8000, L501.9985, L503.6030, L501.2300, L503.0105, L500.4100, L501.5200, L501.9520, L501.5101, L501.6710, L300.3900, L3300.0700, L500.4050, L101.9900, L503.6550 ####[facility] [address] [place], [place], [phone] Creatinine [Mass/Vol] 1.06 mg/dL Normal 0.70-1.30 [facility] Comment on above: Order Comment: N Result Comment: The validity of the calculated GFR GFRAA in patients over 70 years has not been determined. Clinical correlation is essential. Performed By: #### L 100.0100, L506.0250, M100.2199, L4.2010, L3300.8000, L501.9985, L503.6030, L501.2300, L503.0105, L500.4100, L501.5200, L501.9520, L501.5101, L501.6710, L300.3900, L3300.0700, L500.4050, L101.9900, L503.6550 ####[facility] [address] [place], [place], [phone] EST GFR - AA 91 mL/min Normal >60 [facility] Comment on above: Order Comment: N Result Comment: Afri can Tajik GFR Calc Performed By: #### L 100.0100, L506.0250, M100.2200, L400.2010, L3300.8000, L501.9985, L503.6030, L501.2300, L503.0105, L500.4100, L501.5200, L501.9520, L501.5101, L501.6710, L300.3900, L3300.0700, L500.4050, L101.9900, L503.6550 ####[facility] [address] [place], [place], [phone] GAP 6 Normal 5-15 [facility] Comment on above: Order Comment: N Performed By: #### L 100.0100, L506.0250, M100.2200, L400.2010, L3300.8000, L501.9985, L503.6030, L501.2300, L503.0105, L500.4100, L501.5200, L501.9520, L501.5101, L501.6710, L300.3900, L3300.0700, L500.4050, L101.9900, L503.6550 ####[facility] [address] [place], [address] GFR/1.73 sq M.predicted among non-blacks MDRD (S/P/Bld) [Vol rate/Area] 75 mL/min/{1.73_m2} Normal >60 [facility] Comment on above: Order Comment: N Result Comment: Non- GFR Calc Performed By: #### L 100.0100, L506.0250, M100.2200, L400.2010, L3300.8000, L501.9985, L503.6030, L501.2300, L503.0105, L500.4100, L501.5200, L501.9520, L501.5101, L501.6710, L300.3900, L3300.0700, L500.4050, L101.9900, L503.6550 ####[facility] [address] [place], [address] Globulin (S) [Mass/Vol] 4.5 g/dL High 2.2-4.2 [facility] Comment on above: Order Comment: N Performed By: #### L 100.0100, L506.0250, M100.2200, L400.2010, L3300.8000, L501.9985, L503.6030, L501.2300, L503.0105, L500.4100, L501.5200, L501.9520, L501.5101, L501.6710, L300.3900, L3300.0700, L500.4050, L101.9900, L503.6550 ####[facility] [address] [place], [place], [phone] Glucose [Mass/Vol] 117 mg/dL High 74-106 [facility] Comment on above: Order Comment: N Result Comment: Fast ing Glucose result from 100 to 125 mg/dL suggests IMPAIRED HOMEOSTASIS per A.D.A. criteria. Performed By: #### L 100.0100, L506.0250, M100.2199, L4.2010, L3300.8000, L501.9985, L503.6030, L501.2300, L503.0105, L500.4100, L501.5200, L501.9520, L501.5101, L501.6710, L300.3900, L3300.0700, L500.4050, L101.9900, L503.6550 ####[facility] [address] [place], [place], [phone] Potassium [Moles/Vol] 4.2 mmol/L Normal 3.5-5.1 [facility] Comment on above: Order Comment: N Performed By: #### L 100.0100, L506.0250, M100.2200, L4.2010, L3300.8000, L501.9985, L503.6030, L501.2300, L503.0105, L500.4100, L501.5200, L501.9520, L501.5101, L501.6710, L300.3900, L3300.0700, L500.4050, L101.9900, L503.6550 ####[facility] [address] [place], [place], [phone] Sodium [Moles/Vol] 138 mmol/L Normal 136-145 [facility] Comment on above: Order Comment: N Performed By: #### L 100.0100, L506.0250, M100.2200, L400.2010, L3300.8000, L501.9985, L503.6030, L501.2300, L503.0105, L500.4100, L501.5200, L501.9520, L501.5101, L501.6710, L300.3900, L3300.0700, L500.4050, L101.9900, L503.6550 ####[facility] [address] [place], [place], [phone] T PROT 8.3 g/dL High 6.4-8.2 [facility] Comment on above: Order Comment: N Performed By: #### L 100.0100, L506.0250, M100.2200, L400.2010, L3300.8000, L501.9985, L503.6030, L501.2300, L503.0105, L500.4100, L501.5200, L501.9520, L501.5101, L501.6710, L300.3900, L3300.0700, L500.4050, L101.9900, L503.6550 ####[facility] [address] [place], [place], [phone] Urea nitrogen [Mass/Vol] 15 mg/dL Normal 7-18 [facility] Comment on above: Order Comment: N Performed By: #### L 100.0100, L506.0250, M100.2200, L400.2010, L3300.8000, L501.9985, L503.6030, L501.2300, L503.0105, L500.4100, L501.5200, L501.9520, L501.5101, L501.6710, L300.3900, L3300.0700, L500.4050, L101.9900, L503.6550 ####[facility] [address] [place], [address] Echo Completeon 08-27-2024 Echo Complete [facility] [address] [place] [address] Echo Complete 08/27/24 0805 MR#: [id number] Acct: [id number] Name: MARIELY BHANDARI Rep #: [id number] : 1965 59 From: Will Lopes MD Attending Dr: AMBER Carney Status: REG CLI Ordering Dr: Miladys Knapp Date: 08/27/24 Location: US Sex: M C Admitted: Reason For Study: Edema Procedure This was a 2D Doppler, Color Flow transthoracic echocardiogram. Exam performed in department. Left Ventricle Normal LV size. Left ventricular systolic function is normal. The left ventricular ejection fraction is 65 %. No regional wall motion abnormalities noted. Right Ventricle Normal RV size. Normal systolic function. Atria Normal left atrium. Normal right atrium. Mitral Valve Normal mitral valve. Tricuspid Valve Normal tricuspid valve. Aortic Valve Normal aortic valve. Pulmonic Valve Normal pulmonic valve. Great Vessels Normal aortic root. The pulmonary artery is normal size. Inferior vena cava collapse with respiration. Pericardium/Pleural No pericardial effusion. MMode/2D Measurements Calculations LVIDd: 5.2 cm IVSd: 1.0 cm Ao root diam: 3.7 cm LVIDs: 3.3 cm LVPWd: 0.98 cm RVDd: 3.9 cm FS: 35.7 % LAV(MOD-bp): 62.8 ml LVAd ap4: 33.4 cm2 SV(MOD-sp4): 68.1 ml LAV(MOD-bp) Indexed: 28.9 ml/m2 LVLd ap4: 8.0 cm SI(MOD-sp4): 31.4 ml/m2 LAV(MOD-sp2): 60.4 ml EDV(MOD-sp4): 111.0 ml LAV(MOD-sp4): 61.5 ml EDV(sp4-el): 118.2 ml LVAs ap4: 19.0 cm2 LVLs ap4: 7.1 cm ESV(MOD-sp4): 42.9 ml ESV(sp4-el): 42.9 ml EF(MOD-sp4): 61.4 % EF(sp4-el): 63.7 % SV(sp4-el): 75.3 ml LA A4 area: 21.1 cm2 LA dimension(2D): 4.3 cm RA A4 area: 17.7 cm2 Time Measurements MV dec time: 0.25 sec Doppler Measurements Calculations MV E max eliza: 78.7 cm/sec Lat Peak E' Eliza: 11.7 cm/sec Med Peak E' Eliza: 8.5 cm/sec MV A max eliza: 86.7 cm/sec E/E' lat: 6.7 E/E' med: 9.3 MV E/A: 0.91 MV V2 max: 107.1 cm/sec MV P1/2t max eliza: 88.0 cm/sec Ao V2 max: 138.4 cm/sec MV max P.6 mmHg MV P1/2t: 83.0 msec Ao max P.7 mmHg MV V2 mean: 59.7 cm/sec Ao V2 mean: 97.4 cm/sec MV mean P.7 mmHg MV dec slope: 310.7 cm/sec2 Ao mean P.3 mmHg MV V2 VTI: 27.1 cm MVA(P1/2t): 2.7 cm2 Ao V2 VTI: 33.3 cm AV (velocity ratio): 0.81 LV V1 max: 115.4 cm/sec PA V2 max: 113.6 cm/sec LV V1 max P.3 mmHg PI dec slope: 135.1 cm/sec2 LV V1 mean P.6 mmHg LV V1 mean: 75.9 cm/sec LV V1 VTI: 26.9 cm ECHO/Echo Complete Interpretation Summary Normal LV size. Left ventricular systolic function is normal. The left ventricular ejection fraction is 65 %. Structurally normal valves. Ordering Physician: Miladys Knapp Referring Physician: Miladys Knapp Performed By: Steven Skinner RCS 08/27/24 1004 Date Will Lopes MD CC: Dr. Kayleen Chen MD; AMBER Carney Date Dictated: 08/27/24804 Date Transcribed: 08/27/241003 Butcher: Signed Normal [facility] Erythrocyte Sed Rateon 08-27 SED RATE 21 mm/hr High 0-20 [facility] Comment on above: Performed By: #### L 100.0100, L506.0250, M100.2200, L400.2011, L3300.8000, L501.9985, L503.6030, L501.2300, L503.0105, L500.4100, L501.5200, L501.9520, L501.5101, L501.6710, L300.3900, L3300.0700, L500.4050, L101.9900, L503.6550 ####[facility] [address] [place], [place], [phone] Ferritinon 08-27-2024 Ferritin [Mass/Vol] 180 ng/mL Normal 26-388 [facility] Comment on above: Order Comment: N Performed By: #### L 100.0100, L506.0250, M100.2200, L400.2011, L3300.8000, L501.9985, L503.6030, L501.2300, L503.0105, L500.4100, L501.5200, L501.9520, L501.5101, L501.6710, L300.3900, L3300.0700, L500.4050, L101.9900, L503.6550 ####[facility] [address] [place], [place], [phone] Folates, (Folic Acid)on 08-10 FOLATES 19.70 ng/mL Normal 3.1-55.4 [facility] Comment on above: Order Comment: N Performed By: #### L 100.0100, L506.0250, M100.2200, L400.2010, L3300.8000, L501.9985, L503.6030, L501.2300, L503.0105, L500.4100, L501.5200, L501.9520, L501.5101, L501.6710, L300.3900, L3300.0700, L500.4050, L101.9900, L503.6550 ####[facility] [address] [place], [place], [address] Hemoglobin A1con 08-27-2024 HbA1c (Bld) [Mass fraction] 5.2 % Normal 3.8-5.6 [facility] Comment on above: Result Comment: Norm al < 5.7 % Prediabetic 5.7 - 6.4 % Diabetic >or= 6.5 % Please note range changes. Performed By: #### L 100.0100, L506.0250, M100.2199, L4.2010, L3300.8000, L501.9985, L503.6030, L501.2300, L503.0105, L500.4100, L501.5200, L501.9520, L501.5101, L501.6710, L300.3900, L3300.0700, L500.4050, L101.9900, L503.6550 ####[facility] [address] [place], [place], [phone] Iron+Iron Binding Capacityon 08-27-2024 Iron [Mass/Vol] 264 ug/dL High 65-175 [facility] Comment on above: Order Comment: N Performed By: #### L 100.0100, L506.0250, M100.2200, L400.2010, L3300.8000, L501.9985, L503.6030, L501.2300, L503.0105, L500.4100, L501.5200, L501.9520, L501.5101, L501.6710, L300.3900, L3300.0700, L500.4050, L101.9900, L503.6550 ####[facility] [address] [place], [place], [phone] IRON SATURATION 64.4 High 15.0-55.0 [facility] Comment on above: Order Comment: N Performed By: #### L 100.0100, L506.0250, M100.2200, L400.2010, L3300.8000, L501.9985, L503.6030, L501.2300, L503.0105, L500.4100, L501.5200, L501.9520, L501.5101, L501.6710, L300.3900, L3300.0700, L500.4050, L101.9900, L503.6550 ####[facility] [address] [place], [place], [phone] TIBC 410 ug/dL Normal 250-450 [facility] Comment on above: Order Comment: N Performed By: #### L 100.0100, L506.0250, M100.2200, L400.2010, L3300.8000, L501.9985, L503.6030, L501.2300, L503.0105, L500.4100, L501.5200, L501.9520, L501.5101, L501.6710, L300.3900, L3300.0700, L500.4050, L101.9900, L503.6550 ####[facility] [address] [place], [place], [phone] Lipid Profileon 08-27-2024 Cholesterol [Mass/Vol] 159 mg/dL Normal 200 [facility] Comment on above: Order Comment: N Result Comment: <200 mg/dL Desirable 200-240 mg/dL Borderline >240 mg/dL High Risk Performed By: #### L 100.0100, L506.0250, M100.2200, L400.2010, L3300.8000, L501.9985, L503.6030, L501.2300, L503.0105, L500.4100, L501.5200, L501.9520, L501.5101, L501.6710, L300.3900, L3300.0700, L500.4050, L101.9900, L503.6550 ####[facility] [address] [place], [address] Cholesterol in HDL [Mass/Vol] 63 mg/dL Normal [facility] Comment on above: Order Comment: N Result Comment: The drugs N-Acetylcysteine and Metamizole may falsely depress this assay. Reference Range HDL <40 mg/dL Low HDL Cholesterol HDL >or= 60 mg/dL High HDL Cholesterol Performed By: #### L 100.0100, L506.0250, M100.2200, L400.2010, L3300.8000, L501.9985, L503.6030, L501.2300, L503.0105, L500.4100, L501.5200, L501.9520, L501.5101, L501.6710, L300.3900, L3300.0700, L500.4050, L101.9900, L503.6550 ####[facility] [address] [place], [address] Cholesterol in LDL [Mass/Vol] 63 mg/dL Normal 0-130 [facility] Comment on above: Order Comment: N Performed By: #### L 100.0100, L506.0250, M100.2200, L400.2010, L3300.8000, L501.9985, L503.6030, L501.2300, L503.0105, L500.4100, L501.5200, L501.9520, L501.5101, L501.6710, L300.3900, L3300.0700, L500.4050, L101.9900, L503.6550 ####[facility] [address] [place], [address] Cholesterol in VLDL [Mass/Vol] 33 mg/dL Normal 5-40 [facility] Comment on above: Order Comment: N Performed By: #### L 100.0100, L506.0250, M100.2200, L400.2010, L3300.8000, L501.9985, L503.6030, L501.2300, L503.0105, L500.4100, L501.5200, L501.9520, L501.5101, L501.6710, L300.3900, L3300.0700, L500.4050, L101.9900, L503.6550 ####[facility] [address] [facility]. [place], [place], [phone] Triglyceride [Mass/Vol] 164 mg/dL Normal [facility] Comment on above: Order Comment: N Result Comment: The drugs N-Acetylcysteine and Metamizole may falsely depress this assay. Serum Triglycerides Reference Interval Normal <150 mg/dL Borderline high 150 - 199 mg/dL High 200 - 499 mg/dL Very High > or = 500 mg/dL Performed By: #### L 100.0100, L506.0250, M100.2199, L4.2010, L3300.8000, L501.9985, L503.6030, L501.2300, L503.0105, L500.4100, L501.5200, L501.9520, L501.5101, L501.6710, L300.3900, L3300.0700, L500.4050, L101.9900, L503.6550 ####[facility] [address] [facility] [place], [address] Magnesiumon 08-27-2024 Magnesium [Mass/Vol] 1.9 mg/dL Normal 1.6-2.6 [facility] Comment on above: Order Comment: N Performed By: #### L 100.0100, L506.0250, M100.2200, L4.2010, L3300.8000, L501.9985, L503.6030, L501.2300, L503.0105, L500.4100, L501.5200, L501.9520, L501.5101, L501.6710, L300.3900, L3300.0700, L500.4050, L101.9900, L503.6550 ####[facility] [address] [place], [place], [phone] Phosphoruson 08-27-2024 Phosphate [Mass/Vol] 2.8 mg/dL Normal 2.5-4.9 [facility] Comment on above: Order Comment: N Performed By: #### L 100.0100, L506.0250, M100.2200, L400.2011, L3300.8000, L501.9985, L503.6030, L501.2300, L503.0105, L500.4100, L501.5200, L501.9520, L501.5101, L501.6710, L300.3900, L3300.0700, L500.4050, L101.9900, L503.6550 ####[facility] [address] [place], [place], [phone] Prothrombin Time w/INRon INR Coag (PPP) [Relative time] 1.2 {INR} Normal [facility] Comment on above: Performed By: #### L 100.0100, L506.0250, M100.2200, L400.2011, L3300.8000, L501.9985, L503.6030, L501.2300, L503.0105, L500.4100, L501.5200, L501.9520, L501.5101, L501.6710, L300.3900, L3300.0700, L500.4050, L101.9900, L503.6550 ####[facility] [address] [place], [place], [phone] PT Coag (PPP) [Time] 14.8 s Normal 11.7-14.9 [facility] Comment on above: Performed By: #### L 100.0100, L506.0250, M100.2200, L400.2011, L3300.8000, L501.9985, L503.6030, L501.2300, L503.0105, L500.4100, L501.5200, L501.9520, L501.5101, L501.6710, L300.3900, L3300.0700, L500.4050, L101.9900, L503.6550 ####[facility] [address] [facility]. [place], [place], [phone] Thyroid Stim Hormone (TSH)on 08-27-2024 TSH 1.600 uIU/mL Normal 0.358-3.740 [facility] Comment on above: Order Comment: N Performed By: #### L 100.0100, L506.0250, M100.2200, L400.2010, L3300.8000, L501.9985, L503.6030, L501.2300, L503.0105, L500.4100, L501.5200, L501.9520, L501.5101, L501.6710, L300.3900, L3300.0700, L500.4050, L101.9900, L503.6550 ####[facility] [address] [facility]. [place], [place], [phone] Urinalysis, Routine (Dipstic k)on 08-27-2024 BILIRUBIN URINE Negative Normal Negative [facility] Comment on above: Order Comment: COLLE CTOR TO SPECIFY Performed By: #### L 100.0100, L506.0250, M100.2200, L400.2011, L3300.8000, L501.9985, L503.6030, L501.2300, L503.0105, L500.4100, L501.5200, L501.9520, L501.5101, L501.6710, L300.3900, L3300.0700, L500.4050, L101.9900, L503.6550 ####[facility] [address] [facility] [place], [phone] Clarity (U) Clear Normal Clear [facility] Comment on above: Order Comment: COLLE CTOR TO SPECIFY Performed By: #### L 100.0100, L506.0250, M100.2200, L400.2011, L3300.8000, L501.9985, L503.6030, L501.2300, L503.0105, L500.4100, L501.5200, L501.9520, L501.5101, L501.6710, L300.3900, L3300.0700, L500.4050, L101.9900, L503.6550 ####[facility] [address] [place], [place], [phone] Color (U) Straw Normal Yellow [facility] Comment on above: Order Comment: COLLE CTOR TO SPECIFY Performed By: #### L 100.0100, L506.0250, M100.2200, L400.2010, L3300.8000, L501.9985, L503.6030, L501.2300, L503.0105, L500.4100, L501.5200, L501.9520, L501.5101, L501.6710, L300.3900, L3300.0700, L500.4050, L101.9900, L503.6550 ####[facility] [address] [facility] [address] [place], [place], [id number] GLUCOSE, UR Normal Normal Normal [facility] Comment on above: Order Comment: COLLE CTOR TO SPECIFY Performed By: #### L 100.0100, L506.0250, M100.2200, L400.2011, L3300.8000, L501.9985, L503.6030, L501.2300, L503.0105, L500.4100, L501.5200, L501.9520, L501.5101, L501.6710, L300.3900, L3300.0700, L500.4050, L101.9900, L503.6550 ####[facility] [address] [place], [address] KETONE UR Negative Normal Negative [facility] Comment on above: Order Comment: COLLE CTOR TO SPECIFY Performed By: #### L 100.0100, L506.0250, M100.2200, L400.2011, L3300.8000, L501.9985, L503.6030, L501.2300, L503.0105, L500.4100, L501.5200, L501.9520, L501.5101, L501.6710, L300.3900, L3300.0700, L500.4050, L101.9900, L503.6550 ####[facility] [address] [place], [place], [address] LEUK ESTERASE Negative Normal Negative [facility] Comment on above: Order Comment: KEATON CTOR TO SPECIFY Performed By: #### L 100.0100, L506.0250, M100.2200, L400.2010, L3300.8000, L501.9985, L503.6030, L501.2300, L503.0105, L500.4100, L501.5200, L501.9520, L501.5101, L501.6710, L300.3900, L3300.0700, L500.4050, L101.9900, L503.6550 ####[facility] [address] [place], [place], [address] Nitrite Ql (U) Negative Normal Negative [facility] Comment on above: Order Comment: COLLE CTOR TO SPECIFY Performed By: #### L 100.0100, L506.0250, M100.2200, L400.2011, L3300.8000, L501.9985, L503.6030, L501.2300, L503.0105, L500.4100, L501.5200, L501.9520, L501.5101, L501.6710, L300.3900, L3300.0700, L500.4050, L101.9900, L503.6550 ####[facility] [address] [place], [place], [id number] OCCULT BLOOD-UR 25 /ul Abnormal Negative [facility] Comment on above: Order Comment: KEATON CTOR TO SPECIFY Performed By: #### L 100.0100, L506.0250, M100.2200, L400.2010, L3300.8000, L501.9985, L503.6030, L501.2300, L503.0105, L500.4100, L501.5200, L501.9520, L501.5101, L501.6710, L300.3900, L3300.0700, L500.4050, L101.9900, L503.6550 ####[facility] [address] [place], [address] pH UR 6.0 Normal 5.0 - 8.0 [facility] Comment on above: Order Comment: KEATON CTOR TO SPECIFY Performed By: #### L 100.0100, L506.0250, M100.2200, L400.2010, L3300.8000, L501.9985, L503.6030, L501.2300, L503.0105, L500.4100, L501.5200, L501.9520, L501.5101, L501.6710, L300.3900, L3300.0700, L500.4050, L101.9900, L503.6550 ####[facility] [address] [place], [place], [id number] PROT DIPSTX Negative Normal Negative [facility] Comment on above: Order Comment: KEATON CTOR TO SPECIFY Performed By: #### L 100.0100, L506.0250, M100.2200, L400.2010, L3300.8000, L501.9985, L503.6030, L501.2300, L503.0105, L500.4100, L501.5200, L501.9520, L501.5101, L501.6710, L300.3900, L3300.0700, L500.4050, L101.9900, L503.6550 ####[facility] [address] [place], [place], [id number] SP.GR. DIPSTX 1.015 Normal 1.002-1.030 [facility] Comment on above: Order Comment: COLLE CTOR TO SPECIFY Performed By: #### L 100.0100, L506.0250, M100.2200, L400.2010, L3300.8000, L501.9985, L503.6030, L501.2300, L503.0105, L500.4100, L501.5200, L501.9520, L501.5101, L501.6710, L300.3900, L3300.0700, L500.4050, L101.9900, L503.6550 ####[facility] [address] [place], [place], [id number] UROBILI Normal Normal Normal [facility] Comment on above: Order Comment: COLLE CTOR TO SPECIFY Performed By: #### L 100.0100, L506.0250, M100.2199, L4.2010, L3300.8000, L501.9985, L503.6030, L501.2300, L503.0105, L500.4100, L501.5200, L501.9520, L501.5101, L501.6710, L300.3900, L3300.0700, L500.4050, L101.9900, L503.6550 ####[facility] [address] [facility] [address] [place], [place], [id number] Vitamin B12on 08-27-2024 Cobalamin (Vitamin B12) [Mass/Vol] 491 pg/mL Normal 211-911 [facility] Comment on above: Performed By: #### L 100.0100, L506.0250, M100.2200, L4.2010, L3300.8000, L501.9985, L503.6030, L501.2300, L503.0105, L500.4100, L501.5200, L501.9520, L501.5101, L501.6710, L300.3900, L3300.0700, L500.4050, L101.9900, L503.6550 ####[facility] [address] [place], [address] Absolute lymphocyte countOrd ered By: Chris Costello on 02-13-2024 Lymphocytes Auto (Unsp spec) [#/Vol] 2.23 10*3/uL 0.83-4.51 [facility] Automated lymphocyte count a s percentage of total leukocytesOrdered By: Chris Costello on 02-13-2024 Lymphocytes/100 WBC Auto (Unsp spec) 34.4 % 19-41 [facility] Basophil percentageOrdered B y: Chris Costello on 02-13-2024 Basophil percentage 2.3 mg/dL 2.5-4.9 [facility] Basophils/100 WBC (Bld) 0.6 % 0-1 [facility] Bilirubin [Mass/Vol] 0.80 mg/dL 0.20-1.00 [facility] Comment on above: For patients on eltr ombopag therapy, use of Dimension Ringold TBIL is not recommended. Chloride [Moles/Vol] 103 mmol/L 98-107 [facility] Cholesterol [Mass/Vol] 134 mg/dL <200 [facility] Comment on above: <200 mg/dL Desirable 200-240 mg/dL Borderline >240 mg/dL High Risk Eosinophils/100 WBC (Bld) 2.3 % 0-5 [facility] Glucose [Mass/Vol] 106 mg/dL 74-106 [facility] Comment on above: Fasting Glucose resu lt from 100 to 125 mg/dL suggests IMPAIRED HOMEOSTASIS per A.D.A. criteria. Hemoglobin (Bld) [Mass/Vol] 13.6 g/dL 13.0-16.5 [facility] Monocytes/100 WBC (Bld) 13.3 % 0-10 [facility] Neutrophils (Bld) [#/Vol] 3.2 10*3/uL 2.0-7.7 [facility] Neutrophils/100 WBC (Bld) 49.2 % 47-70 [facility] Potassium [Moles/Vol] 3.8 mmol/L 3.5-5.1 [facility] Protein [Mass/Vol] 8.2 g/dL 6.4-8.2 [facility] Sodium [Moles/Vol] 133 mmol/L 136-145 [facility] Triglyceride [Mass/Vol] 162 mg/dL <199 [facility] Comment on above: The drugs N-Acetylcy steine and Metamizole may falsely depress this assay.Serum Triglycerides Reference Interval Normal <150 mg/dL Borderline high 150 - 199 mg/dL High 200 - 499 mg/dL Very High > or = 500 mg/dL WBC (Bld) [#/Vol] 6.5 10*3/uL 4.4-11.0 [facility] Determination of erythrocyte mean corpuscular volume (MCV)Ordered By: Chris Costello on 02-13-2024 MCV (RBC) [Entitic vol] 101.8 fL 80-94 [facility] Erythrocyte distribution wid th ratioOrdered By: Chris Costello on 02-13-2024 Erythrocyte distribution width (RBC) [Ratio] 12.4 % 11.6-14.6 [facility] Erythrocyte distribution wid th standard deviationOrdered By: Chris Costello on 02-13-2024 Erythrocyte distribution width (RBC) [Entitic vol] 47.0 fL 35.1-43.9 [facility] Hematocrit Auto (Bld) [Volum e fraction]Ordered By: Chris Costello on 02-13-2024 Hematocrit (Bld) [Volume fraction] 40.7 % 40-54 [facility] Immature granulocytes/100 WB C Auto (Bld)Ordered By: Chris Costello on 02-13-2024 Immature granulocytes/100 WBC (Bld) 0.200 % 0.0-0.9 [facility] Comment on above: IG% - Immature Granu locytes (promyelocytes, myelocytes and metamyelocytes) > 1% indicates that a LEFT SHIFT is Present. Iron measurement (mass/mass) Ordered By: Chris Costello on 02-13-2024 Iron (Unsp spec) [Mass/Mass] 121 ug/dL 65-175 [facility] Laboratory - Chemistry and C hemistry - challengeOrdered By: Chris Costello on 02-13-2024 Albumin/Globulin [Mass ratio] 0.9 {ratio} 0.9-2.4 [facility] ALP [Catalytic activity/Vol] 93 U/L 45-117 [facility] ALT [Catalytic activity/Vol] 64 U/L 16-61 [facility] Amylase [Catalytic activity/Vol] 585 U/L 15-85 [facility] Cholesterol in HDL [Mass/Vol] 57 mg/dL >40 [facility] Comment on above: The drugs N-Acetylcy steine and Metamizole may falsely depress this assay. Reference Range HDL <40 mg/dL Low HDL Cholesterol HDL >or= 60 mg/dL High HDL Cholesterol Cholesterol in LDL [Mass/Vol] 45 mg/dL 0-130 [facility] CO2 [Moles/Vol] 24.0 mmol/L 21.0-32.0 [facility] Cobalamin (Vitamin B12) [Mass/Vol] 488 pg/mL 211-911 [facility] Ferritin [Mass/Vol] 156 ng/mL 26-388 [facility] Globulin (S) [Mass/Vol] 4.4 g/dL 2.2-4.2 [facility] Magnesium [Mass/Vol] 2.5 mg/dL 1.6-2.6 [facility] Urea nitrogen/Creatinine [Mass ratio] 15.4 mg/mg 10-20 [facility] Laboratory - CoagulationOrde red By: Chris Costello on 02-13-2024 INR Coag (Bld) [Relative time] 1.3 {INR} [facility] PT Coag (PPP) [Time] 15.8 s 11.7-14.9 [facility] Laboratory - Hematology and Cell countsOrdered By: Chris Costello on 02-13-2024 MCH (RBC) [Entitic mass] 34.0 pg 27.0-32.0 [facility] MCHC (RBC) [Mass/Vol] 33.4 g/dL 32-36 [facility] Nucleated RBC/100 WBC (Bld) [Ratio] 0 % 0-5 [facility] Platelet mean volume (Bld) [Entitic vol] 9.7 fL 6.2-12.0 [facility] Platelets (Bld) [#/Vol] 123 10*3/uL 150-450 [facility] No Panel InformationOrdered By: Chris Costello on 02-13-2024 C-Reactive Protein Extended Range < 2.90 mg/L 0.0-3.0 [facility] Comment on above: C-Reactive Protein ( CRP) provides useful information for thediagnosis, therapy and monitoring of inflammatory processesand associated diseases. For the evaluation of Relative Riskfor Cardiovascular Disease, a High Sensitivity CRP (HSCRP)should be ordered. Estimated GFR (MDRD) Amer 93 mL/min >60 [facility] Comment on above: GFR Calc Estimated GFR (MDRD) Non-Af Amer 77 mL/min >60 [facility] Comment on above: Non- GFR Calc Folate 22.50 ng/mL 3.1-55.4 [facility] Total Iron Binding Capacity 431 ug/dL 250-450 [facility] Tumor Marker Alpha Fetoprotein 7.6 ng/mL 0.0-8.4 [facility] Comment on above: [facility] El ectrochemiluminescence Immunoassay(ECLIA)Values obtained with different assay methods or kits cannotbe used interchangeably. Results cannot be interpreted asabsolute evidence of the presence or absence of malignantdisease.This test is not interpretable in females. VLDL Cholesterol 32 mg/dL 5-40 [facility] RBC Auto (Bld) [#/Vol]Ordere d By: Chris Costello on 02-13-2024 RBC (Bld) [#/Vol] 4.00 10*6/uL 4.6-6.2 [facility] Serum or plasma calcium suzie urement (mass/volume)Ordered By: Chris Costello on 02-13-2024 Calcium [Mass/Vol] 9.5 mg/dL 8.5-10.1 [facility] Serum or plasma creatinine m easurement (mass/volume)Ordered By: Chris Costello on 02-13-2024 Creatinine [Mass/Vol] 1.04 mg/dL 0.70-1.30 [facility] Comment on above: The validity of the calculated GFR & GFRAA in patients over 70 years has not been determined. Clinical correlation is essential. Serum or plasma iron saturat ion measurement (mass fraction)Ordered By: Chris Costello on 02-13-2024 Iron saturation [Mass fraction] 28.1 % 15.0-55.0 [facility] Serum or plasma thiamine phuc surement (mass/volume)Ordered By: Chris Costello on 02-13-2024 Thiamine [Mass/Vol] 114.8 nmol/L 66.5-200.0 [facility] Comment on above: Performed at: [facility] [employer] [address] [id number] Director: Mil Hinton PhD, Phone: [phone] at: [facility] [id number] Director: Bindu Charles MD, Phone: [phone] Serum or plasma thyroid stim ulating hormone (TSH) measurement (units/volume)Ordered By: Chris Costello on 02-13-2024 TSH Qn 1.41 uIU/mL 0.358-3.74 [facility] Serum or plasma urea nitroge n measurement (mass/volume)Ordered By: Chris Costello on 02-13-2024 Urea nitrogen [Mass/Vol] 16 mg/dL 7-18 [facility] Thin prep Papanicolaou smear with manual screeningOrdered By: Chris Costello on 02-13-2024 Thin prep Papanicolaou smear with manual screening 3.8 g/dL 3.2-5.0 [facility] Thin prep Papanicolaou smear with manual screening 64 U/L 15-37 [facility] Thin prep Papanicolaou smear with manual screening 6 5-15 [facility] Whole blood hemoglobin A1c/t otal hemoglobin ratio (mass fraction)Ordered By: Chris Costello on 02-13-2024 HbA1c (Bld) [Mass fraction] 4.6 % 3.8-5.6 [facility] Comment on above: Normal < 5.7 % Predi abetic 5.7 - 6.4 % Diabetic >or= 6.5 % Please note range changes. Absolute lymphocyte countOrd ered By: Chris Costello on 10-24-2023 Lymphocytes Auto (Unsp spec) [#/Vol] 1.67 10*3/uL 0.83-4.51 [facility] Basophil percentageOrdered B y: Chris Costello on 10-24-2023 Ammonia (P) [Moles/Vol] 47.0 umol/L 11-32 [facility] Basophils/100 WBC (Bld) 1.1 % 0-1 [facility] Bilirubin [Mass/Vol] 0.80 mg/dL 0.20-1.00 [facility] Comment on above: For patients on eltr ombopag therapy, use of Dimension Ringold TBIL is not recommended. Chloride [Moles/Vol] 107 mmol/L 98-107 [facility] Eosinophils/100 WBC (Bld) 2.5 % 0-5 [facility] Glucose [Mass/Vol] 122 mg/dL 74-106 [facility] Comment on above: Fasting Glucose resu lt from 100 to 125 mg/dL suggests IMPAIRED HOMEOSTASIS per A.D.A. criteria. Neutrophils (Bld) [#/Vol] 3.7 10*3/uL 2.0-7.7 [facility] Neutrophils/100 WBC (Bld) 59.1 % 47-70 [facility] Potassium [Moles/Vol] 3.9 mmol/L 3.5-5.1 [facility] Protein [Mass/Vol] 8.0 g/dL 6.4-8.2 [facility] Sodium [Moles/Vol] 139 mmol/L 136-145 [facility] WBC (Bld) [#/Vol] 6.3 10*3/uL 4.4-11.0 [facility] Blood erythrocytes count (nu mber/volume)Ordered By: Chris Costello on 10-24-2023 RBC (Bld) [#/Vol] 4.10 10*6/uL 4.6-6.2 [facility] Blood hemoglobin measurement (mass/volume)Ordered By: Chris Costello on 10-24-2023 Hemoglobin (Bld) [Mass/Vol] 13.9 g/dL 13.0-16.5 [facility] Blood lymphocytes/100 leukoc ytesOrdered By: Chris Costello on 10-24-2023 Lymphocytes/100 WBC (Bld) 26.3 % 19-41 [facility] Blood monocytes/100 leukocyt esOrdered By: Chris Costello on 10-24-2023 Monocytes/100 WBC (Bld) 10.7 % 0-10 [facility] Blood platelet mean volumeOr dered By: Chris Costello on 10-24-2023 Platelet mean volume (Bld) [Entitic vol] 9.4 fL 6.2-12.0 [facility] Determination of erythrocyte mean corpuscular volume (MCV)Ordered By: Chris Costello on 10-24-2023 MCV (RBC) [Entitic vol] 101.5 fL 80-94 [facility] Hematocrit Auto (Bld) [Volum e fraction]Ordered By: Chris Costello on 10-24-2023 Hematocrit (Bld) [Volume fraction] 41.6 % 40-54 [facility] Laboratory - Chemistry and C hemistry - challengeOrdered By: Chris Costello on 10-24-2023 ALP [Catalytic activity/Vol] 105 U/L 45-117 [facility] ALT [Catalytic activity/Vol] 84 U/L 16-61 [facility] CO2 [Moles/Vol] 23.0 mmol/L 21.0-32.0 [facility] Globulin (S) [Mass/Vol] 4.2 g/dL 2.2-4.2 [facility] Urea nitrogen/Creatinine [Mass ratio] 10.8 mg/mg 10-20 [facility] Laboratory - CoagulationOrde red By: Chris Costello on 10-24-2023 PT Coag (PPP) [Time] 15.2 s 11.7-14.9 [facility] Laboratory - Hematology and Cell countsOrdered By: Chris Costello on 10-24-2023 Erythrocyte distribution width (RBC) [Entitic vol] 43.8 fL 35.1-43.9 [facility] Erythrocyte distribution width (RBC) [Ratio] 11.7 % 11.6-14.6 [facility] Immature granulocytes/100 WBC (Bld) 0.300 % 0.0-0.9 [facility] Comment on above: IG% - Immature Granu locytes (promyelocytes, myelocytes and metamyelocytes) > 1% indicates that a LEFT SHIFT is Present. MCH (RBC) [Entitic mass] 33.9 pg 27.0-32.0 [facility] Nucleated RBC/100 WBC (Bld) [Ratio] 0 % [facility] [Mass/Vol]Or dered By: Chris Costello on 10-24-2023 MCHC (RBC) [Mass/Vol] 33.4 g/dL 32-36 [facility] No Panel InformationOrdered By: Chris Costello on 10-24-2023 Anti-Nuclear Antibody Screen Negative Negative [facility] Comment on above: Performed at: [facility] [address] [id number] Director: Mil Hinton PhD, Phone: [phone] Centrome[employer] B Antibody Not Reportable [facility] Estimated GFR (MDRD) Amer 96 mL/min >60 [facility] Comment on above: GFR Calc Estimated GFR (MDRD) Non-Af Amer 79 mL/min >60 [facility] Comment on above: Non- GFR Calc CHANTE-1 Antibody Not Reportable [facility] [employer] Antibody Not Reportable [facility] Platelets bldOrdered By: Delfina Costello on 10-24-2023 Platelets (Bld) [#/Vol] 124 10*3/uL 150-450 [facility] SS-B IgG antibody assayOrder ed By: Chris Costello on 10-24-2023 Sjogrens syndrome-B extractable nuclear IgG Qn (S) Not Reportable [facility] Serum DNA double strand anti body assay (units/volume)Ordered By: Chris Costello on 10-24-2023 DNA double strand Ab Qn (S) Not Reportable [facility] Serum Scl-70 antibody assay (units/volume)Ordered By: Chris Costello on 10-24-2023 SCL-70 extractable nuclear Ab Qn (S) Not Reportable [facility] Serum or plasma C reactive p rotein measurement (mass/volume)Ordered By: Chris Costello on 10-24-2023 CRP [Mass/Vol] mg/L 0.0-3.0 [facility] Comment on above: C-Reactive Protein ( CRP) provides useful information for thediagnosis, therapy and monitoring of inflammatory processesand associated diseases. For the evaluation of Relative Riskfor Cardiovascular Disease, a High Sensitivity CRP (HSCRP)should be ordered. Serum or plasma albumin suzie urement (mass/volume)Ordered By: Chris Costello on 10-24-2023 Albumin [Mass/Vol] 3.8 g/dL 3.2-5.0 [facility] Serum or plasma albumin/glob ulin mass ratioOrdered By: Chris Costello on 10-24-2023 Albumin/Globulin [Mass ratio] 0.9 {ratio} 0.9-2.4 [facility] Serum or plasma gkqog-5-ibty protein tumor marker measurement (units/volume)Ordered By: Chris Costello on 10-24-2023 AFP.tumor marker Qn 5.2 ng/mL 0.0-8.4 [facility] Comment on above: [facility] El ectrochemiluminescence Immunoassay(ECLIA)Values obtained with different assay methods or kits cannotbe used interchangeably. Results cannot be interpreted asabsolute evidence of the presence or absence of malignantdisease.This test is not interpretable in females.Performed at: [facility] [address] [id number] Director: Mil Hinton PhD, Phone: [phone] Serum or plasma calcium suzie urement (mass/volume)Ordered By: Chris Costello on 10-24-2023 Calcium [Mass/Vol] 9.4 mg/dL 8.5-10.1 [facility] Serum or plasma creatinine m easurement (mass/volume)Ordered By: Chris Costello on 10-24-2023 Creatinine [Mass/Vol] 1.02 mg/dL 0.70-1.30 [facility] Comment on above: The validity of the calculated GFR & GFRAA in patients over 70 years has not been determined. Clinical correlation is essential. Serum or plasma urea nitroge n measurement (mass/volume)Ordered By: Chris Costello on 10-24-2023 Urea nitrogen [Mass/Vol] 11 mg/dL 7-18 [facility] Lozano antibody assayOrdered By: Chris Costello on 10-24-2023 Blake extractable nuclear Ab (S) [Titer] Not Reportable [facility] Thin prep Papanicolaou smear with manual screeningOrdered By: Chris Costello on 10-24-2023 Thin prep Papanicolaou smear with manual screening 65 U/L [facility] Thin prep Papanicolaou smear with manual screening 9 02-21 [facility] Whole blood international no rmalized ratio (INR)Ordered By: Chris Costello on 10-24-2023 INR Coag (Bld) [Relative time] 1.2 {INR} [facility] CBC W Auto Differential pane l (Bld)on 08-19-2023 Basophils (Bld) [#/Vol] 0.06 10*3/uL Normal <0.11 [facility] Comment on above: Order Comment: Speci men Type: BLOOD SPECIMEN Ordering Facility: [facility] Address: [address] [place] [address] Performed By: #### 5 7021-8 #### [facility] CLIA [id number] [address] [place] [address] [place] Basophils/100 WBC (Bld) 0.9 % Normal [facility] Comment on above: Order Comment: Speci men Type: BLOOD SPECIMEN Ordering Facility: [facility] Address: [address] [place] [address] Performed By: #### 5 7021-8 #### [facility] CLIA [id number] [address] [place] [address] [place] Differential cell count method Nom (Bld) Auto Normal [facility] Comment on above: Order Comment: Speci men Type: BLOOD SPECIMEN Ordering Facility: [facility] Address: [address] [place] [address] Performed By: #### 5 7021-8 #### [facility] CLIA [id number] [address] [place] [address] [place] Eosinophils (Bld) [#/Vol] 0.04 10*3/uL Normal <0.46 [facility] Comment on above: Order Comment: Speci men Type: BLOOD SPECIMEN Ordering Facility: [facility] Address: [address] [place] [address] Performed By: #### 5 7021-8 #### [facility] CLIA [id number] [address] [place] [address] [place] Eosinophils/100 WBC (Bld) 0.6 % Normal [facility] Comment on above: Order Comment: Speci men Type: BLOOD SPECIMEN Ordering Facility: [facility] Address: [address] [place] [address] Performed By: #### 5 7021-8 #### [facility] CLIA [id number] [address] [place] [address] [place] Erythrocyte distribution width (RBC) [Ratio] 13.8 % Normal 11.5-15.0 [facility] Comment on above: Order Comment: Speci men Type: BLOOD SPECIMEN Ordering Facility: [facility] Address: [address] [place] [address] Performed By: #### 5 7021-8 #### [id number] [address] [place] [address] [place] Hematocrit (Bld) [Volume fraction] 38.3 % Low 39.0-51.0 [facility] Comment on above: Order Comment: Speci men Type: BLOOD SPECIMEN Ordering Facility: [facility] Address: [address] [place] [address] Performed By: #### 5 7021-8 #### [facility] [id number] [address] [place] [address] [place] Hemoglobin (Bld) [Mass/Vol] 13.5 g/dL Normal 13.0-17.0 [facility] Comment on above: Order Comment: Speci men Type: BLOOD SPECIMEN Ordering Facility: [facility] Address: [address] [place] [address] Performed By: #### 5 7021-8 #### [facility] CLIA [id number] [address] [place] [address] [place] Immature granulocytes (Bld) [#/Vol] 10*3/uL Normal <0.10 [facility] Comment on above: Order Comment: Speci men Type: BLOOD SPECIMEN Ordering Facility: [facility] Address: [address] [place] [address] Performed By: #### 5 7021-8 #### [facility] CLIA [id number] [address] [place] [address] [place] Immature granulocytes/100 WBC (Bld) 0.3 % Normal [facility] Comment on above: Order Comment: Speci men Type: BLOOD SPECIMEN Ordering Facility: [facility] Address: [address] [place] [address] Performed By: #### 5 7021-8 #### [facility] CLIA [id number] [address] [place] [address] [place] Lymphocytes (Bld) [#/Vol] 1.45 10*3/uL Normal 1.00-4.00 [facility] Comment on above: Order Comment: Speci men Type: BLOOD SPECIMEN Ordering Facility: [facility] Address: [address] [place] [address] Performed By: #### 5 7021-8 #### [facility] CLIA [id number] [address] [place] [address] [place] Lymphocytes/100 WBC (Bld) 21.0 % Normal [facility] Comment on above: Order Comment: Speci men Type: BLOOD SPECIMEN Ordering Facility: [facility] Address: [address] [place] [address] Performed By: #### 5 7021-8 #### [id number] [address] [place] [address] [place] MCH (RBC) [Entitic mass] 34.7 pg High 26.0-34.0 [facility] Comment on above: Order Comment: Speci men Type: BLOOD SPECIMEN Ordering Facility: [facility] Address: [address] [place] [address] Performed By: #### 5 7021-8 #### [facility] CLIA [id number] [address] [place] [address] [place] MCHC (RBC) [Mass/Vol] 35.2 g/dL Normal 30.5-36.0 [facility] Comment on above: Order Comment: Speci men Type: BLOOD SPECIMEN Ordering Facility: [facility] Address: [address] [place] [address] Performed By: #### 5 7021-8 #### [facility] CLIA [id number] [address] [place] [address] [place] MCV (RBC) [Entitic vol] 98.5 fL Normal 80.0-100.0 [facility] Comment on above: Order Comment: Speci men Type: BLOOD SPECIMEN Ordering Facility: [facility] Address: [address] [place] [address] Performed By: #### 5 7021-8 #### [facility] CLIA [id number] [address] [place] [address] [place] Monocytes (Bld) [#/Vol] 0.74 10*3/uL Normal <0.87 [facility] Comment on above: Order Comment: Speci men Type: BLOOD SPECIMEN Ordering Facility: [facility] Address: [address] [place] [address] Performed By: #### 5 7021-8 #### [facility] CLIA [id number] [address] [place] [address] [place] Monocytes/100 WBC (Bld) 10.7 % Normal [facility] Comment on above: Order Comment: Speci men Type: BLOOD SPECIMEN Ordering Facility: [facility] Address: [address] [place] [address] Performed By: #### 5 7021-8 #### [facility] CLIA [id number] [address] [place] [address] [place] Neutrophils (Bld) [#/Vol] 4.58 10*3/uL Normal 1.45-7.50 [facility] Comment on above: Order Comment: Speci men Type: BLOOD SPECIMEN Ordering Facility: [facility] Address: [address] [place] [address] Performed By: #### 5 7021-8 #### [facility] CLIA [id number] [address] [place] [address] [place] Neutrophils/100 WBC (Bld) 66.5 % Normal [facility] Comment on above: Order Comment: Speci men Type: BLOOD SPECIMEN Ordering Facility: [facility] Address: [address] [place] [address] Performed By: #### 5 7021-8 #### [facility] CLIA [id number] [address] [place] [address] [place] Nucleated RBC (Bld) [#/Vol] 10*3/uL Normal <0.01 [facility] Comment on above: Order Comment: Speci men Type: BLOOD SPECIMEN Ordering Facility: [facility] Address: [address] [place] [address] Performed By: #### 5 7021-8 #### [facility] CLIA [id number] [address] [place] [address] [place] Nucleated RBC/100 WBC (Bld) [Ratio] 0.0 /100 WBC Normal [facility] Comment on above: Order Comment: Speci men Type: BLOOD SPECIMEN Ordering Facility: [facility] Address: [address] [place] [address] Performed By: #### 5 7021-8 #### [facility] CLIA [id number] [address] [place] [address] [place] Platelet mean volume (Bld) [Entitic vol] 9.7 fL Normal 9.0-12.7 [facility] Comment on above: Order Comment: Speci men Type: BLOOD SPECIMEN Ordering Facility: [facility] Address: [address] [place] [address] Performed By: #### 5 7021-8 #### [facility] CLIA [id number] [address] [place] [address] [place] Platelets (Bld) [#/Vol] 137 10*3/uL Low 150-400 [facility] Comment on above: Order Comment: Speci men Type: BLOOD SPECIMEN Ordering Facility: [facility] Address: [place] [address] Performed By: #### 5 7021-8 #### [facility] CLIA [id number] [address] [place] [address] [place] RBC (Bld) [#/Vol] 3.89 10*6/uL Low 4.20-6.00 [facility] Comment on above: Order Comment: Speci men Type: BLOOD SPECIMEN Ordering Facility: [facility] Address: [place] [address] Performed By: #### 5 7021-8 #### [facility] CLIA [id number] [address] [place] [address] [place] WBC (Bld) [#/Vol] 6.89 10*3/uL Normal 3.70-11.00 [facility] Comment on above: Order Comment: Speci men Type: BLOOD SPECIMEN Ordering Facility: [facility] Address: [address] [place] [address] Performed By: #### 5 7021-8 #### [facility] CLIA [id number] [address] [place] [address] [place] CELIAC SCREENon 08-19-2023 GLIAD DEAMIDATED IGA QUAL Negative Normal Negative, Test not Indicated [facility] Comment on above: Order Comment: Speci men Type: BLOOD SPECIMEN Ordering Facility: [facility] Address: [address] [place] [address] Result Comment: This is used as an aid in diagnosis of celiac disease. Clinical correlation is required. The following results were obtained with an Inova QUANTA Lite Gliadin IgA ARTURO Gliadin. Gliadin IgA values obtained with different manufacturers' assay methods may not be used interchangeably. The magnitude of the reported IgA levels cannot be correlated to an endpoint titer. Performed By: #### L [id number] #### [facility] CLIA [id number] [address] [place] [address] [place] Gliadin peptide IgA Qn (S) 6 Units Normal <20 [facility] Comment on above: Order Comment: Speci men Type: BLOOD SPECIMEN Ordering Facility: [facility] Address: [address] [place] [address] Performed By: #### L [id number] #### [facility] CLIA [id number] [address] [place] [address] [place] INTERPRETATION No serological evide nce of celiac disease, however, if celiac disease is clinically suspected and patient is not on gluten-free diet, histological diagnosis may be considered. HLA testing may help with risk assessment. Normal [facility] Comment on above: Order Comment: Speci [facility] Type: BLOOD SPECIMEN Ordering Facility: [facility] Address: [address] [place] [address] Performed By: #### L [id number] #### [facility] CLIA [id number] [address] [place] [address] [place] TRANSGLUTAMINASE IGA ABS INTERPRETATION Negative Normal Negative [facility] Comment on above: Order Comment: Speci men Type: BLOOD SPECIMEN Ordering Facility: [facility] Address: [address] [place] [address] Result Comment: The following results were obtained with Inova QUANTA Lite R h-tTG IgA ARTURO.???R h-tTG IgA values obtained with different manufacturers' assay methods may not be used interchangeably. The magnitude of the reported IgA levels cannot be corelated to an endpoint???concentration. This is used as an aid in diagnosis of celiac disease. Clinical correlation is required. Performed By: #### L [id number] #### [facility] CLIA [id number] [address] [place] [address] [place] tTG IgA Qn (S) <2 Normal <4 [facility] Comment on above: Order Comment: Speci men Type: BLOOD SPECIMEN Ordering Facility: [facility] Address: [address] [place] [address] Performed By: #### L [id number] #### [facility] CLIA [id number] [address] [place] [address] [place] CRP SerPl-mCncon 08-19-2023 CRP [Mass/Vol] mg/L Normal <0.9 [facility] Comment on above: Order Comment: Speci men Type: BLOOD SPECIMEN Ordering Facility: [facility] Address: [address] [place] [address] Performed By: #### 3 016-3, 1988-02 #### [facility] CLIA [id number] [address] [place] [address] [place] Clostridium difficile detect ion by polymerase chain reactionOrdered By: Juarez Mcdowell on 08-19-2023 C. difficile DNA NATALIIA+probe Ql (Unsp spec) [facility] Comprehensive metabolic 2000 panelon 08-19-2023 Albumin [Mass/Vol] 4.5 g/dL Normal 3.9-4.9 [facility] Comment on above: Order Comment: Speci men Type: BLOOD SPECIMEN Ordering Facility: [facility] Address: [address] [place] [address] Performed By: #### 2 4323-8 #### [facility] CLIA [id number] [address] [place] [address] [place] ALP [Catalytic activity/Vol] 130 U/L High 38-113 [facility] Comment on above: Order Comment: Speci men Type: BLOOD SPECIMEN Ordering Facility: [facility] Address: [address] [place] [address] Performed By: #### 2 4323-8 #### [facility] CLIA [id number] [address] [place] [address] [place] ALT [Catalytic activity/Vol] 71 U/L High 10-54 [facility] Comment on above: Order Comment: Speci men Type: BLOOD SPECIMEN Ordering Facility: [facility] Address: [address] [place] [address] Performed By: #### 2 4323-8 #### [facility] CLIA [id number] [address] [place] [address] [place] Anion gap [Moles/Vol] 15 mmol/L Normal 9-18 [facility] Comment on above: Order Comment: Speci men Type: BLOOD SPECIMEN Ordering Facility: [facility] Address: [address] [place] [address] Performed By: #### 2 4323-8 #### [facility] CLIA [id number] [address] [place] [address] [place] AST [Catalytic activity/Vol] 75 U/L High 14-40 [facility] Comment on above: Order Comment: Speci men Type: BLOOD SPECIMEN Ordering Facility: [facility] Address: [address] [place] [address] Performed By: #### 2 4323-8 #### [facility] CLIA [id number] [address] [place] [address] [place] Bilirubin [Mass/Vol] 0.6 mg/dL Normal 0.2-1.3 [facility] Comment on above: Order Comment: Speci men Type: BLOOD SPECIMEN Ordering Facility: [facility] Address: [address] [place] [address] Performed By: #### 2 4323-8 #### [facility] CLIA [id number] [address] [place] [address] [place] Calcium [Mass/Vol] 9.6 mg/dL Normal 8.5-10.2 [facility] Comment on above: Order Comment: Speci men Type: BLOOD SPECIMEN Ordering Facility: [facility] Address: [address] [place] [address] Performed By: #### 2 4323-8 #### [facility] CLIA [id number] [address] [place] [address] [place] Chloride [Moles/Vol] 105 mmol/L Normal 97-105 [facility] Comment on above: Order Comment: Speci men Type: BLOOD SPECIMEN Ordering Facility: [facility] Address: [address] [place] [address] Performed By: #### 2 4323-8 #### [facility] CLIA [id number] [address] [place] [address] [place] CO2 [Moles/Vol] 19 mmol/L Low 22-30 [facility] Comment on above: Order Comment: Speci men Type: BLOOD SPECIMEN Ordering Facility: [facility] Address: [address] [place] [address] Performed By: #### 2 4323-8 #### [facility] CLIA [id number] [address] [place] [address] [place] Creatinine [Mass/Vol] 0.93 mg/dL Normal 0.73-1.22 [facility] Comment on above: Order Comment: Speci men Type: BLOOD SPECIMEN Ordering Facility: [facility] Address: [address] [place] [address] Performed By: #### 2 4323-8 #### [facility] [id number] [address] [place] [address] [place] Creatinine and Glomerular filtration rate.predicted panel (S/P/Bld) 94 mL/min/1.73m??? Normal >=60 [facility] Comment on above: Order Comment: Speci men Type: BLOOD SPECIMEN Ordering Facility: [facility] Address: [address] [place] [address] Result Comment: Kourtney mated Glomerular Filtration Rate (eGFR) is calculated using the 2020 CKD-EPI creatinine equation. This equation utilizes serum creatinine, sex, and age as parameters. The creatinine assay has traceable calibration to isotope dilution-mass spectrometry. Refer to KDIGO guidelines for clinical interpretation. In patients with unstable renal function, e.g. those with acute kidney injury, the eGFR may not accurately reflect actual GFR. Performed By: #### 2 4323-8 #### [facility] CLIA [id number] [address] [place] [address] [place] Glucose [Mass/Vol] 116 mg/dL High 74-99 [facility] Comment on above: Order Comment: [place] Type: BLOOD SPECIMEN Ordering Facility: [facility] Address: [address] [place] [address] Result Comment: The [place] [employer] (ADA) provides guidance for cutoff values for fasting glucose and random glucose. The ADA defines fasting as no caloric intake for at least 8 hours. Fasting plasma glucose results between 100 to 125 mg/dL indicate increased risk for diabetes (prediabetes). Fasting plasma glucose results greater than or equal to 126 mg/dL meet the criteria for diagnosis of diabetes. In the absence of unequivocal hyperglycemia, results should be confirmed by repeat testing. In a patient with classic symptoms of hyperglycemia or hyperglycemic crisis, random plasma glucose results greater than or equal to 200 mg/dL meet the criteria for diagnosis of diabetes. Reference: Standards of Medical Care in Diabetes 2016, [place] [employer]. Diabetes Care. 2016.39(Suppl 1). Performed By: #### 2 4323-8 #### [facility] CLIA [id number] [address] [place] [address] [place] Potassium [Moles/Vol] 3.9 mmol/L Normal 3.7-5.1 [facility] Comment on above: Order Comment: [place] Type: BLOOD SPECIMEN Ordering Facility: [facility] Address: [address] [place] [address] Performed By: #### 2 4323-8 #### [facility] CLIA [id number] [address] [place] [address] [place] Protein [Mass/Vol] 7.7 g/dL Normal 6.3-8.0 [facility] Comment on above: Order Comment: Speci men Type: BLOOD SPECIMEN Ordering Facility: [facility] Address: [address] [place] [address] Performed By: #### 2 4323-8 #### [facility] CLIA [id number] [address] [place] [address] [place] Sodium [Moles/Vol] 139 mmol/L Normal 136-144 [facility] Comment on above: Order Comment: Speci men Type: BLOOD SPECIMEN Ordering Facility: [facility] Address: [address] [place] [address] Performed By: #### 2 4323-8 #### [facility] CLIA [id number] [address] [place] [address] [place] Urea nitrogen [Mass/Vol] 20 mg/dL Normal 9-24 [facility] Comment on above: Order Comment: Speci men Type: BLOOD SPECIMEN Ordering Facility: [facility] Address: [address] [place] [address] Performed By: #### 2 4323-8 #### [facility] CLIA [id number] [address] [place] [address] [place] IgA SerPl-mCncon 08-19-2023 IgA [Mass/Vol] 492 mg/dL High 70-400 [facility] Comment on above: Order Comment: Speci men Type: BLOOD SPECIMEN Ordering Facility: [facility] Address: [address] [place] [address] Performed By: #### 2 458-8 #### [facility] CLIA [id number] [address] [place] [address] [place] No Panel InformationOrdered By: Juarez Mcdowell on 08-19-2023 Giardia Antigen (TATIANA) [facility] Stool Pancreatic Elastase 249 >200 [facility] Comment on above: Result Units: ug Jennifer st./g Severe Pancreatic Insufficiency: <100 Moderate Pancreatic Insufficiency: 100 - 200 Normal: >200Performed at: - [id number] [place], [place] [id number] Director: Bindu Charles MD, Phone: [phone] Stool Calprotectin 68 ug/g 0-120 [facility] Comment on above: Concentration Interp retation Follow-Up< 5 - 50 ug/g Normal None>50 -120 ug/g Borderline Re-evaluate in 4-6 weeks >120 ug/g Abnormal Repeat as clinically indicatedPerformed at: BN - [facility] [address] [id number] Director: Bindu Charles MD, Phone: [phone] Ova and parasitesOrdered By: Juarez Mcdowell on 08-19-2023 Ova and parasites identified LM Nom (Unsp spec) [facility] PT panel Coag (PPP)on 2022 INR Coag (PPP) [Relative time] 1.3 {INR} Normal 0.9-1.3 [facility] Comment on above: Order Comment: Speci men Type: BLOOD SPECIMEN Ordering Facility: [facility] Address: [address] [place] [address] Result Comment: Darlene min K Antagonist (VKA) Therapeutic Range: INR 2 to 3 (Target INR of 2.5) Note: For patients treated with VKA drugs, such as warfarin, the [place] [employer] 2012 Guideline recommends a therapeutic INR range of 2 to 3 (target INR of 2.5). This recommendation includes high-risk patients with antiphospholipid syndrome with previous arterial or venous thromboembolism, current-generation mechanical or bioprosthetic aortic heart valve replacement. Note: Patients with mechanical aortic valve replacement and additional risk factors for thromboembolic events (atrial fibrillation, previous thromboembolism, LV dysfunction, hypercoagulable conditions) or an older generation mechanical AVR (i.e., ball in-Cage) or any mechanical MVR should have a INR therapeutic range of 2.5 to 3.5 (target INR of 3). Marly GH, et al. Chest 2012, 141:7S-47S Ale HARKINS et al. [facility] 2017, 70: 252-289 Performed By: #### 3 4528-0 #### [facility] [id number] [address] [place] [address] [place] PT Coag (PPP) [Time] 12.9 s Normal <13.1 [facility] Comment on above: Order Comment: Specamanda men Type: BLOOD SPECIMEN Ordering Facility: [facility] Address: [address] [place] [address] Performed By: #### 3 4528-0 #### [facility] CLIA [id number] [address] [place] [address] [place] Stool enteric pathogen panel by probe and target amplification methodOrdered By: Juarez Mcdowell on 08-19-2023 Gastrointestinal pathogens panel NATALIIA+probe (Stl) [facility] Stool lactoferrin detection by immunoassayOrdered By: Juarez Mcdowell on 08-19-2023 Lactoferrin IA Ql (Stl) [facility] TSH SerPl-aCncon 08-19-2023 TSH Qn 2.170 m[IU]/L Normal 0.270-4.200 [facility] Comment on above: Order Comment: Speci men Type: BLOOD SPECIMEN Ordering Facility: [facility] Address: [address] [place] [address] Performed By: #### 3 016-3, 1988-02 #### [facility] CLIA [id number] [address] [place] CNOVon 08-18-2023 CNOV Office Visit ([facility] ) -------- MARIELY BHANDARI ([id number]) 1965 M Date Time Provider Department 08/18/23 4:00 PM CORINA STOLL During your visit today, we recorded the following information about you: Pulse Blood pressure Weight Height 89/minute 138/84 100.1 kg 1.753 m Coirna Stoll MD 08/20/2023 4:41 PM Addendum CHIEF COMPLAINT: Patient presents with: Liver Disease: Cirrhosis stage 4, full workup, [facility] Mariely Bhandari is a 58 year old male who presents for Liver Disease (Cirrhosis stage 4, full workup, [facility] HPI 58 YOM with alcoholic hepatitis and likeley cirrhosis MELD 3.0 11. Per previous notes He drinks 12 beers per day, not interested in quitting or cutting back. Liver elastography in Oct 2022 with 19 kPa. (F4) Comprehensive workup done in [place]. EtOH use disorder. Associated with diarrhea when he drinks. For second opinion. He knows that he needs to get help to stop drinking. AST and ALT x2-3 ULN. EGD and colonoscopy April 2023 ([facility]) Impression: - Non-severe reflux esophagitis. - Portal [...] LIVER BIOPSY 02/25/2023 results consistent with cirrhosis, [facility] LIVER ELASTOGRAPHY 10/12/2022 F 3-4, [facility] REPAIR ROTATOR CUFF,ACUTE Right Allergies: ALLERGIES Not [...] DIFF; Future - COMP METABOLIC PANEL; Future (more content not included)... Normal [facility] Absolute lymphocyte countOrd ered By: Juarez Mcdowell on 07-15-2023 Lymphocytes Auto (Unsp spec) [#/Vol] 1.74 10*3/uL 0.83-4.51 [facility] Basophil percentageOrdered B y: Juarez Mcdowell on 07-15-2023 Ammonia (P) [Moles/Vol] 55.0 umol/L 11-32 [facility] Basophils/100 WBC (Bld) 1.3 % 0-1 [facility] Bilirubin [Mass/Vol] 0.70 mg/dL 0.20-1.00 [facility] Comment on above: For patients on eltr ombopag therapy, use of Dimension Ringold TBIL is not recommended. Chloride [Moles/Vol] 102 mmol/L 98-107 [facility] Cholesterol [Mass/Vol] 205 mg/dL <200 [facility] Comment on above: <200 mg/dL Desirable 200-240 mg/dL Borderline >240 mg/dL High Risk Eosinophils/100 WBC (Bld) 0.7 % 0-5 [facility] Glucose [Mass/Vol] 131 mg/dL 74-106 [facility] Comment on above: Fasting Glucose resu lt greater than or equal to 126 mg/dL suggests DIABETES MELLITUS per A.D.A. criteria. LDH [Catalytic activity/Vol] 226 U/L 87-241 [facility] Comment on above: Slight Hemolysis, Re sult may be falsely increased. Neutrophils (Bld) [#/Vol] 4.6 10*3/uL 2.0-7.7 [facility] Neutrophils/100 WBC (Bld) 63.8 % 47-70 [facility] Potassium [Moles/Vol] 4.3 mmol/L 3.5-5.1 [facility] Comment on above: Slight Hemolysis, Re sult may be falsely increased. Protein [Mass/Vol] 8.6 g/dL 6.4-8.2 [facility] Sodium [Moles/Vol] 135 mmol/L 136-145 [facility] Triglyceride [Mass/Vol] 932 mg/dL <199 [facility] Comment on above: The drugs N-Acetylcy steine and Metamizole may falsely depress this assay. TRIGLYCERIDE IS GREATER THAN 400 mg/dL. LDL RESULT IS INVALID AND WILL NOT BE REPORTED.Serum Triglycerides Reference Interval Normal <150 mg/dL Borderline high 150 - 199 mg/dL High 200 - 499 mg/dL Very High > or = 500 mg/dL WBC (Bld) [#/Vol] 7.2 10*3/uL 4.4-11.0 [facility] Blood erythrocytes count (nu mber/volume)Ordered By: Juarez Mcdowell on 07-15-2023 RBC (Bld) [#/Vol] 4.31 10*6/uL 4.6-6.2 [facility] Blood hemoglobin measurement (mass/volume)Ordered By: Juarez Mcdowell on 07-15-2023 Hemoglobin (Bld) [Mass/Vol] 14.9 g/dL 13.0-16.5 [facility] Blood lymphocytes/100 leukoc ytesOrdered By: Juarez Mcdowell on 07-15-2023 Lymphocytes/100 WBC (Bld) 24.2 % 19-41 [facility] Blood monocytes/100 leukocyt esOrdered By: Juarez Mcdowell on 07-15-2023 Monocytes/100 WBC (Bld) 9.7 % 0-10 [facility] Blood platelet mean volumeOr dered By: Juarez Mcdowell on 07-15-2023 Platelet mean volume (Bld) [Entitic vol] 9.6 fL 6.2-12.0 [facility] Determination of erythrocyte mean corpuscular volume (MCV)Ordered By: Juarez Mcdowell on 07-15-2023 MCV (RBC) [Entitic vol] 100.0 fL 80-94 [facility] Erythrocyte sedimentation ra teOrdered By: Juarez Mcdowell on 07-15-2023 ESR (Bld) [Velocity] 5 mm/h 0-20 [facility] Hematocrit Auto (Bld) [Volum e fraction]Ordered By: Juarez Mcdowell on 07-15-2023 Hematocrit (Bld) [Volume fraction] 43.1 % 40-54 [facility] INR in Blood by Coagulation assayOrdered By: Juarez Mcdowell on 07-15-2023 INR Coag (Bld) [Relative time] 1.3 {INR} [facility] Laboratory - Chemistry and C hemistry - challengeOrdered By: Juarez Mcdowell on 07-15-2023 ALP [Catalytic activity/Vol] 123 U/L 45-117 [facility] ALT [Catalytic activity/Vol] 131 U/L 16-61 [facility] CO2 [Moles/Vol] 26.0 mmol/L 21.0-32.0 [facility] Globulin (S) [Mass/Vol] 4.7 g/dL 2.2-4.2 [facility] Urea nitrogen/Creatinine [Mass ratio] 14.3 mg/mg 10-20 [facility] Laboratory - CoagulationOrde red By: Juarez Mcdowell on 07-15-2023 PT Coag (PPP) [Time] 16.6 s 11.7-14.9 [facility] Laboratory - Hematology and Cell countsOrdered By: Juarez Mcdowell on 07-15-2023 Erythrocyte distribution width (RBC) [Entitic vol] 45.9 fL 35.1-43.9 [facility] Erythrocyte distribution width (RBC) [Ratio] 12.4 % 11.6-14.6 [facility] Immature granulocytes/100 WBC (Bld) 0.300 % 0.0-0.9 [facility] Comment on above: IG% - Immature Granu locytes (promyelocytes, myelocytes and metamyelocytes) > 1% indicates that a LEFT SHIFT is Present. MCH (RBC) [Entitic mass] 34.6 pg 27.0-32.0 [facility] Nucleated RBC/100 WBC (Bld) [Ratio] 0 % 0-5 [facility] MCHC Auto (RBC) [Mass/Vol]Or dered By: Juarez Mcdowell on 07-15-2023 MCHC (RBC) [Mass/Vol] 34.6 g/dL 32-36 [facility] No Panel InformationOrdered By: Juarez Mcdowell on 07-15-2023 Estimated GFR (MDRD) Amer 80 mL/min >60 [facility] Comment on above: GFR Calc Estimated GFR (MDRD) Non-Af Amer 66 mL/min >60 [facility] Comment on above: Non- GFR Calc Platelets bldOrdered By: Walter Mcdowell on 07-15-2023 Platelets (Bld) [#/Vol] 170 10*3/uL 150-450 [facility] Serum or plasma C reactive p rotein measurement (mass/volume)Ordered By: Juarez Mcdowell on 07-15-2023 CRP [Mass/Vol] mg/L 0.0-3.0 [facility] Comment on above: C-Reactive Protein ( CRP) provides useful information for thediagnosis, therapy and monitoring of inflammatory processesand associated diseases. For the evaluation of Relative Riskfor Cardiovascular Disease, a High Sensitivity CRP (HSCRP)should be ordered. Serum or plasma albumin suzie urement (mass/volume)Ordered By: Juarez Mcdowell on 07-15-2023 Albumin [Mass/Vol] 3.9 g/dL 3.2-5.0 [facility] Serum or plasma albumin/glob ulin mass ratioOrdered By: Juarez Mcdowell on 07-15-2023 Albumin/Globulin [Mass ratio] 0.8 {ratio} 0.9-2.4 [facility] Serum or plasma calcium suzie urement (mass/volume)Ordered By: Juarez Mcdowell on 07-15-2023 Calcium [Mass/Vol] 9.3 mg/dL 8.5-10.1 [facility] Serum or plasma cholesterol in HDL measurement (mass/volume)Ordered By: Juarez Mcdowell on 07-15-2023 Cholesterol in HDL [Mass/Vol] 42 mg/dL >40 [facility] Comment on above: The drugs N-Acetylcy steine and Metamizole may falsely depress this assay. Reference Range HDL <40 mg/dL Low HDL Cholesterol HDL >or= 60 mg/dL High HDL Cholesterol Serum or plasma cholesterol in VLDL measurement (mass/volume)Ordered By: Juarez Mcdowell on 07-15-2023 Cholesterol in VLDL [Mass/Vol] TNP [facility] Comment on above: Test not performed Serum or plasma creatinine m easurement (mass/volume)Ordered By: Juarez Mcdowell on 07-15-2023 Creatinine [Mass/Vol] 1.19 mg/dL 0.70-1.30 [facility] Comment on above: The validity of the calculated GFR & GFRAA in patients over 70 years has not been determined. Clinical correlation is essential. Serum or plasma low density lipoprotein (LDL) cholesterol measurement (mass/volume)Ordered By: Juarez Mcdowell on 07-15-2023 Cholesterol in LDL [Mass/Vol] TNP [facility] Comment on above: Test not performed Serum or plasma urea nitroge n measurement (mass/volume)Ordered By: Juarez Mcdowell on 07-15-2023 Urea nitrogen [Mass/Vol] 17 mg/dL 7-18 [facility] Thin prep Papanicolaou smear with manual screeningOrdered By: Juarez Mcdowell on 07-15-2023 Thin prep Papanicolaou smear with manual screening 116 U/L 15 [facility] Comment on above: Slight Hemolysis, Re sult may be falsely increased. Thin prep Papanicolaou smear with manual screening 7 5-15 [facility] Basophil percentageOrdered B y: Juarez Mcdowell on 04-11-2023 Creatinine [Mass/Vol] 1.4 mg/dL 0.70-1.30 [facility] Laboratory - Chemistry and C hemistry - challengeOrdered By: Juarez Mcdwoell on 04-11-2023 GFR/1.73 sq M.predicted among non-blacks MDRD (S/P/Bld) [Vol rate/Area] 53.0000 mL/min/{1.73_m2} >60 [facility] INR in Blood by Coagulation assayOrdered By: Jaylene Win on 02-25-2023 INR Coag (Bld) [Relative time] 1.4 {INR} [facility] Laboratory - CoagulationOrde red By: Jaylene Win on 02-25-2023 aPTT Coag (Bld) [Time] 30.1 s 24.1-36.2 [facility] PT Coag (PPP) [Time] 17.0 s 11.7-14.9 [facility] Platelets bldOrdered By: Majo Win on 02-25-2023 Platelets (Bld) [#/Vol] 154 10*3/uL 150-450 [facility] Atypical perinuclear antineu trophil cytoplasmic antibodies measurementOrdered By: Jaylene Win on 02-07-2023 Neutrophil cytoplasmic Ab.perinuclear.atypical IF (S) [Titer] <1:20 titer Neg:<1:20 [facility] Comment on above: Please Note: Specime n is lipemic.The atypical pANCA pattern has been observed in asignificant percentage of patients with ulcerative colitis,primary sclerosing cholangitis and autoimmune hepatitis. Basophil percentageOrdered B y: Jaylene Win on 02-07-2023 Ammonia (P) [Moles/Vol] 129.0 umol/L 11-32 [facility] Basophil percentage < 0.2 AI 0.0-0.9 [facility] LDH [Catalytic activity/Vol] 316 U/L 87-241 [facility] Comment on above: Moderate Hemolysis, Result may be falsely increased. Erythrocyte sedimentation ra teOrdered By: Jaylene Win on 02-07-2023 ESR (Bld) [Velocity] 15 mm/h 0-20 [facility] HIV 1 and HIV-2 antibody ass ay with HIV-1 p24 antigen detectionOrdered By: Jaylene Win on 02-07-2023 HIV 1+2 Ab+HIV1 p24 Ag IA Ql Non-Reactive Nonreactive [facility] INR in Blood by Coagulation assayOrdered By: Jaylene Win on 02-07-2023 INR Coag (Bld) [Relative time] 1.3 {INR} [facility] Laboratory - CoagulationOrde red By: Jaylene Win on 02-07-2023 PT Coag (PPP) [Time] 16.2 s 11.7-14.9 [facility] No Panel InformationOrdered By: Jaylene Win on 02-07-2023 Centromere B Antibody <0.2 AI 0.0-0.9 [facility] Ceruloplasmin 14.0 mg/dL 16.0-31.0 [facility] Haptoglobin 99 mg/dL 29-370 [facility] Comment on above: Performed at: - [facility] [address] [id number] Director: Mil Hinton PhD, Phone: [phone] at: - [facility] [id number] Director: Bindu Charles MD, Phone: [phone] Hepatitis A IgM Antibody Negative Negative [facility] Hepatitis B Core IgM Antibody Negative Negative [facility] Hepatitis C Antibody (EIA) Non-Reactive Non Reactive [facility] Hepatitis C Antibody Comment Comment . [facility] Comment on above: Not infected with HC V unless early or acute infection issuspected (which may be delayed in an immunocompromisedindividual), or other evidence exists to indicate HCVinfection. [employer] Antibody <0.2 AI 0.0-0.9 [facility] Serum DNA double strand anti body assay (units/volume)Ordered By: Jaylene Win on 02-07-2023 DNA double strand Ab Qn (S) 1 [IU]/mL 0-9 [facility] Comment on above: Negative <5 Equivoca l 5 - 9 Positive >9 Serum Chante-1 antibody assay (u nits/volume)Ordered By: Jaylene Win on 02-07-2023 Chante-1 extractable nuclear Ab Qn (S) <0.2 AI 0.0-0.9 [facility] Serum Scl-70 extractable nuc lear antibody assay (units/volume)Ordered By: Jaylene Win on 02-07-2023 SCL-70 extractable nuclear Ab Qn (S) <0.2 AI 0.0-0.9 [facility] Serum Lozano extractable nucl ear antibody detectionOrdered By: Jaylene Win on 02-07-2023 Lozano extractable nuclear Ab Ql (S) <0.2 AI 0.0-0.9 [facility] Serum classic neutrophil cyt oplasmic antibody assay (units/volume)Ordered By: Jaylene Win on 02-07-2023 Neutrophil cytoplasmic Ab.classic Qn (S) <1:20 titer Neg:<1:20 [facility] Comment on above: Please Note: Specime n is lipemic. Serum mitochondria antibody detectionOrdered By: Jaylene Win on 02-07-2023 Mitochondria Ab Ql (S) <20.0 Units 0.0-20.0 [facility] Comment on above: Please Note: Specime n is lipemic. Negative 0.0 - 20.0 Equivocal 20.1 - 24.9 Positive >24.9Mitochondrial (M2) Antibodies are found in 90-96% ofpatients with primary biliary cirrhosis.Performed at: [address] [id number] Director: Mil Hinton PhD, Phone: [phone] Serum or plasma C reactive p rotein measurement (mass/volume)Ordered By: Jaylene Win on 02-07-2023 CRP [Mass/Vol] mg/L 0.0-3.0 [facility] Comment on above: C-Reactive Protein ( CRP) provides useful information for thediagnosis, therapy and monitoring of inflammatory processesand associated diseases. For the evaluation of Relative Riskfor Cardiovascular Disease, a High Sensitivity CRP (HSCRP)should be ordered. Serum or plasma actin IgG an tibody assay (units/volume)Ordered By: Jaylene Win on 02-07-2023 Actin IgG Qn 10 Units 0-19 [facility] Comment on above: Please Note: Specime n is lipemic. Negative 0 - 19 Weak positive 20 - 30 Moderate to strong positive >30 Actin Antibodies are found in 52-85% of patients with autoimmune hepatitis or chronic active hepatitis and in 22% of patients with primary biliary cirrhosis. Serum or plasma [id number] protein tumor marker measurement (units/volume)Ordered By: Jaylene Win on 02-07-2023 AFP.tumor marker Qn 7.3 ng/mL 0.0-8.4 [facility] Comment on above: [facility] El ectrochemiluminescence Immunoassay(ECLIA)Values obtained with different assay methods or kits cannotbe used interchangeably. Results cannot be interpreted asabsolute evidence of the presence or absence of malignantdisease.This test is not interpretable in females. Serum or plasma angiotensin converting enzyme measurement (enzymatic activity/volume)Ordered By: Jaylene Win on 02-07-2023 Angiotensin converting enzyme [Catalytic activity/Vol] 120 U/L 14-82 [facility] Serum or plasma hepatitis B virus surface antigen detection by immunoassayOrdered By: Jaylene Win on 02-07-2023 HBV surface Ag IA Ql Negative Negative [facility] Serum perinuclear neutrophil cytoplasmic antibody titer by immunofluorescenceOrdered By: Jaylene Win on 02-07-2023 Neutrophil cytoplasmic Ab.perinuclear IF (S) [Titer] <1:20 titer Neg:<1:20 [facility] Comment on above: Please Note: Specime n is lipemic.The presence of positive fluorescence exhibiting P-ANCA orC-ANCA patterns alone is not specific for the diagnosis ofWegener's Granulomatosis (WG) or microscopic polyangiitis.Decisions about treatment should not be based solely onANCA IFA results. The [employer] ANCA Group Consensusrecommends follow up testing of positive sera with both KY-3 and MPO-ANCA enzyme immunoassays. As many as 5% serumsamples are positive only by EIA. Ref. AM J Clin Jduxxr6661;111:507-513. Thin prep Papanicolaou smear with manual screeningOrdered By: Jaylene Win on 02-07-2023 Thin prep Papanicolaou smear with manual screening 72 ug/dL 69-132 [facility] Comment on above: Detection Limit = 5 Whole blood hemoglobin A1c/t otal hemoglobin ratio (mass fraction)Ordered By: Jaylene Win on 02-07-2023 HbA1c (Bld) [Mass fraction] 5.0 % 3.8-5.6 [facility] Comment on above: Normal < 5.7 % Predi abetic 5.7 - 6.4 % Diabetic >or= 6.5 % Please note range changes. Absolute lymphocyte countOrd ered By: Dr. Chen on 01-31-2023 Lymphocytes Auto (Unsp spec) [#/Vol] 1.65 10*3/uL 0.83-4.51 [facility] Basophil percentageOrdered B y: Dr. Chen on 01-31-2023 Basophils/100 WBC (Bld) 0.9 % 0-1 [facility] Bilirubin [Mass/Vol] 1.00 mg/dL 0.20-1.00 [facility] Comment on above: For patients on eltr ombopag therapy, use of Dimension Ringold TBIL is not recommended. Chloride [Moles/Vol] 104 mmol/L 98-107 [facility] Eosinophils/100 WBC (Bld) 0.9 % 0-5 [facility] Glucose [Mass/Vol] 140 mg/dL 74-106 [facility] Comment on above: Fasting Glucose resu lt greater than or equal to 126 mg/dL suggests DIABETES MELLITUS per A.D.A. criteria. Neutrophils (Bld) [#/Vol] 3.4 10*3/uL 2.0-7.7 [facility] Neutrophils/100 WBC (Bld) 59.5 % 47-70 [facility] Potassium [Moles/Vol] 3.8 mmol/L 3.5-5.1 [facility] Comment on above: Moderate Hemolysis, Result may be falsely increased. Protein [Mass/Vol] 7.6 g/dL 6.4-8.2 [facility] Sodium [Moles/Vol] 130 mmol/L 136-145 [facility] WBC (Bld) [#/Vol] 5.7 10*3/uL 4.4-11.0 [facility] Blood erythrocytes count (nu mber/volume)Ordered By: Dr. Chen on 01-31-2023 RBC (Bld) [#/Vol] 4.13 10*6/uL 4.6-6.2 [facility] Blood hemoglobin measurement (mass/volume)Ordered By: Dr. Chen on 01-31-2023 Hemoglobin (Bld) [Mass/Vol] 14.3 g/dL 13.0-16.5 [facility] Blood lymphocytes/100 leukoc ytesOrdered By: Dr. Chen on 01-31-2023 Lymphocytes/100 WBC (Bld) 29.0 % 19-41 [facility] Blood monocytes/100 leukocyt esOrdered By: Dr. Chen on 01-31-2023 Monocytes/100 WBC (Bld) 9.3 % 0-10 [facility] Blood platelet mean volumeOr dered By: Dr. Chen on 01-31-2023 Platelet mean volume (Bld) [Entitic vol] 10.2 fL 6.2-12.0 [facility] Determination of erythrocyte mean corpuscular volume (MCV)Ordered By: Dr. Chen on 01-31-2023 MCV (RBC) [Entitic vol] 98.8 fL 80-94 [facility] Hematocrit Auto (Bld) [Volum e fraction]Ordered By: Dr. Chen on 01-31-2023 Hematocrit (Bld) [Volume fraction] 40.8 % 40-54 [facility] Laboratory - Chemistry and C hemistry - challengeOrdered By: Dr. Chen on 01-31-2023 ALP [Catalytic activity/Vol] 156 U/L 45-117 [facility] ALT [Catalytic activity/Vol] 130 U/L 16-61 [facility] Amylase [Catalytic activity/Vol] 1550 U/L 15-85 [facility] CO2 [Moles/Vol] 18.0 mmol/L 21.0-32.0 [facility] Globulin (S) [Mass/Vol] 4.3 g/dL 2.2-4.2 [facility] Urea nitrogen/Creatinine [Mass ratio] 17.6 mg/mg 10-20 [facility] Laboratory - Hematology and Cell countsOrdered By: Dr. Chen on 01-31-2023 Erythrocyte distribution width (RBC) [Entitic vol] 44.9 fL 35.1-43.9 [facility] Erythrocyte distribution width (RBC) [Ratio] 12.2 % 11.6-14.6 [facility] Immature granulocytes/100 WBC (Bld) 0.400 % 0.0-0.9 [facility] Comment on above: IG% - Immature Granu locytes (promyelocytes, myelocytes and metamyelocytes) > 1% indicates that a LEFT SHIFT is Present. MCH (RBC) [Entitic mass] 34.6 pg 27.0-32.0 [facility] Nucleated RBC/100 WBC (Bld) [Ratio] 0 % 0-5 [facility] MCHC Auto (RBC) [Mass/Vol]Or dered By: Dr. Chen on 01-31-2023 MCHC (RBC) [Mass/Vol] 35.0 g/dL 32-36 [facility] No Panel InformationOrdered By: Dr. Chen on 01-31-2023 Whole Blood Vitamin B1 Level 163.1 nmol/L 66.5-200.0 [facility] Comment on above: Performed at: - [address] [id number] Director: Bindu Charles MD, Phone: [phone] Estimated GFR (MDRD) Amer 96 mL/min >60 [facility] Comment on above: GFR Calc Estimated GFR (MDRD) Non-Af Amer 79 mL/min >60 [facility] Comment on above: Non- GFR Calc Vitamin D 25-Hydroxy 28.4 ng/mL [facility] Comment on above: Vitamin D 25(OH) Sta tus Range Deficiency <20 ng/mL (50nmol/L) Insufficiency 20 - 30 ng/mL (50 - 75 nmol/L) Sufficiency 30 - 100 ng/mL (75 - 250 nmol/L) Toxicity >100 ng/mL (>250 nmol/L) Platelets bldOrdered By: Dr. Chen on 01-31-2023 Platelets (Bld) [#/Vol] 130 10*3/uL 150-450 [facility] Serum or plasma albumin suzie urement (mass/volume)Ordered By: Dr. Chen on 01-31-2023 Albumin [Mass/Vol] 3.3 g/dL 3.2-5.0 [facility] Serum or plasma albumin/glob ulin mass ratioOrdered By: Dr. Chen on 01-31-2023 Albumin/Globulin [Mass ratio] 0.8 {ratio} 0.9-2.4 [facility] Serum or plasma calcium suzie urement (mass/volume)Ordered By: Dr. Chen on 01-31-2023 Calcium [Mass/Vol] 8.7 mg/dL 8.5-10.1 [facility] Serum or plasma creatinine m easurement (mass/volume)Ordered By: Dr. Chen on 01-31-2023 Creatinine [Mass/Vol] 1.02 mg/dL 0.70-1.30 [facility] Comment on above: The validity of the calculated GFR & GFRAA in patients over 70 years has not been determined. Clinical correlation is essential. Serum or plasma ferritin phuc surement (mass/volume)Ordered By: Dr. Chen on 01-31-2023 Ferritin [Mass/Vol] 754 ng/mL 26-388 [facility] Serum or plasma urea nitroge n measurement (mass/volume)Ordered By: Dr. Chen on 01-31-2023 Urea nitrogen [Mass/Vol] 18 mg/dL 7-18 [facility] Thin prep Papanicolaou smear with manual screeningOrdered By: Dr. Chen on 01-31-2023 Thin prep Papanicolaou smear with manual screening 152 U/L 15-37 [facility] Thin prep Papanicolaou smear with manual screening 8 5-15 [facility] Basophil percentageOrdered B y: Dr. Chen on 10-12-2022 Creatinine [Mass/Vol] 1.2 mg/dL 0.70-1.30 [facility] No Panel InformationOrdered By: Dr. Chen on 10-12-2022 Bedside Estimated GFR (eGFR) > 60.0000 mL/min >60 [facility] Basophil percentageOrdered B y: Dr. Chen on 08-04-2022 Bilirubin [Mass/Vol] 0.90 mg/dL 0.20-1.00 [facility] Comment on above: For patients on eltr ombopag therapy, use of Dimension Ringold TBIL is not recommended. Chloride [Moles/Vol] 102 mmol/L 98-107 [facility] Cholesterol [Mass/Vol] 292 mg/dL <200 [facility] Comment on above: <200 mg/dL Desirable 200-240 mg/dL Borderline >240 mg/dL High Risk Glucose [Mass/Vol] 129 mg/dL 74-106 [facility] Comment on above: Fasting Glucose resu lt greater than or equal to 126 mg/dL suggests DIABETES MELLITUS per A.D.A. criteria. Potassium [Moles/Vol] 3.8 mmol/L 3.5-5.1 [facility] Protein [Mass/Vol] 7.9 g/dL 6.4-8.2 [facility] Sodium [Moles/Vol] 135 mmol/L 136-145 [facility] Triglyceride [Mass/Vol] 634 mg/dL <199 [facility] Comment on above: The drugs N-Acetylcy steine and Metamizole may falsely depress this assay. TRIGLYCERIDE IS GREATER THAN 400 mg/dL. LDL RESULT IS INVALID AND WILL NOT BE REPORTED.Serum Triglycerides Reference Interval Normal <150 mg/dL Borderline high 150 - 199 mg/dL High 200 - 499 mg/dL Very High > or = 500 mg/dL WBC (Bld) [#/Vol] 7.7 10*3/uL 4.4-11.0 [facility] Blood erythrocytes count (nu mber/volume)Ordered By: Dr. Chen on 08-04-2022 RBC (Bld) [#/Vol] 3.89 10*6/uL 4.6-6.2 [facility] Blood hemoglobin measurement (mass/volume)Ordered By: Dr. Chen on 08-04-2022 Hemoglobin (Bld) [Mass/Vol] 13.5 g/dL 13.0-16.5 [facility] Blood platelet mean volumeOr dered By: Dr. Chen on 08-04-2022 Platelet mean volume (Bld) [Entitic vol] 10.6 fL 6.2-12.0 [facility] Determination of erythrocyte mean corpuscular volume (MCV)Ordered By: Dr. Chen on 08-04-2022 MCV (RBC) [Entitic vol] 103.3 fL 80-94 [facility] Erythrocyte sedimentation ra teOrdered By: Dr. Chen on 08-04-2022 ESR (Bld) [Velocity] 21 mm/h 0-20 [facility] Hematocrit Auto (Bld) [Volum e fraction]Ordered By: Dr. Chen on 08-04-2022 Hematocrit (Bld) [Volume fraction] 40.2 % 40-54 [facility] Laboratory - Chemistry and C hemistry - challengeOrdered By: Dr. Chen on 08-04-2022 ALP [Catalytic activity/Vol] 150 U/L 45-117 [facility] ALT [Catalytic activity/Vol] 145 U/L 16-61 [facility] Amylase [Catalytic activity/Vol] 1679 U/L 15-85 [facility] CO2 [Moles/Vol] 24.0 mmol/L 21.0-32.0 [facility] Cobalamin (Vitamin B12) [Mass/Vol] 479 pg/mL 211-911 [facility] Globulin (S) [Mass/Vol] 4.4 g/dL 2.2-4.2 [facility] Urea nitrogen/Creatinine [Mass ratio] 14.2 mg/mg 10-20 [facility] Laboratory - Hematology and Cell countsOrdered By: Dr. Chen on 08-04-2022 Erythrocyte distribution width (RBC) [Entitic vol] 50.0 fL 35.1-43.9 [facility] Erythrocyte distribution width (RBC) [Ratio] 13.2 % 11.6-14.6 [facility] MCH (RBC) [Entitic mass] 34.7 pg 27.0-32.0 [facility] MCHC Auto (RBC) [Mass/Vol]Or dered By: Dr. Chen on 08-04-2022 MCHC (RBC) [Mass/Vol] 33.6 g/dL 32-36 [facility] No Panel InformationOrdered By: Dr. Chen on 08-04-2022 Estimated GFR (MDRD) Amer 85 mL/min >60 [facility] Comment on above: GFR Calc Estimated GFR (MDRD) Non-Af Amer 71 mL/min >60 [facility] Comment on above: Non- GFR Calc Vitamin D 25-Hydroxy 36.1 ng/mL [facility] Comment on above: Vitamin D 25(OH) Sta tus Range Deficiency <20 ng/mL (50nmol/L) Insufficiency 20 - 30 ng/mL (50 - 75 nmol/L) Sufficiency 30 - 100 ng/mL (75 - 250 nmol/L) Toxicity >100 ng/mL (>250 nmol/L) Platelets bldOrdered By: Dr. Chen on 08-04-2022 Platelets (Bld) [#/Vol] 154 10*3/uL 150-450 [facility] Serum or plasma albumin suzie urement (mass/volume)Ordered By: Dr. Chen on 08-04-2022 Albumin [Mass/Vol] 3.5 g/dL 3.2-5.0 [facility] Serum or plasma albumin/glob ulin mass ratioOrdered By: Dr. Chen on 08-04-2022 Albumin/Globulin [Mass ratio] 0.8 {ratio} 0.9-2.4 [facility] Serum or plasma calcium suzie urement (mass/volume)Ordered By: Dr. Chen on 08-04-2022 Calcium [Mass/Vol] 9.4 mg/dL 8.5-10.1 [facility] Serum or plasma cholesterol in HDL measurement (mass/volume)Ordered By: Dr. Chen on 08-04-2022 Cholesterol in HDL [Mass/Vol] 25 mg/dL >40 [facility] Comment on above: The drugs N-Acetylcy steine and Metamizole may falsely depress this assay. Reference Range HDL <40 mg/dL Low HDL Cholesterol HDL >or= 60 mg/dL High HDL Cholesterol Serum or plasma cholesterol in VLDL measurement (mass/volume)Ordered By: Dr. Chen on 08-04-2022 Cholesterol in VLDL [Mass/Vol] TNP [facility] Comment on above: Test not performed Serum or plasma creatinine m easurement (mass/volume)Ordered By: Dr. Chen on 08-04-2022 Creatinine [Mass/Vol] 1.13 mg/dL 0.70-1.30 [facility] Comment on above: The validity of the calculated GFR & GFRAA in patients over 70 years has not been determined. Clinical correlation is essential. Serum or plasma ferritin phuc surement (mass/volume)Ordered By: Dr. Chen on 08-04-2022 Ferritin [Mass/Vol] 1190 ng/mL [facility] Serum or plasma low density lipoprotein (LDL) cholesterol measurement (mass/volume)Ordered By: Dr. Chen on 08-04-2022 Cholesterol in LDL [Mass/Vol] [facility] Comment on above: Test not performed Serum or plasma urea nitroge n measurement (mass/volume)Ordered By: Dr. Chen on 08-04-2022 Urea nitrogen [Mass/Vol] 16 mg/dL 04-26 [facility] Serum or plasma uric acid me asurement (mass/volume)Ordered By: Dr. Chen on 08-04-2022 Urate [Mass/Vol] 7.3 mg/dL 3.5-7.2 [facility] Comment on above: The drugs N-Acetylcy steine and Metamizole may falsely depress this assay. Thin prep Papanicolaou smear with manual screeningOrdered By: Dr. Chen on 08-04-2022 Thin prep Papanicolaou smear with manual screening 164 U/L 15 [facility] Thin prep Papanicolaou smear with manual screening 9 5-15 [facility] Vital Signs Date Time Vital Sign Value Performing Clinician Faci lity 02-13-2024 10:06040 Body height 175.[address] Kayleen Chen Work Phone: [facility] 02-13-2024 10:06-0400 Body mass index (BMI) [Ratio] 34.5 kg/m2 Dr. Kayleen Chen Work Phone: [facility] 02-13-2024 10:06-0400 Body weight 106.[address] Kayleen Chen Work Phone: [facility] 02-13-2024 10:06-0400 Diastolic blood pressure 70 mm[Hg] Dr. Kayleen Chen Work Phone: [facility] 02-13-2024 10:06-0400 Heart rate 81 /min Dr. Kayleen Chen Work Phone: [facility] 02-13-2024 10:06-0400 SaO2% (BldA) [Mass fraction] 93 % Dr. Kayleen Chen Work Phone: [facility] 02-13-2024 10:06-0400 Systolic blood pressure 109 mm[Hg] Dr. Kayleen Chen Work Phone: [facility] 10-24-2023 07:34-0500 Body height 175.[address] Serge Chen Work Phone: [facility] 10-24-2023 07:34-0500 Body mass index (BMI) [Ratio] 33 kg/m2 Dr. Serge Chen Work Phone: [facility] 10-24-2023 07:34-0500 Body weight 101.[address] Serge Chen Work Phone: [facility] 10-24-2023 07:34-0500 Diastolic blood pressure 83 mm[Hg] Dr. Serge Chen Work Phone: [facility] 10-24-2023 07:34-0500 Heart rate 79 /min Dr. Serge Chen Work Phone: [facility] 10-24-2023 07:34-0500 SaO2% (BldA) [Mass fraction] 94 % Dr. Serge Chen Work Phone: [facility] 10-24-2023 07:34-0500 Systolic blood pressure 146 mm[Hg] Dr. Serge Chen Work Phone: [facility] 08-18-2023 16:08-0500 Body height 175.3 cm Corina Stoll MD Work Phone: [facility] 08-18-2023 16:08-0500 Body weight 100.06 kg Corina Stoll MD Work Phone: [facility] 08-18-2023 16:08-0500 Diastolic blood pressure 84 mm[Hg] Corina Stoll MD Work Phone: [facility] 08-18-2023 16:08-0500 Heart rate 89 /min Corina Stoll MD Work Phone: [facility] 08-18-2023 16:08-0500 Systolic blood pressure 138 mm[Hg] Corina Stoll MD Work Phone: [facility] 05-02-2023 09:05-0400 Body temperature 98.3 [degF] Dr. Serge Chen Work Phone: [facility] 05-02-2023 09:05-0400 Diastolic blood pressure 74 mm[Hg] Dr. Serge Chen Work Phone: [facility] 05-02-2023 09:05-0400 Heart rate 79 /min Dr. Serge Chen Work Phone: [facility] 05-02-2023 09:05-0400 Respiratory rate 16 /min Dr. Serge Chen Work Phone: [facility] 05-02-2023 09:05-0400 SaO2% (BldA) [Mass fraction] 99 % Dr. Serge Chen Work Phone: [facility] 05-02-2023 09:05-0400 Systolic blood pressure 121 mm[Hg] Dr. Serge Chen Work Phone: [facility] 05-02-2023 07:21-0400 Body height 175.[address] Serge Chen Work Phone: [facility] 05-02-2023 07:21-0400 Body mass index (BMI) [Ratio] 30.9 kg/m2 Dr. Serge Chen Work Phone: [facility] 05-02-2023 07:21-0400 Body weight 95.[address] Serge Chen Work Phone: [facility] 02-25-2023 10:10-0400 Diastolic blood pressure 67 mm[Hg] Dr. Serge Chen Work Phone: 3(506)659-184192 [place] [address] 02-25-2023 10:10-0400 Heart rate 82 /min Dr. Serge Chen Work Phone: 7(049)939-340692 [place] [address] 02-25-2023 10:10-0400 Respiratory rate 16 /min Dr. Serge Chen Work Phone: 3(215)774-920892 [place] [address] 02-25-2023 10:10-0400 SaO2% (BldA) [Mass fraction] 97 % Dr. Serge Chen Work Phone: 8(945)916-124091 [place] [address] 02-25-2023 10:10-0400 Systolic blood pressure 110 mm[Hg] Dr. Serge Chen Work Phone: 5(385)799-013092 [place] [address] 02-25-2023 08:16-0400 Body height 175.[address] Serge Chen Work Phone: 0(934)932-284992 [place] [address] 02-25-2023 08:16-0400 Body mass index (BMI) [Ratio] 31.3 kg/m2 Dr. Serge Chen Work Phone: 6(563)853-705291 [place] [address] 02-25-2023 08:16-0400 Body temperature 98.2 [degF] Dr. Serge Chen Work Phone: 6(434)471-267492 [place] [address] 02-25-2023 08:16-0400 Body weight 96.[address] Serge Chen Work Phone: 5(751)661-280692 [place] [address] 02-07-2023 13:43-0400 Body weight 95.[address] Serge Chen Work Phone: 8(663)224-118092 [place] [address] 02-07-2023 13:43-0400 Diastolic blood pressure 78 mm[Hg] Dr. Serge Chen Work Phone: [facility] 02-07-2023 13:43-0400 Heart rate 102 /min Dr. Serge Chen Work Phone: [facility] 02-07-2023 13:43-0400 SaO2% (BldA) [Mass fraction] 96 % Dr. Serge Chen Work Phone: [facility] 02-07-2023 13:43-0400 Systolic blood pressure 133 mm[Hg] Dr. Serge Chen Work Phone: [facility] Encounters Encounter Date Encounter Type Care Provider Facility Start: 05-16-2025 End: 05-16-2025 ambulatory Kayleen Chen Facility:[facility] Start: 04-25-2025 End: 04-25-[address] Kayleen Chen MD Work Phone: -[facility] [place] Start: 04-25-2025 End: 04-25-[address] Kayleen Chen MD -[facility] [place] Work Phone: Start: 04-25-2025 End: 04-25-2025 ambulatory Kayleen Chen Facility:[facility] Start: 04-01-2025 End: 04-01-[address] Kayleen Chen MD Work Phone: [facility] Work Phone: Start: 04-01-2025 End: 04-01-[address] Kayleen Chen MD -Laboratory [facility] Start: 04-01-2025 End: 04-01-2025 ambulatory Kayleen Chen Facility:[facility] Start: 09-03-2024 End: 09-03-2024 ambulatory Kayleen Chen Facility:[facility] Start: 08-27-2024 ambulatory Kayleen Chen Faci lity:[facility] Start: 08-27-2024 End: 08-27-2024 ambulatory Miladys Knapp Facility:[facility] Start: 02-13-2024 End: 02-13-[address] Kayleen Chen Work Phone: [facility] Work Phone: Start: 02-13-2024 End: 02-13-[address] Kayleen Chen Work Phone: [facility] Work [facility]: Start: 10-24-2023 End: 10-24-[address] Serge Chen Work Phone: [facility] Work Phone: Start: 10-24-2023 End: 10-24-[address] Serge Chen Work Phone: [facility] Gastroenterology Work Phone: Start: 08-19-2023 End: 08-20-2023 ambulatory CORINA STOLL Facility:[facility] Start: 08-19-2023 End: 08-19-[address] Serge Chen Work Phone: [facility] Work Phone: Start: 08-19-2023 End: 08-19-[address] Serge Chen Work Phone: [facility] Work Phone: Start: 08-18-2023 End: 08-18-2023 ambulatory [facility] Facility:[facility] Start: 08-18-2023 End: 08-18-2023 Office outpatient new 60 minutes Corina Stoll MD Work Phone: [facility] [place] Comment on above: Alcoholic hepatitis with ascites (Primary Dx); Chronic diarrhea Start: 07-15-2023 End: 07-15-[address] Serge Chen Work Phone: [facility] Gastroenterology Work Phone: Start: 05-02-2023 Non-patient / Non-visit Dr. Serge Chen Work Phone: [facility] Start: 05-02-2023 End: 05-02-2023 Admission to same day surgery center Dr. Serge Chen Work Phone: [facility]-Endoscopy Work Phone: Start: 05-02-2023 End: 05-02-[address] Serge Chen Work Phone: [facility] Work Phone: Start: 04-11-2023 End: 04-11-[address] Serge Chen Work Phone: [facility] Work Phone: Start: 04-11-2023 End: 04-11-[address] Serge Chen Work Phone: [facility] Work Phone: Start: 02-25-2023 End: 02-25-[address] Serge Chen Work Phone: [facility] Work Phone: Start: 02-25-2023 End: 02-25-[address] Serge Chen Work Phone: [facility] Start: 02-07-2023 End: 02-07-[address] Serge Chen Work Phone: [facility] Gastroenterology Start: 01-31-2023 End: 01-31-[address] Serge Chen Work Phone: [facility] Start: 10-12-2022 End: 10-12-[address] [facility] Work Phone: Start: 10-12-2022 End: 10-12-2022 Patient encounter procedure [facility]ound, [facility] Start: 08-04-2022 End: 08-04-[address] [facility] Work Phone: Start: 08-04-2022 End: 08-04-2022 Patient encounter procedure [facility]-Laboratory, [place] Procedures Date Procedure Procedure Detail Performing Clinician Start: 04-25-2025 Complete x-ray serie s of lumbar spine with bending views Dr. Kayleen Chen MD Work Phone: Start: 04-01-2025 Prostate specific an tigen measurement Dr. Kayleen Chen MD Work Phone: Comment on above: This test was perfor med using the [employer] tPSA method. Measured values of a patient sample can vary depending on the testing procedure used. PSA values determined on patient samples by different testing procedures cannot be used interchangeably. If there is a change in PSA assays while monitoring therapy, sequential testing should be performed to confirm baseline values. Start: 04-01-2025 Vitamin D, 25-hydrox y measurement Dr. Kayleen Chen MD Work Phone: Comment on above: Vitamin D StatusDefi ciency: <20 ng/mL (50nmol/L)Insufficiency: 20-30 ng/mL (50-75 nmol/L)Sufficiency: 30-100 ng/mL (75-250 nmol/L)Toxicity: >100 ng/mL (>250 nmol/L) Start: 08-19-2023 Clostridium difficil e detection Dr. Serge Chen Work Phone: Start: 08-19-2023 Giardia Antigen (TATIANA) D makenzie Chen Work Phone: Start: 08-19-[address] Serge Chen Work Phone: Start: 08-19-[address] Serge Chen Work Phone: Start: 08-19-2023 Ova OR parasites identification Dr. Serge Chen Work Phone: Start: 08-19-2023 Ultrasound elastogra phy of liver Dr. Serge Chen Work Phone: Start: 05-02-[address] Filemon Chen Work Phone: Start: 04-11-2023 Computed tomography of abdomen and pelvis with contrast Dr. Serge Chen Work Phone: Start: 02-25-2023 Biopsy/Inj or Needle Placement Dr. Serge Chen Work Phone: Start: 10-12-2022 Ultrasonography of abdomen Start: 10-12-2022 Ultrasound elastography Start: 10-12-2022 CT of soft tissues o f neck with contrast Start: 08-04-2022 X-ray of soft tissue of neck Plan of Treatment Date Care Activity Detail Author Start: 08-18-2023 End: 11-17-2023 C reactive protein [Mass/volume] in Serum or Plasma C-REACTIVE PROTEIN (CRP) Lab Routine Chronic diarrhea Expected: 08/18/2023, Expires: 11/17/2023 [facility] Work Phone: Comment on above: Expected: 08/18/2023 , Expires: 11/17/2023 Start: 08-18-2023 End: 11-17-2023 CBC W Auto Differential panel - Blood CBC + DIFF Lab Routine Alcoholic hepatitis with ascites Expected: 08/18/2023, Expires: 11/17/2023 [facility] Work Phone: Comment on above: Expected: 08/18/2023 , Expires: 11/17/2023 Start: 08-18-2023 End: 11-17-2023 CELIAC SCREEN WITH REFLEX CELIAC SCREEN WITH REFLEX Lab Routine Chronic diarrhea Expected: 08/18/2023, Expires: 11/17/2023 [facility] Work Phone: Comment on above: Expected: 08/18/2023 , Expires: 11/17/2023 Start: 08-18-2023 End: 11-17-2023 Comprehensive metabolic 2000 panel - Serum or Plasma COMP METABOLIC PANEL Lab Routine Alcoholic hepatitis with ascites Expected: 08/18/2023, Expires: 11/17/2023 [facility] Work Phone: Comment on above: Expected: 08/18/2023 , Expires: 11/17/2023 Start: 08-18-2023 End: 11-17-2023 PT panel - Platelet poor plasma by Coagulation assay PROTHROMBIN TIME/PT Lab Routine Alcoholic hepatitis with ascites Expected: 08/18/2023, Expires: 11/17/2023 [facility] Work Phone: Comment on above: Expected: 08/18/2023 , Expires: 11/17/2023 Start: 08-18-2023 End: 11-17-2023 Thyrotropin [Units/volume] in Serum or Plasma TSH BLD Lab Routine Chronic diarrhea Expected: 08/18/2023, Expires: 11/17/2023 [facility] Work Phone: Comment on above: Expected: 08/18/2023 , Expires: 11/17/2023 Start: 06-10-2023 Covid-19 Vaccine () Covid-19 Vaccine () [facility] Start: 06-10-2023 Influenza vaccination Influenza Vacc ine (#1) [facility] Start: 05-02-2023 Colsc flx w/rmvl of tumor polyp lesion snare tq COLONOSCOPY W/LESION REMOVAL [facility] Start: 05-02-2023 Egd transoral biopsy single/multiple EGD BIOPSY SINGLE/MULTIPLE [facility] Start: 05-02-2023 Patient discharge [facility] Start: 02-25-2023 Biopsy liver needle percutaneous NEEDLE BIOPSY OF LIVER [facility] Start: 02-25-2023 Catheterization of vein [facility] Start: 02-25-2023 Oxygen therapy [facility] Start: 02-25-2023 Patient discharge [facility] Start: 02-25-2023 Vital signs measurements [facility] Start: 02-25-2023 Following clinical pathway protocol [facility] Start: 2023 RSV Vaccine (1 - 1-d ose 60+ series) RSV Vaccine (1 - 1-dose 60+ series) [facility] Start: 10-10-2022 Depression Assessment Depression Ass essment [facility] Start: 2018 Prostate Cancer Scre ening Discussion Prostate Cancer Screening Discussion [facility] Start: 2013 Shingrix Vaccine (1 of 2) Santamaria grix Vaccine (1 of 2) [facility] Start: 01-15-2008 Cologuard (FIT-DNA) Cologuard (FIT-D NA) [facility] Start: 01-15-2008 Colonoscopy Colonoscopy [facility] Start: 01-15-2008 Colorectal Cancer Screening Colorectal Cancer Screening [facility] Start: 01-15-[address] Colonography [facility] Start: 01-15-2008 Diabetes Screening Diabetes Screenin g [facility] Start: 01-15-2008 Fecal Occult Blood Fecal Occult Bloo d [facility] Start: 01-15-2008 Sigmoidoscopy Sigmoidoscopy [facility] Start: 1998 Lipid 1996 panel - S char or Plasma Lipid Screening [facility] Start: 1982 Urine microalbumin profile DTaP,Tdap,Td Vaccine (1 - Tdap) [facility] Start: 1981 Hepatitis C Screening Hepatitis C Sc reening [facility] Start: 1981 HIV Screening HIV Screening [facility] Calprotectin [Mass/m ass] in Stool CALPROTECTIN,FECAL Lab Routine Chronic diarrhea Ordered: 08/18/2023 [facility] Work Phone: Comment on above: Ordered: 08/18/2023 Clostridioides diffi cile toxin genes [Presence] in Stool by NATALIIA with probe detection C. DIFFICILE PCR Lab Routine Chronic diarrhea Ordered: 08/18/2023 [facility] Work Phone: Comment on above: Ordered: 08/18/2023 Colonoscopy [facility] CT Abdomen and Pelvi s WO and W contrast IV [facility] ENTERIC BACTERIAL PA JOSE ENRIQUE BY PCR ENTERIC BACTERIAL PANEL BY PCR Lab Routine Chronic diarrhea Ordered: 08/18/2023 [facility] Work Phone: Comment on above: Ordered: 08/18/2023 FAT, FECAL QUAL FAT, FECAL QUAL Lab Routine Chronic diarrhea Ordered: 08/18/2023 [facility] Work Phone: Comment on above: Ordered: 08/18/2023 Liver stiffness by US.transient elastography [facility] Ova and parasites identified in Unspecified specimen by Light microscopy [facility] PANC ELASTASE, FECAL PANC ELASTA SE, FECAL Lab Routine Chronic diarrhea Ordered: 08/18/2023 [facility] Work Phone: Comment on above: Ordered: 08/18/2023 Patient Education RAD RN Biopsy Liver Dc RAD RN Procedural Sedation [facility] Work Phone: Patient referral [facility] Work Phone: Potassium [Moles/vol ume] in Stool POTASSIUM STOOL Lab Routine Chronic diarrhea Ordered: 08/18/2023 [facility] Work Phone: Comment on above: Ordered: 08/18/2023 Protein measurement [facility] Sodium [Moles/volume ] in Stool SODIUM, STOOL Lab Routine Chronic diarrhea Ordered: 08/18/2023 [facility] Work Phone: Comment on above: Ordered: 08/18/2023 [facility] Payers Date Payer Category Payer Self-pay [id number] 2020 Private Health Insurance [employer] Haile ETMONIE POS [id number] 2020-Present [phone] [address] [place] [address] POS [id number] 2020 Private Health Insurance [id number] Private Health Insurance [id number] Unknown BÁRBARA [id number] Unknown [id number] Unknown [id number] Unknown [id number] Unknown [id number] Unknown [id number] Unknown [id number] Social History Date Type Detail Facility Start: 12-06-2017 End: 10-24-2023 Tobacco smoking status NHIS Unknown if ever smoked [facility] Start: 1965 Sex Assigned At Male [facility] Start: 08-18-2023 [facility] Start: 08-18-2023 Tobacco use and exposure User of smokeless tobacco [facility] History of tobacco use Chews Tobacco [facility] Start: 08-18-2023 Alcohol intake Current drinke r of alcohol (finding) [facility] Start: 08-18-2023 Alcohol intake [facility] Start: 08-18-2023 Tobacco use panel [facility] National Score (1-100), lower number is lower risk 59 [facility] Start: 08-18-2023 Tobacco Comment Chewing tobacc o 30 years, daily use [facility] Start: 08-18-2023 Alcohol Comment Has cut back f rom 12 pk daily in the last 3/4 weeks, as of 08/18/23 [facility] Start: 1965 Sex Assigned At Not on file [facility] Start: 10-24-2023 [facility] Goals Date Patient Goal Desired Activity /State Mental Status Date Assessment Result Facility 05-02-2023 Cognitive function Voice/Name [facility] Work Phone: 02-25-2023 Cognitive function Awake [facility] Work Phone: Clinical Notes 05-02-2023 to 04-26-2025 Corina Stoll MD - 08/18/2023 4:06 PM EST Note Date & Type Note Facility 04-26-2025 Radiology Diagnostic study note [facility] [address] [place], [place] [address] L/S Spine w Bend Min 6 Vw MR#: [id number] Acct: [id number] Name: MARIELY BHANDARI Rep #: [id number] : [id number] M 60 From: Jada Arroyo MD PCP: Dr. Kayleen Chen MD Status: REG CLI Study:L/S Spine w Bend Min 6 Vw Date of Exam: 04/25/25 Exam# [id number] Ordering Dr: Mckinley Chen MD EXAM: XR Lumbosacral Spine Complete with Flexion/Extension, 6 or More Views CLINICAL INDICATION: DORSALGIA TECHNIQUE: Lateral, frontal, oblique and lateral flexion/extension views of thelumbar spine and sacrum. COMPARISON: No relevant prior studies available. FINDINGS: VERTEBRAE: Anterior spondylolisthesis of L4 over L5 by 5 mm, which reduces to 1mm with extension and increases to 8 mm on flexion. Multilevel endplate degenerative changes and disc degeneration visualized spine, most prominent at L5-S1. Moderate facet arthropathy of L3-S1. No acute fracture. SACRUM/COCCYX: Unremarkable as visualized. No acute fracture. DISC SPACES: See above. SOFT TISSUES: Unremarkable. RAD/L/S Spine w Bend Min 6 Vw IMPRESSION: 1. Anterior spondylolisthesis of L4 over L5 by 5 mm, which reduces to 1 mm withextension and increases to 8 mm on flexion. 2. Degenerative changes as above. Reading [facility] CC: Dr. Kayleen Chen MD ~ Butcher: Signed [facility] 08-18-2023 Note HNO ID: [id number] Author: Corina Stoll MD Service: ? Author Type: Physician Type: Progress Notes Filed: 08/20/2023 4:41 PM Note Text: CHIEF COMPLAINT: Patient presents with: Liver Disease: Cirrhosis stage 4, full workup, [facility] Mariely Bhandari is a 58 year old male who presents for Liver Disease (Cirrhosis stage 4, full workup, [facility]). HPI 58 YOM with alcoholic hepatitis and likeley cirrhosis MELD 3.0 11. Per previous notes He drinks 12 beers per day, not interested in quitting or cutting back. Liver elastography in Oct 2022 with 19 kPa. (F4) Comprehensive workup done in [place]. EtOH use disorder. Associated with diarrhea when he drinks. For second opinion. He knows that he needs to get help to stop drinking. AST and ALT x2-3 ULN. EGD and colonoscopy April 2023 ([facility]) Impression: - Non-severe reflux esophagitis. - Portal [...] LIVER BIOPSY 02/25/2023 results consistent with cirrhosis, [facility] LIVER ELASTOGRAPHY 10/12/2022 F 3-4, [facility] REPAIR ROTATOR CUFF,ACUTE Right Allergies: ALLERGIES Not [...] workup. - He will follow up in [place], but will think about following up at [facility] at [place]. - C. DIFFICILE PCR - CALPROT (more content not included)... [facility] 08-18-2023 History of Present illness Narrative CHIEF COMPLAINT: Patient presents with: Liver Disease: Cirrhosis stage 4, full workup, [facility] Mariely Bhandari is a 58 year old male who presents for Liver Disease (Cirrhosis stage 4, full workup, [facility]). HPI 58 YOF with alcoholic hepatitis and likeley cirrhosis MELD 3.0 11. Per previous notes He drinks 12 beers per day, not interested in quitting or cutting back. Liver elastography in Oct 2022 with 19 kPa. (F4) Comprehensive workup done in [place]. EtOH use disorder. Associated with diarrhea when he drinks. For second opinion. He knows that he needs to get help to stop drinking. AST and ALT x2-3 ULN. EGD and colonoscopy April 2023 ([facility]) Impression: - Non-severe reflux esophagitis. - Portal [...] LIVER BIOPSY 02/25/2023 results consistent with cirrhosis, [facility] LIVER ELASTOGRAPHY 10/12/2022 F 3-4, [facility] REPAIR ROTATOR CUFF,ACUTE Right Allergies: ALLERGIES Not [...] workup. - He will follow up in [place], but will think about following up at [facility] at [place]. - C. DIFFICILE PCR - CALPROTECTIN,FECAL - CELIAC SCREEN WITH REFLEX; Future - C-REACTIVE PROTEIN (CRP); Future - ENTERIC BACTERIAL PANEL BY PCR - FAT, FECAL QUAL - PANC ELASTASE, FECAL - POTASSIUM STOOL - SODIUM, STOOL - TSH BLD; Future RTC PRN Corina Stoll MD DATE: 08/18/23 TIME: 4:08 PM documented in this encounter [facility] 05-02-2023 History and physi miriam note Note Date/Time May 02, 2023 7:11am [facility] Medical Records Department [address] [place] [address] History & Physical Exam 05/02/23 0711 MR#: [id number] Acct: [id number] Name: MARIELY BHANDARI Rep #:[id number] : 1965 58 From: Juarez Friend DO PCP: Dr. Serge Chen MD Status: [facility] Location: [place] [address] History and Physical Date of Admission: 05/02/23 MARIELY BHANDARI, is a 58 M who presents to the office today for liver fibrosis. He is accompanied by his . He has elevated liver enzymes. He drinks 12 beersper day, not interested in quitting or cutting back. Liver elastography in 10/2022 shows severe liver stiffness of 19 kpa. Recent platelets are low. He denies jaundice; but said she thinks his eyes have looked yellow. No bleeding, no ascites, no confusion, no edema, no skin changes. No nausea, vomiting, dysphagia, abd pain. He denies bowel concerns, but notes he has watery diarrhea every morning, pt blames the beer. PRN loperamide. No melena or hematochezia. Hx of tubular adenoma in cecum 5 yrs ago. He has elevated triglycerides, not on medication for cholesterol. 01/2023 labs: platelets 130, sodium 130, ferritin 754, GGT 1550, AST 152, ALT 130, alk phos 156 07/2022 labs: trigs 634 2018 colonoscopy: diverticulosis, cecal tubular adenoma 10/12/22 Liver elastography 19 kpa, liver US fatty liver, liver measures 16.9 cm Comorbidities: alcohol abuse, gout, dyslipidemia, HTN PSH: hemorrhoidectomy, umbilical hernia repair ROS Const Constitutional: No fatigue ENT ENT: No difficulty swallowing Gastro GI: Positive for diarrhea; No abdominal pain, belching, bloating, change in bowel habits, change in stool character, coffee ground emesis, constipation, cramping, heartburn, difficulty swallowing, feeling full early, excessive flatus, incontinent of stools, Vomiting blood/hematemesis, Blood in stool, loose stools, Black,tarry stools, nausea/dyspepsia, pain with swallowing, vomiting or other Musc Musculoskeletal: No joint pain Skin Skin: No yellowing of the eye or itchy eyes Psych Psychiatric: No anxiety and No depression Endo Endocrine: No fatigue Aller/Imm Allergy/Immunologic: No itchy eyes Butch/Lymp Hematologic/Lymphatic: No easy bleeding or easy bruising Exam Const General: cooperative and no acute distress Orientation: alert, awake and oriented x3 Eyes Sclera: sclerae normal Resp Effort & Inspection: normal respiratory effort GI Inspection: distended Skin General: no rashes or lesions noted Neuro Gait: normal gait Psych Mood: congruent mood Quality Reporting Tobacco Screening ([facility]) Smoking Status: Current every day smoker Assessment and Plan Assessment and Plan (1) Liver fibrosis: Status: Chronic Plan: 58 yr old male w/ liver fibrosis, likely cirrhosis, due to alcohol abuse. Comorbid hypertriglceridemia. Not interested in quitting/cutting back on alcohol, 12 beers per day. Labs to complete liver eval Liver biopsy, expect cirrhosis Will call pt with results of labs and bx EGD and Colonoscopy, office f/u 2 wks after Needs med(s) for elevated trigs He is on NSBB for HTN. Will eval for varices on EGD Consider CT abd (2) Abnormal liver enzymes: Status: Acute Orders: Orders HIV - [facility] Today K74.00 - Hepatic fibrosis, unspecified, R74.8 - Abnormal levels of other serum enzymes CRP Today K74.00 - Hepatic fibrosis, unspecified, R74.8 - Abnormal levels of other serum enzymes LDH Today K74.00 - Hepatic fibrosis, unspecified, R74.8 - Abnormal levels of other serum enzymes Hemoglobin A1c Today K74.00 - Hepatic fibrosis, unspecified, R74.8 - Abnormal levels of other serum enzymes Prothrombin Time w/INR Today K74.00 - Hepatic fibrosis, unspecified, R74.8 - Abnormal levels of other serum enzymes Erythrocyte Sed Rate Today K74.00 - Hepatic fibrosis, unspecified, R74.8 - Abnormal levels of other serum enzymes Anti-Mitochondrial AB Today K74.00 - Hepatic fibrosis, unspecified, R74.8 - Abnormal levels of other serum enzymes DUSTIN Comprehensive Panel Today K74.00 - Hepatic fibrosis, unspecified, R74.8 - Abnormal levels of other serum enzymes Hepatitis Panel Acute Today K74.00 - Hepatic fibrosis, unspecified, R74.8 - Abnormal levels of other serum enzymes Angiotensin Convert Enzyme Today K74.00 - Hepatic fibrosis, unspecified, R74.8 -Abnormal levels of other serum enzymes AFP, Tumor Marker Today K74.00 - Hepatic fibrosis, unspecified, R74.8 - Abnormallevels of other serum enzymes ANCA Today K74.00 - Hepatic fibrosis, unspecified, R74.8 - Abnormal levels of other serum enzymes Anti-Smooth Muscle ABS Today K74.00 - Hepatic fibrosis, unspecified, R74.8 - Abnormal levels of other serum enzymes Ceruloplasmin Today K74.00 - Hepatic fibrosis, unspecified, R74.8 - Abnormal levels of other serum enzymes Copper, Serum or Plasma Today K74.00 - Hepatic fibrosis, unspecified, R74.8 - Abnormal levels of other serum enzymes Haptoglobin Today K74.00 - Hepatic fibrosis, unspecified, R74.8 - Abnormal levels of other serum enzymes Ammonia Today K74.00 - Hepatic fibrosis, unspecified, R74.8 - Abnormal levels ofother serum enzymes Biopsy/Inj or Needle Placement Today K74.00 - Hepatic fibrosis, unspecified, R74.8 - Abnormal levels of other serum enzymes Medications: Discontinued hydroxyzine HCl Discontinued Reason: Pt no longer taking 25 mg PO QHS I have examined the patient and the H&P has been reviewed. There are no clinicalchanges since date of exam. 05/02/23 0711 <Electronically signed by Juarez Mcdowell DO> Cosigner Signature (if applicable): CC: Dr. Serge Chen MD; Juarez Mcdowell DO~ Signed [facility] Work Phone: [phone] 333-415607-24-2023 Procedure [facility] 05-02-2023 Procedure [facility]07-24-2023 Procedure note [facility]07-24-2023 Procedure [facility] Evaluation noteNo assessment information availableAultman Or[facility] Work Phone: Evaluation note* Diagnosis Onset Date Resolution Status Abnormal liver enzymes acute Liver fibrosis [facility] Work Phone: Evaluation note* Diagnosis Alcoholic hepatitis with ascites- Primary Acute alcoholic hepatitis Chronic diarrhea Diarrhea [facility] Diagnosis Onset Date Resolution Status Alcoholic cirrhosis chronic Diarrhea [facility] Work Phone: Evaluation note* Diagnosis Onset Date Resolution Status Alcoholic cirrhosis chronic Diarrhea chronic Alcoholic cirrhosis chronic Hypertriglyceridemia [facility] Work Phone: Evaluation note* Diagnosis Onset Date Resolution Status Alcoholic cirrhosis chronic Hypertriglyceridemia chronic Alcoholic cirrhosis chronic Hypertriglyceridemia [facility] Work Phone: Reason for referral (narrative)No reason for referral information availableWCleveland Clinic Work Phone: Advance Directives No Advanced Directives Records Found Advance Directive Response Recorded Date/ Time Living Will Yes December 06, 2 018 3:27pm Power of Harbour Master No December 06, 2017 3:27pm Advance Directive Response Recorded Date/ Time Living Will Yes December 06, 2 018 2:27pm Power of Harbour Master No December 06, 2017 2:27pm Advance Directive Response Recorded Date/ Time Living Will Yes April 28, 2023 9:41am Power of Harbour Master No April 28 9:41am Advance Directive Response Recorded Date/ Time Living Will Yes April 28, 2023 8:41am Power of Harbour Master No April 28 8:41am Chief Complaint and Reason for Visit Chief Complaint FIBROSIS OF LIVER Chief Complaint EORDER Consult EORDERS LIVER FIBROSIS Reason for Visit Abnormal liver enzym es Liver fibrosis Chief Complaint EORDER Consult EORDERS LIVER FIBROSIS CIRRHOSIS Reason for Visit Abnormal liver enzym es Liver fibrosis Chief Complaint 2 WK FU E-ORDER CIRRHOSIS E ORDERS Reason for Visit Alcoholic cirrhosis Diarrhea Chief Complaint 2 WK FU E-ORDER CIRRHOSIS E ORDERS Cirrhosis - 60 min INT LABS Reason for Visit Alcoholic cirrhosis Diarrhea Alcoholic cirrhosis Hypertriglyceridemia Chief Complaint Cirrhosis - 60 min INT LABS 3 MO FU E ORDERS (NOT IN SYSTEM YET) Reason for Visit Alcoholic cirrhosis Hypertriglyceridemia Alcoholic cirrhosis Hypertriglyceridemia Summary Purpose Family History No Family History Records Found Additional Source Comments Goals (unrecognized section and content) Goals may be documented in a n alternate sectionGoals may be documented in an alternate sectionGoals may be documented in an alternate sectionGoals may be documented in an alternate sectionGoals may be documented in an alternate sectionGoals may be documented in an alternate sectionGoals may be documented in an alternate sectionGoals may be documented in an alternate section Care Teams (unrecognized sec tion and content) Team Status: Active Member Role Status Dates Dr. Serge Chen MD Family Provider Active Dr. Serge Chen MD Primary Care Provider Activ e Team Status: Inactive Member Role Status Dates Dr. Serge Chen MD Primary Care Provider, Attending Provider, Referring Provider Active Team Status: Inactive Member Role Status Dates Dr. Serge Chen MD Primary Care Provider, Atte nding Provider Active Team Status: Inactive Member Role Status Dates Dr. Serge Chen MD Primary Care Provider, Refe rring Provider Active Jaylene Win SUPERVISOR FUNCTIONAL TESTING, SUPERVISOR FUNCTIONAL TESTING-C Attending Provider Active Team Status: Inactive Member Role Status Dates Dr. Serge Chen MD Primary Care Provider Activ e Dr. Juarez Mcdowell DO Attending Provider, Referring Provider Active Team Status: Inactive Member Role Status Dates Dr. Serge Chen MD Primary Care Provider Activ e Jaylene Win SUPERVISOR FUNCTIONAL TESTING, SUPERVISOR FUNCTIONAL TESTING-C Attending Provider, Referrin g Provider Active Team Status: Inactive Member Role Status Dates Dr. Serge Chen MD Primary Care Provider Activ e Jaylene Win SUPERVISOR FUNCTIONAL TESTING, SUPERVISOR FUNCTIONAL TESTING-C Other Provider Active Dr. Juarez Mcdowell DO Attending Provider, Referring Provider Active Team Status: Active Member Role Status Dates Dr. Serge Chen MD Primary Care Provider, Refe rring Provider Active Dr. Juarez Mcdowell DO Attending Provider, Other Prov ider Active Team Status: Inactive Member Role Status Dates Dr. Serge Chen MD Primary Care Provider, Refe rring Provider Active Dr. Juarez Mcdowell DO Attending Provider Active Production Machine Computer Operator Relationship Specialty Start Date End Date Kayleen Chen MD [address] [place] [id number] PCP - General Family Medicine 05/02/23 Team Status: Inactive Member Role Status Dates Dr. Serge Chen MD Primary Care Provider, Refe rring Provider Active Dr. Chris Costello MD Attending Provider Active Team Status: Inactive Member Role Status Dates Dr. Serge Chen MD Primary Care Provider Activ e Dr. Chris Costello MD Attending Provider, Referring P rovider Active Team Status: Active Member Role Status Dates Dr. Kayleen Chen MD Family Provider Active Dr. Kayleen Chen MD Primary Care Provider Acti ve Team Status: Inactive Member Role Status Dates Dr. Kayleen Chen MD Primary Care Provider, Ref erring Provider Active Dr. Chris Costello MD Attending Provider Active Team Status: Inactive Member Role Status Dates Dr. Kayleen Chen MD Primary Care Provider Acti ve Dr. Chris Costello MD Attending Provider, Referring P rovider Active Team Status: Inactive Member Role Status Dates Dr. Kayleen Chen MD Primary Care Provider Acti ve Start: April 01, 2025 End: April 01, 2025 Dr. Kayleen Chen MD Attending Provider Active Start: April 01, 2025 End: April 01, 2025 Team Status: Active Member Role/Relationship Status Dates Dr. Kayleen Chen MD Family Provider Active Dr. Kayleen Chen MD Primary Care Provider Acti ve Team Status: Inactive Member Role/Relationship Status Dates Dr. Kayleen Chen MD Primary Care Provider Acti ve Start: April 01, 2025 End: April 01, 2025 Dr. Kayleen Chen MD Attending Provider Active Start: April 01, 2025 End: April 01, 2025 Team Status: Inactive Member Role/Relationship Status Dates Dr. Kayleen Chen MD Primary Care Provider Acti ve Start: April 25, 2025 End: April 25, 2025 Dr. Kayleen Chen MD Attending Provider Active Start: April 25, 2025 End: April 25, 2025 Dr. Kayleen Chen MD Referring Provider Active Start: April 25, 2025 End: April 25, 2025 Source Comments (unrecognize d section and content) In the event this informatio n is protected by the Federal Confidentiality of Alcohol and Drug Abuse Patient Records regulations: The Federal rules restrict any use of the information to criminally investigate or prosecute any alcohol or drug abuse patient.[facility] Reason for Visit (unrecogniz ed section and content) Reason Comments Liver Disease Cirrhosis stage 4, f ull workup, [place] [facility]/CareEverywhere (unrecognized sect ion and content) No Status Records FoundNo Status Records Found INFORMATION SOURCE (unrecogn ized section and content) DATE CREATED AUTHOR 08/23/2023 [facility] DATE CREATED AUTHOR AUTHOR'S ORGANIZ ATION 08/08/2025 [facility] FOR RECORDS PERTAINING TO PATIENTS WHO ARE [...] BE BASED ON THE PRIMARY CLINICAL RECORDS. [facility]. provides no warranty or guarantee of the accuracy or completeness of information in this document.
[2025-10-01 12:24] LABS: Hematocrit 44.1 % (40-54); Hemoglobin 14.9 g/dL (13.0-16.5); Mean Corp Hgb Conc 33.8 g/dL (32-36); Mean Corpuscular Volume 97.6 fL (80-94); Mean Platelet Vol. 9.8 fl (6.2-12.0); Platelet Count 139 K/mm3 (150-450); RBC Distribution Width CV 12.5 % (11.6-14.6); RBC Distribution Width SD 45.1 fl (35.1-43.9); Red Blood Count 4.52 M/mm3 (4.6-6.2); White Blood Count 7.7 K/mm3 (4.4-11.0)
[2025-10-01 13:23] LABS: AST(SGOT) 50 U/L (<=37); Alanine Aminotransfer ALT/SGPT 47 U/L (<=46); Albumin, Serum 4.4 g/dL (3.4-4.8); Alkaline Phosphatase 99 U/L (40-129); Anion Gap 13 (7-18); BUN 10 mg/dL (4-19); BUN/Creat Ratio 10.6 RATIO (10-20); Calcium,Total 9.9 mg/dL (7.6-11.0); Carbon Dioxide 23.6 mmol/L (20.0-29.0); Chloride 101 mmol/L (96-106); Ferritin 94 ng/mL (37-417); Globulin 3.9 g/dL (2.2-4.2); Glucose 103 mg/dL (70-99); Potassium 4.1 mmol/L (3.5-5.1); Vitamin D,25 Hydroxy 33.4 ng/mL (30-100)
[2025-10-02 08:08] LABS: GGTP 261 IU/L (0-65)
== END 2025-10-01 23:59 | disposition home or self-care (01) ==
LOC: MTLAB 09:27
PROVIDERS: PCP Family Medicine; Referring Provider Family Medicine; Visit Provider Family Medicine
DX: K74.00 Hepatic fibrosis, unspecified (principal)
CPT/HCPCS: 36415; 80053; 82306; 82728; 82977; 85027